=== PATIENT | male | born 1955 | race Caucasian/White ===

== ENCOUNTER 2017-07-03 20:06 | Inpatient (IN) ==
[2017-07-03] MEDS ORDERED: ENOXAPARIN 120 MG/0.8 ML SYRINGE SUBCUT STA (20:28)
[2017-07-03] MEDS ORDERED: ASPIRIN CHEW 81 MG TABLET PO STA (20:28)
[2017-07-03 20:39] LABS: Basophils % 0.4 % (0.0-0.8); Eosinophils # 0.1 10*3/uL (0.0-0.87); Eosinophils % 1.4 % (0.00-10.9); Hematocrit 26.6 VOL% (42.0-52.0); Hemoglobin 9.4 GM/DL (14.0-18.0); Immature Granulocytes % 3.8 %; Immature Granulocytes Absolute 0.28 #; Lymphocytes # 1.7 10*3/uL (1.4-4.0); Lymphocytes % 23.5 % (21.2-54.2); Mean Corpuscular HGB Conc 35.3 GM/DL (32-36); Mean Corpuscular Hemoglobin 30 PG (27-34); Mean Corpuscular Volume 85.8 FL (87-102); Mean Platelet Volume 11.4 FL (9.6-12.0); Monocytes # 0.5 10*3/uL (0.11-0.8); NRBC # 0.13 10*3/uL; Neutrophils # 4.7 10*3/uL (1.4-7.4); Neutrophils % 63.9 % (38.7-73.9); Platelet Count 108 T/CUMM (130-400); Red Cell Distribution Width 18.9 % (9.3-17.3); White Blood Count 7.4 T/CUMM (4-12)
[2017-07-03] MEDS ORDERED: ENOXAPARIN 120 MG/0.8 ML SYRINGE SUBCUT ONE (20:43)
[2017-07-03] MEDS ORDERED: ASPIRIN 325 MG TABLET ONE (20:44)
--- NOTE | 2017-07-03 20:44 | XRay Report ---
Portable chest July 03, 2017 at 2031 hours Indication: Shortness of breath, chest pain Comparison: July 31, 2016 Findings: Cardiomediastinal contours are normal. Lungs are clear bilaterally. No acute osseous abnormalities. Note made of remote cervical fusion, uncomplicated. Visualized upper abdomen demonstrates no acute pathology. Impression: No acute cardiopulmonary findings PROCEDURE INTERPRETED AT [facility] DEPARTMENT OF RADIOLOGY Final Report Signed by: Basilio Cardozo
[2017-07-03 21:00] LABS: Blood Urea Nitrogen 17 MG/DL (7-18); Calcium 9.2 MG/DL (8.5-10.1); Glucose 289 MG/DL (74-106); Osmolality,Calculated 291.4 MOS/KG (273-304); Potassium 3.6 MMOL/L (3.5-5.1); Sodium 140 MMOL/L (136-145); Troponin I Only 0.016 NG/ML (0.00-0.045)
[2017-07-03] MEDS ORDERED: PANTOPRAZOLE 40 MG VIAL IV ONE (21:13)
--- NOTE | 2017-07-03 21:24 | Emergency Department Note ---
IJohan Manpreet, am scribing for, and in the presence of, Nael Meehan MD 20:37 . Zoran Arnold Hans, MD, personally performed the services described in this documentation, ascribed by Vinay Prado in my presence, and it is both accurate and complete . Arrival - Arrival Chief Complaint: Chest Pain Stated Complaint: chest pains ED Nursing Triage Note: C/O Chest pain- burning "behind sternum" and shortness of breath. Onset on and off for 3 weeks; Reports that the pain has been constant all day today. Pt reports that he has been taking Pepto Bismol with minimal relief. Mode of Arrival: Ambulatory Limitations: No Limitations Source: Patient Time Seen by Provider: 07/03/17 20:21 - History of Present Illness HPI Narrative: Pt is a 62 y/o male, with PMHx of HTN, IDDM, NIDDM, HLD, and GERD, who presents to the ED with CC of CP and SOB. The SOB began 2 weeks ago and has been getting worse. The CP began 1 week ago and is described as "a really bad heart burn directly under sternum." Pt states the pain is worse on exertion but is not present currently. Pt's family member states the pain raidates to left arm. Pt' s PCP is Dr. Krunal Cerrato and clerical assigner is Dr. Mena. Pt has had previous Heat Stents placed. No other pains/complaints reported to the ED. Onset (ago): week(s) (3 weeks but constant today) Consistency: constant, intermittent Severity: moderate Quality: burning ("Really bad heart burn") Allergies/Adverse Reactions: Allergies Allergy/AdvReac Type Severity Reaction Status Date / Time No Known Allergies Allergy Verified 05/02/15 06:22 Home Medications: Home Medications Medication Instructions Recorded Confirmed Type Amlodipine Besylate 5 mg PO DAILY 05/01/15 07/31/16 History Atorvastatin [Lipitor] 10 mg PO DAILY 05/01/15 07/31/16 History Cholecalciferol (Vitamin D3) 2,000 unit PO DAILY 05/01/15 07/31/16 History [Vitamin D3] Gabapentin 600 mg PO BID 05/01/15 07/31/16 History Gemfibrozil 600 mg PO BID 05/01/15 07/31/16 History Insulin Aspart Prot/Asp 70/30 90 unit SUBCUT BID 05/01/15 07/31/16 History [NovoLOG Mix 70/30] Omeprazole 20 mg PO DAILY 05/01/15 07/31/16 History Quinapril [Accupril] 10 mg PO DAILY 05/01/15 07/31/16 History Sertraline [Zoloft] 100 mg PO DAILY 05/01/15 07/31/16 History metFORMIN [Glucophage] 500 mg PO BID W/MEALS 05/01/15 07/31/16 History Aspirin Chew Tab 81 mg PO DAILY tablet 08/07/15 07/31/16 Rx Carvedilol [Coreg] 6.25 mg PO BID #60 tablet 08/07/15 07/31/16 Rx Cilostazol [Pletal] 50 mg PO BID #60 tablet 08/07/15 07/31/16 Rx Furosemide Tab [Lasix Tab] 20 mg PO DAILY #30 tablet 08/07/15 07/31/16 Rx Magnesium Chloride [Slow Mag] 128 mg PO BID tablet 08/07/15 07/31/16 Rx Niacin ER [Niaspan] 500 mg PO BEDTIME #30 tablet 08/07/15 07/31/16 Rx Nitroglycerin Sl Tab [Nitrostat] 0.4 mg SL Q5M PRN #25 tablet 08/07/15 07/31/16 Rx Clopidogrel [Plavix] 75 mg PO DAILY #30 tablet 08/01/16 Rx Magnesium Chloride [Slow Mag] 64 mg PO BID #60 tablet 08/01/16 Rx Review of System - Review of System 12 point system: reviewed and no additional remarkable complaints except as stated - Review of System Constitutional: Absent: chills, diaphoresis, fever Respiratory: Present: respiratory distress. Absent: cough Cardiovascular: Present: chest pain. Absent: dyspnea on exertion Gastrointestinal: Absent: abdominal pain, nausea, vomiting Genitourinary male: Absent: dysuria Musculoskeletal: Absent: arm pain, back pain Neurological: Absent: headache, weakness, numbness, paresthesias Medical,Surgical,& Family Hx - Medical History Cardio: History of: Hypertension Psychological: History of: Anxiety Disorders Neurology: No history of: Seizures HEENT: History of: Eye Problem (cherelle cataract) Endocrine: History of: Diabetes Mellitus (IDDM) (novolog sq), Diabetes Mellitus (NIDDM), Dyslipidemia Respiratory: History of: Obstructive Sleep Apnea (uses CPAP) Gastrointestinal: History of: GERD, GI Problems Musculoskeletal: History of: Back/Neck Problems - Surgical History HEENT Surgeries: Surgical HX of: Eye Surgery (CATARACT LT FOR RT 05/21/15) Patient denies: Tonsilectomy & Adenoidectomy Abdominal Surgeries: Surgical HX of: Abdominal Surgery (TO [employer]ACE [employer]) Orthopedic Surgeries: Surgical HX of;: Spinal Surgery (2 CERVICAL DISC REMOVED) - Family History Family History: Reports;: Family Hypertension (father), Family Stroke (father) - Social History Smoking Status: Former smoker Frequency of Alcohol Use: None Type of Drug Use: None Exam Vital Signs: Vital Signs Temperature 97.5 F L 07/03/17 20:16 Pulse Rate 95 H 07/03/17 20:16 Respiratory Rate 20 07/03/17 20:16 Blood Pressure 179/68 07/03/17 20:16 O2 Sat by Pulse Oximetry 97 07/03/17 20:07 - General General appearance: alert, in no apparent distress - Head Head exam: Present: atraumatic, normocephalic, normal inspection - Eye Eye exam: Present: normal appearance, PERRL, EOMI - ENT ENT exam: Present: normal exam, normal oropharynx, mucous membranes moist, TM's normal bilaterally - Neck Neck exam: Present: normal inspection, full ROM, trachea midline - Chest Chest inspection: Present: normal inspection, symmetric chest wall rise. Absent : tenderness - Respiratory Respiratory exam: Present: normal lung sounds bilaterally. Absent: respiratory distress - Cardiovascular Cardiovascular exam: Present: regular rate, normal rhythm, normal heart sounds - Abdominal Exam Abdominal exam: Present: soft, normal bowel sounds. Absent: distention, tenderness, guarding, rebound - Extremities Exam Extremities exam: Present: normal inspection, full ROM. Absent: tenderness - Back Exam Back exam: Present: normal inspection, full ROM. Absent: tenderness - Neurological Exam Neurological exam: Present: alert, oriented X3, CN II-XII intact, reflexes normal - Psychiatric Psychiatric exam: Present: normal affect, normal mood - Skin Skin exam: Present: warm, dry, intact, normal color. Absent: pallor Course Course Narrative: The patient was evaluated in the ER with EKG as well as lab work and his troponin was negative with EKG with initially some ST depression that normalized on repeat EKG. I discussed his presentation with Dr. Setswana is covering for Dr. Cerrato and he agreed to admit the patient for rule out of acute coronary syndrome and trending enzymes. I did also given Protonix 80 mg in the ER because he had some microcytic anemia it was worse than a year ago but his guaiac was negative. We will trend his enzymes in the hospital and he was given a therapeutic dose of Lovenox and a 324 mg chewable aspirin in the ER as well. He had no further chest pain in the ER. Results - Labs CBC & BMP: 07/03/17 20:19 07/03/17 20:19 Lab Results: I have reviewed the patients labs Labs: Laboratory Tests 07/03/17 20:19 WBC 7.4 RBC 3.10 L Hgb 9.4 L Hct 26.6 L MCV 85.8 L MCH 30 MCHC 35.3 RDW 18.9 H Plt Count 108 L MPV 11.4 Neut % (Auto) 63.9 Lymph % (Auto) 23.5 [place] % (Auto) 7.0 Eos % (Auto) 1.4 Baso % (Auto) 0.4 Neut # (Auto) 4.7 Lymph # (Auto) 1.7 [place] # (Auto) 0.5 Eos # (Auto) 0.1 Baso # (Auto) 0.0 Immature Gran % 3.8 Nucleated RBC % 1.8 Immature Gran # 0.28 Nucleated RBCs # 0.13 Immature Plt Fraction 0.0 Laboratory Tests 07/03/17 20:19 WBC 7.4 RBC 3.10 L Hgb 9.4 L Hct 26.6 L MCV 85.8 L MCH 30 MCHC 35.3 RDW 18.9 H Plt Count 108 L MPV 11.4 Neut % (Auto) 63.9 Lymph % (Auto) 23.5 [place] % (Auto) 7.0 Eos % (Auto) 1.4 Baso % (Auto) 0.4 Neut # (Auto) 4.7 Lymph # (Auto) 1.7 [place] # (Auto) 0.5 Eos # (Auto) 0.1 Baso # (Auto) 0.0 Immature Gran % 3.8 Nucleated RBC % 1.8 Immature Gran # 0.28 Nucleated RBCs # 0.13 Immature Plt Fraction 0.0 Laboratory Tests 07/03/17 07/03/17 20:19 20:19 D-Dimer, Quantitative <= 0.5 Sodium 140 Potassium 3.6 Chloride 104 Carbon Dioxide 28 Anion Gap 11.6 BUN 17 Creatinine 1.00 GFR Calculation 105 BUN/Creatinine Ratio 17.00 Glucose 289 H Calculated Osmolality 291.4 Calcium 9.2 Magnesium 2.0 Total Creatine Kinase 148 CK-MB (CK-2) 1.3 Troponin I 0.016 - Diagnostic Findings Procedure: Chest x-ray: report reviewed by me ("Chest X-ray: No acute cardiopulmonary findings.") Disposition Clinical Impression: Atypical chest pain, Chest pain Case discussed with: patient Disposition: Still a Patient Condition: Stable Instructions: Chest Pain (ED) Time of Disposition: 21:24
[2017-07-03] MEDS ORDERED: MAGNESIUM SULF RIDER 2 GM in PREMIX 1 EACH IV PRN (22:58)
[2017-07-03] MEDS ORDERED: MAGNESIUM SULF RIDER 4 GM in PREMIX 1 EACH IV PRN (22:58)
[2017-07-04] MEDS: SODIUM CHLORIDE 0.9% 1,000 ML IV SCH ×3 (00:06→21:07)
[2017-07-04 01:07] LABS: Troponin I Only 0.026 NG/ML (0.00-0.045)
[2017-07-04 05:37] LABS: Basophils % 0.6 % (0.0-0.8); Eosinophils # 0.1 10*3/uL (0.0-0.87); Eosinophils % 1.6 % (0.00-10.9); Hematocrit 26.5 VOL% (42.0-52.0); Hemoglobin 9.1 GM/DL (14.0-18.0); Immature Granulocytes % 3.9 %; Immature Granulocytes Absolute 0.27 #; Lymphocytes # 1.7 10*3/uL (1.4-4.0); Lymphocytes % 24.9 % (21.2-54.2); Mean Corpuscular HGB Conc 34.3 GM/DL (32-36); Mean Corpuscular Hemoglobin 30 PG (27-34); Mean Corpuscular Volume 87.2 FL (87-102); Mean Platelet Volume 11.5 FL (9.6-12.0); Monocytes # 0.5 10*3/uL (0.11-0.8); Monocytes % 7.6 % (1.7-12.7); NRBC # 0.09 10*3/uL; Neutrophils # 4.2 10*3/uL (1.4-7.4); Neutrophils % 61.4 % (38.7-73.9); Platelet Count 94 T/CUMM (130-400); Red Blood Count 3.04 MC/CUMM (3.8-5.5); Red Cell Distribution Width 18.8 % (9.3-17.3); White Blood Count 6.9 T/CUMM (4-12)
[2017-07-04 06:06] LABS: Calcium 8.7 MG/DL (8.5-10.1); Osmolality,Calculated 289.1 MOS/KG (273-304); Potassium 3.7 MMOL/L (3.5-5.1)
--- NOTE | 2017-07-04 06:56 | EKG Report ---
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
[2017-07-04 07:25] LABS: Macrocytosis 1+; Polychromasia Slight; Target Cells Slight
[2017-07-04 07:26] LABS: Platelet Estimate Decreased; Spherocytes 2+
--- NOTE | 2017-07-04 07:44 | EKG Report ---
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
[2017-07-04 08:05] LABS: Troponin I Only 0.017 NG/ML (0.00-0.045)
[2017-07-04] MEDS: PANTOPRAZOLE 40 MG VIAL IV SCH (11:40)
[2017-07-04] MEDS ORDERED: MAGNESIUM SULF RIDER 2 GM in PREMIX 1 EACH IV PRN (12:22)
[2017-07-04] MEDS ORDERED: POTASSIUM CHLORIDE RIDER 10 MEQ in PREMIX 1 EACH IV PRN (12:22)
[2017-07-04] MEDS ORDERED: NITROGLYCERIN SL 0.4 MG TABLET SL PRN (12:23)
--- NOTE | 2017-07-04 12:27 | Cardiology Consult Note ---
Assessment and Plan (1) Crescendo angina Status: Acute Assessment and plan: The patient has been having crescendo angina symptoms. He has known coronary artery disease with previous stenting. His symptoms mirror the last time he needs stents. I think he needs cardiac catheterization for definitive coronary artery assessment and possible revascularization. I discussed the risks and alternatives with the patient today and plan to proceed with this procedure tomorrow via the right radial artery. Current Visit: Yes (2) Coronary artery disease Status: Acute Assessment and plan: As noted above he has a history of multivessel coronary artery disease with previous stenting. His current symptoms warrant repeat workup with cardiac catheterization. Current Visit: Yes (3) History of coronary artery stent placement Status: Acute Current Visit: Yes (4) Diabetes mellitus Status: Acute Assessment and plan: We will resume his usual medications with the exception of holding his metformin to facilitate catheterization. Current Visit: No (5) Dyslipidemia Status: Acute Assessment and plan: Resume usual home medication. Current Visit: No (6) Essential hypertension Status: Acute Assessment and plan: Resume usual home medication. Current Visit: No (7) Obstructive sleep apnea Status: Acute Current Visit: No History of Present Illness - Consult Narrative History of present illness: Mr. Mota is a 62 year old male who is normally followed by Dr. Mena. He has a history of multiple medical problems including hypertension, hyperlipidemia, diabetes, coronary artery disease with previous stenting, obesity, and obstructive sleep apnea. The patient reports that over the last couple of weeks he has noticed having increasing exertional anginal symptoms. This reminds him of the previous time that he needed percutaneous coronary intervention. He has had stents placed twice in the past. [place] reports [place] he developed angina with exertion. These of the same kind of symptoms he has had before. This is a moderate sensation of discomfort or pressure in the left side of his chest which can radiate to his arms. The symptoms seem to improve with rest. There are no associated symptoms such as nausea or diaphoresis. There is no fever, chills, or cough. He does have some mild chronic dyspnea on exertion. He denies any orthopnea, PND, or peripheral edema. He describes some chronic neuropathy symptoms in his legs. He has a long-standing history of hypertension which is been fairly well-controlled on his current medical regimen. He has a long-standing history of diabetes which is also been fairly well controlled. He has hyperlipidemia and is on appropriate medical therapy. He denies any syncope or presyncope. He does state that he has some "heartburn ", although it is unclear if the symptoms may simply represent angina. Today his old records, previous cardiac cath, EKGs, labs, medications were all reviewed. CC: Marvel Cerrato MD - Home Medications and Allergies Home Medications: Home Medications Medication Instructions Recorded Confirmed Type Amlodipine Besylate 5 mg PO DAILY 05/01/15 07/03/17 History Atorvastatin [Lipitor] 10 mg PO DAILY 05/01/15 07/03/17 History Gabapentin 600 mg PO BID 05/01/15 07/03/17 History Gemfibrozil 600 mg PO BID 05/01/15 07/03/17 History Insulin Aspart Prot/Asp 70/30 100 unit SUBCUT BID 05/01/15 07/03/17 History [NovoLOG Mix 70/30] Omeprazole 20 mg PO DAILY 05/01/15 07/03/17 History Quinapril [Accupril] 10 mg PO DAILY 05/01/15 07/03/17 History Sertraline [Zoloft] 100 mg PO DAILY 05/01/15 07/03/17 History metFORMIN [Glucophage] 500 mg PO BID W/MEALS 05/01/15 07/03/17 History Aspirin Chew Tab 81 mg PO DAILY tablet 08/07/15 07/03/17 Rx Carvedilol [Coreg] 6.25 mg PO BID #60 tablet 08/07/15 07/03/17 Rx Cilostazol [Pletal] 50 mg PO BID #60 tablet 08/07/15 07/03/17 Rx Furosemide Tab [Lasix Tab] 20 mg PO DAILY #30 tablet 08/07/15 07/03/17 Rx Nitroglycerin Sl Tab [Nitrostat] 0.4 mg SL Q5M PRN #25 tablet 08/07/15 07/03/17 Rx Clopidogrel [Plavix] 75 mg PO DAILY #30 tablet 08/01/16 07/03/17 Rx Insulin Degludec [Tresiba 34 units SUBCUT BEDTIME 07/03/17 07/03/17 History Flextouch U-100] Ranitidine Tab [Zantac Tab] 1 tablet PO DAILY 09/02/17 09/02/17 History Allergies/Adverse Reactions: Allergies Allergy/AdvReac Type Severity Reaction Status Date / Time No Known Allergies Allergy Verified 05/02/15 06:22 12 point system: reviewed and no additional remarkable complaints except as stated Medical,Surgical,& Family Hx - Medical History Cardio: History of: Hypertension Psychological: History of: Anxiety Disorders Neurology: No history of: Seizures HEENT: History of: Eye Problem (cherelle cataract) Endocrine: History of: Diabetes Mellitus (IDDM) (novolog sq), Diabetes Mellitus (NIDDM), Dyslipidemia Respiratory: History of: Obstructive Sleep Apnea (uses CPAP) Gastrointestinal: History of: GERD, GI Problems Musculoskeletal: History of: Back/Neck Problems - Surgical History Cardiac Surgeries: Sugical HX of: Cardiac Catheterization (2014,2016 Stents x2) , Carotid Endarterectomy HEENT Surgeries: Surgical HX of: Carotid Endarterectomy, Eye Surgery (CATARACT LT FOR RT 05/21/15) Patient denies: Tonsilectomy & Adenoidectomy Abdominal Surgeries: Surgical HX of: Abdominal Surgery (TO REPLACE NAVAL) Orthopedic Surgeries: Surgical HX of;: Spinal Surgery (2 CERVICAL DISC REMOVED) - Family History Family History: Reports;: Family Hypertension (father), Family Stroke (father) - Social History Smoking Status: Former smoker Frequency of Alcohol Use: None Type of Drug Use: None Physical Examination Vital Signs Temp Pulse Resp BP Pulse Ox 97.5 F L 95 H 20 179/68 97 07/03/17 20:07 07/03/17 20:07 07/03/17 20:07 07/03/17 20:07 07/03/17 20:07 Exam: General: Appears well developed, well nourished, no apparent distress HEENT: Normocephalic, morbidly obese, atraumatic Neck: Supple Neck, Midline Trachea, No Bruit, No JVD Cardiac: Regular rhythm, 2 out of 6 murmur, no gallop, no rub Lungs: Clear to auscultation, No Wheeze, Rales, Rhonchi Neuro: Cranial Nerve 2-12 Intact, Motor Function Grossly Intact Abdomen: Soft, Active Bowel Sounds, No Masses, No Pulsations/Bruits Skin: Normal color, no rash Extremities: No Clubbing, No Cyanosis, No Edema, Normal Upper Extr. Pulses Musculoskeletal: No acute abnormality noted Psychiatric: The patient does not appear to be anxious or depressed Result/EKG - Labs CBC & BMP: 07/04/17 05:14 07/04/17 05:14 Lab Results: I have reviewed the past 24 hour labs Labs: Laboratory Results - last 24 hr 07/03/17 07/03/17 07/03/17 20:19 20:19 20:19 WBC 7.4 RBC 3.10 L Hgb 9.4 L Hct 26.6 L MCV 85.8 L MCH 30 MCHC 35.3 RDW 18.9 H Plt Count 108 L MPV 11.4 Neut % (Auto) 63.9 Lymph % (Auto) 23.5 [place] % (Auto) 7.0 Eos % (Auto) 1.4 Baso % (Auto) 0.4 Neut # (Auto) 4.7 Lymph # (Auto) 1.7 [place] # (Auto) 0.5 Eos # (Auto) 0.1 Baso # (Auto) 0.0 Immature Gran % 3.8 Nucleated RBC % 1.8 Immature Gran # 0.28 Nucleated RBCs # 0.13 Platelet Estimate Immature Plt Fraction 0.0 Polychromasia Macrocytosis Spherocytes Target Cells D-Dimer, Quantitative <= 0.5 Sodium 140 Potassium 3.6 Chloride 104 Carbon Dioxide 28 Anion Gap 11.6 BUN 17 Creatinine 1.00 GFR Calculation 105 BUN/Creatinine Ratio 17.00 Glucose 289 H Calculated Osmolality 291.4 Calcium 9.2 Magnesium 2.0 Total Creatine Kinase 148 CK-MB (CK-2) 1.3 Troponin I 0.016 07/03/17 07/04/17 07/04/17 23:57 05:14 05:14 WBC 6.9 RBC 3.04 L Hgb 9.1 L Hct 26.5 L MCV 87.2 MCH 30 MCHC 34.3 RDW 18.8 H Plt Count 94 L MPV 11.5 Neut % (Auto) 61.4 Lymph % (Auto) 24.9 [place] % (Auto) 7.6 Eos % (Auto) 1.6 Baso % (Auto) 0.6 Neut # (Auto) 4.2 Lymph # (Auto) 1.7 [place] # (Auto) 0.5 Eos # (Auto) 0.1 Baso # (Auto) 0.0 Immature Gran % 3.9 Nucleated RBC % 1.3 Immature Gran # 0.27 Nucleated RBCs # 0.09 Platelet Estimate Decreased Immature Plt Fraction 0.0 Polychromasia Slight Macrocytosis 1+ Spherocytes 2+ Target Cells Slight D-Dimer, Quantitative Sodium 142 Potassium 3.7 Chloride 106 Carbon Dioxide 30 Anion Gap 9.7 BUN 17 Creatinine 1.00 GFR Calculation 106 BUN/Creatinine Ratio 17.00 Glucose 194 H Calculated Osmolality 289.1 Calcium 8.7 Magnesium Total Creatine Kinase 132 CK-MB (CK-2) 1.6 Troponin I 0.026 07/04/17 07:17 WBC RBC Hgb Hct MCV MCH MCHC RDW Plt Count MPV Neut % (Auto) Lymph % (Auto) [place] % (Auto) Eos % (Auto) Baso % (Auto) Neut # (Auto) Lymph # (Auto) [place] # (Auto) Eos # (Auto) Baso # (Auto) Immature Gran % Nucleated RBC % Immature Gran # Nucleated RBCs # Platelet Estimate Immature Plt Fraction Polychromasia Macrocytosis Spherocytes Target Cells D-Dimer, Quantitative Sodium Potassium Chloride Carbon Dioxide Anion Gap BUN Creatinine GFR Calculation BUN/Creatinine Ratio Glucose Calculated Osmolality Calcium Magnesium Total Creatine Kinase 94 D CK-MB (CK-2) < 1.0 Troponin I 0.017 - EKG EKG results: interpreted by me Quality Measures - VTE Contraindication to Pharmacological VTE Prophylaxis: Already on Theraputic Agent , No Prophylaxis Needed Specialty Discharge - Follow Up or Referrals
--- NOTE | 2017-07-04 13:06 | EKG Report ---
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
[2017-07-04] MEDS ORDERED: ACETAMINOPHEN 325 MG TABLET PO PRN (13:51)
[2017-07-04] MEDS ORDERED: ONDANSETRON 4 MG/2 ML VIAL IV PRN (13:51)
[2017-07-04] MEDS: amLODIPine 5 MG TABLET PO SCH (13:52)
[2017-07-04] MEDS: ASPIRIN CHEW 81 MG TABLET PO SCH (13:53)
[2017-07-04] MEDS: FUROSEMIDE 20 MG TABLET PO SCH (13:53)
[2017-07-04] MEDS: CLOPIDOGREL 75 MG TABLET PO SCH (13:53)
[2017-07-04] MEDS: ATORVASTATIN 10 MG TABLET PO SCH (13:53)
[2017-07-04] MEDS: QUINAPRIL 20 MG TABLET PO SCH (13:54)
[2017-07-04] MEDS: SERTRALINE 100 MG TABLET PO SCH (13:54)
--- NOTE | 2017-07-04 14:23 | Family Practice History&Phys ---
Assessment and Plan (1) Substernal chest pain Status: Acute Assessment and plan: Patient was admitted with progressive substernal chest pain over the last 2 weeks. The pain is very similar to pain he has had in the past with coronary artery disease. He said coronary artery stenting 2. Have consulted cardiology and tentatively plan for cardiac catheterization in a.m. Current Visit: Yes (2) Unstable angina Status: Acute Assessment and plan: Patient's symptoms are consistent with previous coronary disease. Current Visit: No (3) Exertional dyspnea Status: Acute Assessment and plan: Patient has noted a significant change in his exertional dyspnea. States that he can only walk short distances without developing significant dyspnea. Current Visit: Yes (4) Diabetes mellitus Status: Chronic Assessment and plan: Stable on present medications. Have started sliding scale Current Visit: No (5) Dyslipidemia Status: Chronic Assessment and plan: Stable on present medications Current Visit: No (6) Essential hypertension Status: Chronic Assessment and plan: Stable on present medication Current Visit: No (7) Obstructive sleep apnea Status: Chronic Assessment and plan: Patient is presently using CPAP and states that his symptoms are well controlled Current Visit: No History of Present Illness Chief complaint: Chest pain and dyspnea History of present illness: Mr. Mota is a 62 year old male Patient is a 62-year-old white male who was seen in the emergency room complaining of 2 week history of progressive exertional dyspnea and chest pain. The chest pain is substernal and is very similar to pain he has had in the past with coronary disease. Patient has known coronary artery disease with previous stenting. He apparently has had stenting done twice in the past. His EKGs and isoenzymes were stable in the emergency room. Patient has multiple other risk factors. In view of history we will admit for further evaluation therapy Home Medications Medication Instructions Recorded Confirmed Type Amlodipine Besylate 5 mg PO DAILY 05/01/15 07/03/17 History Atorvastatin [Lipitor] 10 mg PO DAILY 05/01/15 07/03/17 History Gabapentin 600 mg PO BID 05/01/15 07/03/17 History Gemfibrozil 600 mg PO BID 05/01/15 07/03/17 History Insulin Aspart Prot/Asp 70/30 100 unit SUBCUT BID 05/01/15 07/03/17 History [NovoLOG Mix 70/30] Omeprazole 20 mg PO DAILY 05/01/15 07/03/17 History Quinapril [Accupril] 10 mg PO DAILY 05/01/15 07/03/17 History Sertraline [Zoloft] 100 mg PO DAILY 05/01/15 07/03/17 History metFORMIN [Glucophage] 500 mg PO BID W/MEALS 05/01/15 07/03/17 History Aspirin Chew Tab 81 mg PO DAILY tablet 08/07/15 07/03/17 Rx Carvedilol [Coreg] 6.25 mg PO BID #60 tablet 08/07/15 07/03/17 Rx Cilostazol [Pletal] 50 mg PO BID #60 tablet 08/07/15 07/03/17 Rx Furosemide Tab [Lasix Tab] 20 mg PO DAILY #30 tablet 08/07/15 07/03/17 Rx Nitroglycerin Sl Tab [Nitrostat] 0.4 mg SL Q5M PRN #25 tablet 08/07/15 07/03/17 Rx Clopidogrel [Plavix] 75 mg PO DAILY #30 tablet 08/01/16 07/03/17 Rx Insulin Degludec [Tresiba 34 units SUBCUT BEDTIME 07/03/17 07/03/17 History Flextouch U-100] Ranitidine Tab [Zantac Tab] 1 tablet PO DAILY 07/03/17 07/03/17 History Allergies Allergy/AdvReac Type Severity Reaction Status Date / Time No Known Allergies Allergy Verified 05/02/15 06:22 Medical,Surgical,& Family Hx - Medical History Cardio: History of: Hypertension Psychological: History of: Anxiety Disorders Neurology: No history of: Seizures HEENT: History of: Eye Problem (cherelle cataract) Endocrine: History of: Diabetes Mellitus (IDDM) (novolog sq), Diabetes Mellitus (NIDDM), Dyslipidemia Respiratory: History of: Obstructive Sleep Apnea (uses CPAP) Gastrointestinal: History of: GERD, GI Problems Musculoskeletal: History of: Back/Neck Problems - Surgical History Cardiac Surgeries: Sugical HX of: Cardiac Catheterization (2014,2015 Stents x2) , Carotid Endarterectomy HEENT Surgeries: Surgical HX of: Carotid Endarterectomy, Eye Surgery (CATARACT LT FOR RT 05/21/15) Patient denies: Tonsilectomy & Adenoidectomy Abdominal Surgeries: Surgical HX of: Abdominal Surgery (TO REPLACE NAVAL) Orthopedic Surgeries: Surgical HX of;: Spinal Surgery (2 CERVICAL DISC REMOVED) - Family History Family History: Reports;: Family Hypertension (father), Family Stroke (father) - Social History Smoking Status: Former smoker Have you smoked in the last 12 months: No Frequency of Alcohol Use: None Type of Drug Use: None Exam - Constitutional Vitals: Period Temp Pulse Resp BP Sys/Dunn Pulse Ox Last 24 Hr 96.1 F-99.1 F 63-95 18-20 130-185/60-82 96-99 General appearance: no acute distress - Head Head exam: Present: normal inspection - Eye Pupils: Present: STEPHANIE - ENT ENT exam: Present: normal exam - Neck Neck exam: Present: normal inspection - Respiratory Respiratory exam: Present: clear to auscultation bilaterally - Cardiovascular Cardiovascular exam: Present: regular rate and rhythm, systolic murmur - GI/Abdominal GI/Abdominal exam: Present: normal bowel sounds, soft - Extremities Exam Extremities exam: Present: normal inspection - Back Exam Back exam: Present: normal inspection - Neurological Exam Neurological exam: Present: alert, oriented X3 - Psychiatric Psychiatric exam: Present: normal affect, normal mood - Skin Skin exam: Present: normal color Results - Labs CBC & BMP: 07/04/17 05:14 07/04/17 05:14 Quality Measures - VTE Contraindication to Pharmacological VTE Prophylaxis: Already on Theraputic Agent , No Prophylaxis Needed
[2017-07-04 16:04] LABS: Troponin I Only < 0.015 NG/ML (0.00-0.045)
[2017-07-04] MEDS: CARVEDILOL 6.25 MG TABLET PO SCH (16:53)
[2017-07-04] MEDS: INSULIN LISPRO 100 UNIT/ML SUBCUT SCH ×2 (16:53→21:09)
[2017-07-04] MEDS: INSULIN ASPART PROTAMINE/ASPART 70/30 100 UNIT/ML SUBCUT SCH (16:54)
[2017-07-04] MEDS ORDERED: INSULIN DEGLUDEC 34 UNIT SUBCUT SCH (21:00)
[2017-07-04] MEDS: GABAPENTIN 600 MG TABLET PO SCH (21:09)
[2017-07-04] MEDS: GEMFIBROZIL 600 MG TABLET PO SCH (21:09)
[2017-07-04] MEDS: DOCUSATE SODIUM 100 MG CAPSULE PO SCH (21:10)
[2017-07-04] MEDS: CILOSTAZOL 50 MG TABLET PO SCH (21:12)
[2017-07-05 05:15] LABS: Basophils % 0.6 % (0.0-0.8); Eosinophils # 0.1 10*3/uL (0.0-0.87); Eosinophils % 1.9 % (0.00-10.9); Hematocrit 26.6 VOL% (42.0-52.0); Hemoglobin 9.3 GM/DL (14.0-18.0); Immature Granulocytes % 1.9 %; Immature Granulocytes Absolute 0.13 #; Lymphocytes # 1.3 10*3/uL (1.4-4.0); Lymphocytes % 19.7 % (21.2-54.2); Mean Corpuscular Hemoglobin 30 PG (27-34); Mean Corpuscular Volume 86.9 FL (87-102); Mean Platelet Volume 11.6 FL (9.6-12.0); Monocytes # 0.5 10*3/uL (0.11-0.8); Monocytes % 7.5 % (1.7-12.7); NRBC # 0.09 10*3/uL; Neutrophils # 4.7 10*3/uL (1.4-7.4); Neutrophils % 68.4 % (38.7-73.9); Platelet Count 96 T/CUMM (130-400); Red Blood Count 3.06 MC/CUMM (3.8-5.5); Red Cell Distribution Width 18.9 % (9.3-17.3); White Blood Count 6.8 T/CUMM (4-12)
[2017-07-05] MEDS: SODIUM CHLORIDE 0.9% 1,000 ML IV SCH (05:29)
[2017-07-05 05:44] LABS: Eosinophils 1 % (0-10); Hypochromasia 1+; Lymphocytes 20 % (20-55); Microcytosis 1+; Platelet Estimate Decreased; Segmented Neutrophils 73 % (50-85); Total Cells Counted 100
[2017-07-05 05:48] LABS: Calcium 8.6 MG/DL (8.5-10.1); Osmolality,Calculated 282.3 MOS/KG (273-304); Potassium 3.4 MMOL/L (3.5-5.1); Risk Ratio 4.44; VLDL CHOLESTEROL 73.6 MG/DL
[2017-07-05] MEDS ORDERED: diphenhydrAMINE CAP 25 MG CAPSULE PO ONE (07:00)
[2017-07-05] MEDS ORDERED: DIAZEPAM 5 MG TABLET PO ONE (07:00)
[2017-07-05] MEDS: PANTOPRAZOLE 40 MG VIAL IV SCH (08:09)
[2017-07-05] MEDS ORDERED: QUINAPRIL 20 MG TABLET PO SCH (09:00)
[2017-07-05] MEDS ORDERED: FUROSEMIDE 20 MG TABLET PO SCH (09:00)
[2017-07-05] MEDS ORDERED: ATORVASTATIN 10 MG TABLET PO SCH (09:00)
[2017-07-05] MEDS ORDERED: ASPIRIN CHEW 81 MG TABLET PO SCH (09:00)
[2017-07-05] MEDS ORDERED: SERTRALINE 100 MG TABLET PO SCH (09:00)
[2017-07-05] MEDS ORDERED: CLOPIDOGREL 75 MG TABLET PO SCH (09:00)
[2017-07-05] MEDS ORDERED: NON-FORMULARY MEDICATION (Omeprazole [Omeprazole] 20 MG) PO SCH (09:00)
[2017-07-05] MEDS ORDERED: amLODIPine 5 MG TABLET PO SCH (09:00)
[2017-07-05] MEDS ORDERED: HEPARIN/NACL 0.9% 2 UNITS/ML 1,000 ML IV ONE (09:18)
[2017-07-05] MEDS ORDERED: LIDOCAINE 1% 20 ML VIAL ONE (09:18)
[2017-07-05] MEDS ORDERED: VERAPAMIL 5 MG/2 ML VIAL ONE (09:18)
[2017-07-05] MEDS ORDERED: NITROGLYCERIN DRIP 50 MG/250 ML BOTTLE IV ONE (09:18)
[2017-07-05] MEDS: FAMOTIDINE 20 MG TABLET PO SCH (09:47)
[2017-07-05] MEDS: CLOPIDOGREL 75 MG TABLET PO SCH (09:47)
[2017-07-05] MEDS: amLODIPine 5 MG TABLET PO SCH (09:48)
[2017-07-05] MEDS: QUINAPRIL 20 MG TABLET PO SCH (09:52)
[2017-07-05] MEDS: CARVEDILOL 6.25 MG TABLET PO SCH ×2 (09:53→17:37)
[2017-07-05] MEDS: ASPIRIN CHEW 81 MG TABLET PO SCH (09:53)
[2017-07-05] MEDS: CILOSTAZOL 50 MG TABLET PO SCH ×2 (09:54→21:08)
[2017-07-05] MEDS ORDERED: MIDAZOLAM 2 MG/2 ML VIAL ONE (10:06)
[2017-07-05] MEDS ORDERED: HYDROmorphone 2 MG/1 ML VIAL ONE (10:06)
[2017-07-05] MEDS ORDERED: ENOXAPARIN 30 MG/0.3 ML SYRINGE ONE (10:21)
[2017-07-05] MEDS ORDERED: CLOPIDOGREL 300 MG TABLET ONE (10:28)
--- NOTE | 2017-07-05 11:05 | Cardiac Catheterization ---
Date of Procedure:: 07/05/17 Procedure: CLINICAL HISTORY: The patient has a known history of coronary artery disease with previous stenting. He presented with crescendo angina symptoms and is undergoing cardiac catheterization for definitive coronary artery assessment possible revascularization. PROCEDURES PERFORMED: 1. Right radial percutaneous arteriotomy 2. Left heart catheterization 3. Resting hemodynamics 4. Left ventriculography. 5. Coronary arteriography 6. Hemoband placement 7. Successful percutaneous coronary intervention to the mid left anterior descending coronary artery with a 2.5 x 15 mm Xience alpine drug-eluting stent placed at 15 jerel of pressure. 8. Successful percutaneous coronary intervention to the mid right coronary artery with a 2.5 x 12 mm Xience alpine drug-eluting stent inflated to 20 jerel of pressure. DESCRIPTION OF PROCEDURE: After obtaining informed consent, the patient was taken to the slab polisher, prepped and draped in the usual sterile manner. We accessed the right radial artery using modified Seldinger technique in the usual fashion. We placed a 6-[place] slim sheath without difficulty. We then used a Tig catheter to engage the right coronary and left main coronary arteries to perform angiography in multiple orthogonal views. We then proceeded directly to percutaneous coronary intervention. The high-grade disease in the mid left anterior descending coronary artery and in the mid right coronary artery. We engaged the left main coronary artery with a EBU 3.5 interventional guide and passed PT Graphix wire beyond the area of stenosis in the LAD. We performed primary stenting with a 2.5 x 15 mm Xience alpine drug- eluting stent. An excellent angiographic result was achieved. We then removed this catheter and used an AR-1 interventional guide to engage the right coronary artery and passed a PT Graphix wire beyond the area of stenosis in this vessel. We then perform primary stenting with a 2.5 x 12 mm Xience alpine drug-eluting stent. An excellent angiographic result was achieved. There were no problems or complications during the procedure. We then used an angled pigtail catheter to perform a left heart catheterization with left ventriculogram and pressure measurement in the usual fashion. After removing the catheter, we placed a HemoBand and removed the sheath without difficulty. There were no problems during the case. HEMODYNAMICS: Please see the accompanying data sheet. Left jugular end- diastolic pressure was 29 mmHg CORONARIES: The left main coronary artery is a large-caliber vessel which trifurcates into the left anterior descending left circumflex and ramus intermedius branches. The left main coronary artery is angiographically free of significant obstructive disease. The left circumflex coronary artery is a moderate-sized vessel which gives off a very small first obtuse marginal branch. The second obtuse marginal was occluded at its origin and fills via collaterals. There is a extensive posterior lateral system. There are mild luminal irregularities of up to 50 % in the mid circumflex coronary artery. The distal vessel also has a 60% stenosis at a bifurcation point. The left anterior descending is a moderate-sized vessel gives off a moderate- sized diagonal branch and wraps the apex. There is some diffuse moderate disease of 30-40% throughout the proximal to mid vessel, as well as in the distal vessel. There is a focal area of 90% stenosis distal to the first diagonal branch. The right coronary artery is a moderate-sized vessel which gives off the posterior descending artery. There is a focal 90% stenosis in the mid vessel. There is a stent in the proximal to mid vessel which is widely patent. LEFT VENTRICULOGRAPHY: Left ventriculogram shows left ventricular ejection fraction of approximately 60-65% with normal regional wall motion. IMPRESSION: 1. Successful percutaneous coronary intervention to the mid left anterior descending coronary artery with a 2.5 x 50 mm Xience alpine drug-eluting stent. 2. Successful percutaneous coronary intervention to the mid right coronary artery with a 2.5 x 12 mm Xience alpine drug-eluting stent. 3. Mild to moderate elevated left ventricular end-diastolic pressure. 4. Normal left ventricular systolic function as described above. PLAN: Patient underwent successful revascularization of his right and left anterior descending coronary arteries. We will monitor him on telemetry overnight and continue medical management. If he does well overnight I would anticipate possible discharge home tomorrow. There were no apparent problems or complications with the procedure. Anesthesia: minimal conscious sedation Surgeon / Physician: Sebastian Juarez Estimated blood loss: minimal Condition: stable Disposition: floor - Medications / Follow-up
[2017-07-05] MEDS ORDERED: SODIUM CHLORIDE 0.9% 1,000 ML IV SCH (11:30)
[2017-07-05] MEDS: ATORVASTATIN 10 MG TABLET PO SCH (12:55)
[2017-07-05] MEDS: INSULIN ASPART PROTAMINE/ASPART 70/30 100 UNIT/ML SUBCUT SCH ×2 (12:55→17:37)
[2017-07-05] MEDS: INSULIN LISPRO 100 UNIT/ML SUBCUT SCH ×4 (12:56→21:08)
[2017-07-05] MEDS: GEMFIBROZIL 600 MG TABLET PO SCH ×2 (12:57→21:08)
[2017-07-05] MEDS: DOCUSATE SODIUM 100 MG CAPSULE PO SCH ×2 (12:58→21:08)
[2017-07-05] MEDS: GABAPENTIN 600 MG TABLET PO SCH ×2 (12:58→21:08)
[2017-07-05] MEDS: FUROSEMIDE 20 MG TABLET PO SCH (12:58)
--- NOTE | 2017-07-05 13:24 | Family Practice Progress Note ---
Family Practice - PN: Subj Interval history: 07/05/17 -patient is presently stable following cardiac catheterization with successful stenting of two vessels. Patient tolerated procedure well with no complications. Presently doing well. His labs are stable except for slight decrease in the potassium 3.4 which has been supplemented. His physical examination is otherwise stable. We will continue present treatment plan Exam (Progress Note) - Constitutional Vitals: Period Temp Pulse Resp BP Sys/Dunn Pulse Ox Last 24 Hr 95.2 F-99.3 F 65-80 18-20 128-148/55-78 92-99 Results - Labs CBC & BMP: 07/05/17 04:56 07/05/17 04:56 Assessment and Plan (1) Substernal chest pain Status: Acute Assessment and plan: Patient was admitted with progressive substernal chest pain over the last 2 weeks. The pain is very similar to pain he has had in the past with coronary artery disease. He said coronary artery stenting 2. Have consulted cardiology and tentatively plan for cardiac catheterization in a.m. Current Visit: Yes (2) Unstable angina Status: Acute Assessment and plan: Patient's symptoms are consistent with previous coronary disease. Current Visit: No (3) Exertional dyspnea Status: Acute Assessment and plan: Patient has noted a significant change in his exertional dyspnea. States that he can only walk short distances without developing significant dyspnea. Current Visit: Yes (4) Diabetes mellitus Status: Chronic Assessment and plan: Stable on present medications. Have started sliding scale Current Visit: No (5) Dyslipidemia Status: Chronic Assessment and plan: Stable on present medications Current Visit: No (6) Essential hypertension Status: Chronic Assessment and plan: Stable on present medication Current Visit: No (7) Obstructive sleep apnea Status: Chronic Assessment and plan: Patient is presently using CPAP and states that his symptoms are well controlled Current Visit: No Quality Measures - VTE Contraindication to Pharmacological VTE Prophylaxis: Already on Theraputic Agent , No Prophylaxis Needed Specialty Discharge - Follow Up or Referrals
--- NOTE | 2017-07-05 13:25 | EKG Report ---
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
[2017-07-05] MEDS: SERTRALINE 100 MG TABLET PO SCH (13:31)
[2017-07-05] MEDS ORDERED: ALUMINUM/MAGNES/SIMETH MAX STR 30 ML UDCUP PO PRN (14:29)
[2017-07-05] MEDS ORDERED: MORPHINE 2 MG/1 ML SYRINGE ONE ×2 (14:43→14:58)
[2017-07-05] MEDS ORDERED: ALUM/MAG/SIMETH/LIDO VISC 1:1 30 ML BOTTLE PO ONE ×2 (15:19→17:14)
--- NOTE | 2017-07-05 15:29 | Event Note ---
I was called to see the patient after he developed some epigastric/chest discomfort. He felt very nauseated and was somewhat diaphoretic. This occurred after he had eaten lunch and falling asleep. He had an EKG which did not show any significant changes. He received nitroglycerin and morphine which really did not change his symptoms much. He then had a minor episode of vomiting which seemed to relieve his symptoms. We repeated another EKG and also appears to be normal. The symptoms are really not like his exertional angina. At this point, given his normal EKGs, I am suspicious his symptoms are GI related. I am going to try a GI cocktail and check back with him in a little while. If his symptoms persist we may have little choice but to repeat catheterization for definitive coronary artery reassessment, but as he is feeling better and his EKGs are normal, perhaps this will be necessary.
[2017-07-05 15:46] LABS: Troponin I Only < 0.015 NG/ML (0.00-0.045)
--- NOTE | 2017-07-05 16:26 | Event Note ---
The patient underwent cardiac catheterization with stenting of his left anterior descending and right coronary arteries earlier today via a right radial approach. He subsequently had some epigastric discomfort after eating and lying down. His symptoms did not improve with nitroglycerin. Morphine helped just a little bit. Ultimately, the symptoms promptly resolved with belching/minor vomiting. His EKG was normal 3 over a period of a couple of hours. Since we had done the catheterization by the right radial approach, and his EKG was normal, I actually got him up and we walked completely around the large hallway of the telemetry unit and he had no chest pain or dyspnea. Based on all of the available data I think his symptoms were GI related, not cardiac ischemia. We will continue conservative management and if he does well I would anticipate being able to discharge him home tomorrow.
[2017-07-05] MEDS ORDERED: MORPHINE 2 MG/1 ML SYRINGE IV PRN (17:14)
[2017-07-05] MEDS: POTASSIUM CHLORIDE INJ 10 MEQ in SODIUM CHLORIDE 0.9% 1,000 ML IV SCH ×2 (17:42→23:57)
[2017-07-06 05:49] LABS: Basophils % 0.3 % (0.0-0.8); Eosinophils # 0.1 10*3/uL (0.0-0.87); Eosinophils % 1.1 % (0.00-10.9); Hematocrit 23.9 VOL% (42.0-52.0); Hemoglobin 8.3 GM/DL (14.0-18.0); Immature Granulocytes % 1.7 %; Immature Granulocytes Absolute 0.11 #; Lymphocytes # 0.9 10*3/uL (1.4-4.0); Lymphocytes % 13.9 % (21.2-54.2); Mean Corpuscular HGB Conc 34.7 GM/DL (32-36); Mean Corpuscular Hemoglobin 30 PG (27-34); Mean Corpuscular Volume 87.5 FL (87-102); Mean Platelet Volume 11.7 FL (9.6-12.0); Monocytes # 0.5 10*3/uL (0.11-0.8); Monocytes % 7.4 % (1.7-12.7); NRBC # 0.04 10*3/uL; Neutrophils # 4.9 10*3/uL (1.4-7.4); Neutrophils % 75.6 % (38.7-73.9); Platelet Count 100 T/CUMM (130-400); Red Blood Count 2.73 MC/CUMM (3.8-5.5); Red Cell Distribution Width 19.1 % (9.3-17.3); White Blood Count 6.5 T/CUMM (4-12)
[2017-07-06 06:21] LABS: Calcium 8.2 MG/DL (8.5-10.1); Osmolality,Calculated 281.3 MOS/KG (273-304); Potassium 3.5 MMOL/L (3.5-5.1)
[2017-07-06 06:28] LABS: Troponin I Only < 0.015 NG/ML (0.00-0.045)
[2017-07-06 07:15] LABS: Apearance,Urine CLEAR (Clear); Bilirubin,Urine Negative (Negative); Blood, Urine Negative (Negative); Glucose,Urine (UA) 50 mg/dL (Negative); Ketones,Urine Negative (Negative); Nitrite,Urine Negative (Negative); Protein,Urine 100 MG/DL; RBC,Urine <1 /HPF (0-4); Squamous Epithelial Cell,Urine Occasional /HPF (0-10); Urine Color Yellow (Yellow); Urine Specific Gravity 1.016 (1.001-1.035)
--- NOTE | 2017-07-06 07:58 | Discharge Summary ---
Hospital Course - Hospital Course Hospital Course: Patient 62-year-old male with presents emergency room with persistent and recurring substernal chest pain. Patient states it was typical of his prior bouts of angina. Was seen by Dr. Juarez underwent left heart catheterization on 07/05/2017. Patient was found to have 2 significant coronary artery stenotic lesions which were treated with angioplasty and stenting. Patient's tolerated this quite well but states he had an episode of chest pain last night that he states was quite severe but different from his prior angina. Negative EKGs and negative cardiac isoenzymes. He had not been begun on his PPI that he takes regularly. Patient is pain-free this morning and anxious for discharge. Repeat enzymes last night were negative. I will discharge him home today on present meds and see him back in 2 weeks time. Specialty Discharge - Follow Up or Referrals Discharge Plan - Discharge Data Disposition: Disch To Home/Self Care Condition at Discharge: Stable Discharge Diet: advance to your usual diet Activity: resume usual activities as tolerated Hygiene: no restrictions Weight Bearing at Discharge: full weight bearing Driving: no restrictions Contact your physician if you experience:: Shortness of breath - Discharge Medications Continue Omeprazole 20 mg PO DAILY Insulin Aspart Prot/Asp 70/30 [NovoLOG Mix 70/30] 100 unit SUBCUT BID Sertraline [Zoloft] 100 mg PO DAILY Amlodipine Besylate 5 mg PO DAILY Gemfibrozil 600 mg PO BID Gabapentin 600 mg PO BID Quinapril [Accupril] 10 mg PO DAILY Atorvastatin [Lipitor] 10 mg PO DAILY metFORMIN [Glucophage] 500 mg PO BID W/MEALS Aspirin Chew Tab 81 mg PO DAILY tablet Carvedilol [Coreg] 6.25 mg PO BID #60 tablet Furosemide Tab [Lasix Tab] 20 mg PO DAILY #30 tablet Nitroglycerin Sl Tab [Nitrostat] 0.4 mg SL Q5M PRN #25 tablet PRN Reason: Chest Pain Cilostazol [Pletal] 50 mg PO BID #60 tablet Clopidogrel [Plavix] 75 mg PO DAILY #30 tablet Insulin Degludec [Tresiba Flextouch U-100] 34 units SUBCUT BEDTIME Ranitidine Tab [Zantac Tab] 1 tablet PO DAILY - Follow Up or Referral Follow Up: Marvel Cerrato MD [Physician] - 2 Weeks - Forms/Instructions Instructions: Chest Pain (ED) Exam - Constitutional Vitals: Period Temp Pulse Resp BP Sys/Dunn Pulse Ox Last 24 Hr 95.2 F-98.8 F 62-77 18-20 118-157/55-78 92-97 Exam: Objectively well-developed gentleman in no acute distress is working alert and able to give an excellent history. Cardiovascular: Heart rates regular without murmurs or gallops. Respiratory: Lungs clear to auscultation bilaterally. Abdomen: Abdomen soft and nontender to palpation. Extremities: There is no calf swelling or tenderness. Discharge Results Labs on day of discharge: Labs from last 24 hours 07/06/17 07/06/17 07/06/17 07:00 04:58 04:58 WBC RBC Hgb Hct MCV MCH MCHC RDW Plt Count MPV Neut % (Auto) Lymph % (Auto) Bath % (Auto) Eos % (Auto) Baso % (Auto) Neut # (Auto) Lymph # (Auto) Bath # (Auto) Eos # (Auto) Baso # (Auto) Immature Gran % Nucleated RBC % Immature Gran # Nucleated RBCs # Immature Plt Fraction Sodium 141 Potassium 3.5 Chloride 105 Carbon Dioxide 29 Anion Gap 10.5 BUN 18 Creatinine 1.10 GFR Calculation 95 BUN/Creatinine Ratio 16.00 Glucose 76 POC Glucose Calculated Osmolality 281.3 Calcium 8.2 L Total Creatine Kinase 69 D CK-MB (CK-2) < 1.0 Troponin I < 0.015 Urine Color Yellow Urine Appearance Clear Urine pH 5.0 Ur Specific [place] 1.016 Urine Protein 100 Urine Glucose (UA) 50 Urine Ketones Negative Urine Blood Negative Urine Nitrate Negative Urine Bilirubin Negative Urine Urobilinogen 4.0 H Urine Leukocytes Negative Urine RBC <1 Ur Squamous Epith Cells Occasional Ur Culture Indicated? Not indicated 07/06/17 07/05/17 07/05/17 04:58 20:05 15:48 WBC 6.5 RBC 2.73 L Hgb 8.3 L Hct 23.9 L MCV 87.5 MCH 30 MCHC 34.7 RDW 19.1 H Plt Count 100 L MPV 11.7 Neut % (Auto) 75.6 H Lymph % (Auto) 13.9 L Bath % (Auto) 7.4 Eos % (Auto) 1.1 Baso % (Auto) 0.3 Neut # (Auto) 4.9 Lymph # (Auto) 0.9 L Bath # (Auto) 0.5 Eos # (Auto) 0.1 Baso # (Auto) 0.0 Immature Gran % 1.7 Nucleated RBC % 0.6 Immature Gran # 0.11 Nucleated RBCs # 0.04 Immature Plt Fraction 7.2 H Sodium Potassium Chloride Carbon Dioxide Anion Gap BUN Creatinine GFR Calculation BUN/Creatinine Ratio Glucose POC Glucose 271 H 235 H Calculated Osmolality Calcium Total Creatine Kinase CK-MB (CK-2) Troponin I Urine Color Urine Appearance Urine pH Ur Specific [place] Urine Protein Urine Glucose (UA) Urine Ketones Urine Blood Urine Nitrate Urine Bilirubin Urine Urobilinogen Urine Leukocytes Urine RBC Ur Squamous Epith Cells Ur Culture Indicated? 07/05/17 07/05/17 07/05/17 15:01 11:33 07:42 WBC RBC Hgb Hct MCV MCH MCHC RDW Plt Count MPV Neut % (Auto) Lymph % (Auto) Bath % (Auto) Eos % (Auto) Baso % (Auto) Neut # (Auto) Lymph # (Auto) Bath # (Auto) Eos # (Auto) Baso # (Auto) Immature Gran % Nucleated RBC % Immature Gran # Nucleated RBCs # Immature Plt Fraction Sodium Potassium Chloride Carbon Dioxide Anion Gap BUN Creatinine GFR Calculation BUN/Creatinine Ratio Glucose POC Glucose 169 H 161 H Calculated Osmolality Calcium Total Creatine Kinase 87 CK-MB (CK-2) 1.1 Troponin I < 0.015 Urine Color Urine Appearance Urine pH Ur Specific [place] Urine Protein Urine Glucose (UA) Urine Ketones Urine Blood Urine Nitrate Urine Bilirubin Urine Urobilinogen Urine Leukocytes Urine RBC Ur Squamous Epith Cells Ur Culture Indicated? 07/06/2017: Patient's isoenzymes remained negative DS: Provider Date of admission: 07/03/17 21:20 Primary care physician: . No PCP Attending physician on admission: Marvel Cerrato MD Consults: 07/03/17 22:58 Consult to Physician [CONS] Routine Comment: Consulting Provider: Consult to Specialist Group: Cardiology When should Consulting Provider be notified: In am Person Notified: Dr. Ann CANCHOLA Date Notified: 07/04/17 Time Notified: 07:46 Discharging clinician: Marvel Cerrato MD Expected date of discharge: 07/06/17
[2017-07-06] MEDS: INSULIN LISPRO 100 UNIT/ML SUBCUT SCH (08:14)
[2017-07-06 08:25] VITALS: BP 137/82
[2017-07-06] MEDS: PANTOPRAZOLE 40 MG VIAL IV SCH (08:56)
[2017-07-06] MEDS: GEMFIBROZIL 600 MG TABLET PO SCH (08:57)
[2017-07-06] MEDS: CILOSTAZOL 50 MG TABLET PO SCH (08:57)
[2017-07-06] MEDS: GABAPENTIN 600 MG TABLET PO SCH (08:58)
[2017-07-06] MEDS: CLOPIDOGREL 75 MG TABLET PO SCH (08:59)
[2017-07-06] MEDS: SERTRALINE 100 MG TABLET PO SCH (08:59)
[2017-07-06] MEDS: ASPIRIN CHEW 81 MG TABLET PO SCH (09:00)
[2017-07-06] MEDS: FUROSEMIDE 20 MG TABLET PO SCH (09:00)
[2017-07-06] MEDS: DOCUSATE SODIUM 100 MG CAPSULE PO SCH (09:00)
[2017-07-06] MEDS: FAMOTIDINE 20 MG TABLET PO SCH (09:00)
[2017-07-06] MEDS: CARVEDILOL 6.25 MG TABLET PO SCH (09:01)
[2017-07-06] MEDS: ATORVASTATIN 10 MG TABLET PO SCH (09:01)
[2017-07-06] MEDS: amLODIPine 5 MG TABLET PO SCH (09:01)
[2017-07-06] MEDS: QUINAPRIL 20 MG TABLET PO SCH (09:16)
[2017-07-06] MEDS: INSULIN ASPART PROTAMINE/ASPART 70/30 100 UNIT/ML SUBCUT SCH (09:44)
--- NOTE | 2017-07-06 09:52 | EKG Report ---
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
--- NOTE | 2017-07-06 09:54 | EKG Report ---
Stationary ECG Study [facility] Test Date: 07/05/2017 3:23:15 PM Pat Name: EKATERINA MCCRAY Department: Room: 286 Gender: M Clinical Trial Educator: : 1955 Requested by: Sameer Reardon Order Number: [id number] Reading MD: ANGEILCA LEE Intervals [place] Rate: 63 P: 8 [place]: 169 QRS: 5 QRSD: 80 T: 20 QT: 415 QTc: 422 Interpretive Statements SINUS RHYTHM Electronically Signed On 07-06-17 15:32:57 CDT by ANGELICA LEE [id number]
--- NOTE | 2017-07-06 09:54 | EKG Report ---
Stationary ECG Study [facility] Test Date: 07/05/2017 4:12:57 PM Pat Name: EKATERINA MCCRAY Department: Room: 286 Gender: M [place] Rafting Guide: : 1955 Requested by: Sameer Reardon Order Number: [id number] Reading MD: ANGELICA LEE Intervals [place] Rate: 71 P: 55 [place]: 165 QRS: 11 QRSD: 94 T: 29 QT: 406 QTc: 429 Interpretive Statements SINUS RHYTHM Electronically Signed On 07-06-17 15:33:12 CDT by ANGELICA LEE [id number]
[2017-07-06] MEDS ORDERED: POTASSIUM CHLORIDE 20 MEQ TABLET PO SCH (11:30)
--- NOTE | 2017-07-06 18:11 | Cardiology Progress Note ---
I, Kristyn Ohara NP, am scribing for, and in the presence of, Toni Mena MD 18:05. Assessment and Plan - Time spent with patient Time spent with patient: Greater than 30 minutes (Record review, assessment, and documentation) (1) Coronary artery disease Status: Chronic Assessment and plan: The patient had 2 new stents, he feels better. A few hours after the stents, he had severe chest pain without EKG changes. As it turns out it was his esophagus. Cardiac isoenzymes and EKGs are negative. I encouraged him to continue taking his medication as directed He is to call if he has recurrence of chest pain or shortness of breath I discussed with him about GE reflux precautions. He agrees. I conferred care with his nurse, Emani , to ensure he get a GE reflux sheet. I encouraged him use his CPAP I will follow-up with him on 07/12 in the afternoon. Sooner if needed For now he will continue the Pletal and the clopidogrel. His hematocrit is slightly low. We will recheck that when I see him on 04/11, CBC and probably a CMP. (2) Crescendo angina Status: Resolved Assessment and plan: SEE PLAN LISTED BELOW (3) Diabetes mellitus Status: Chronic Assessment and plan: SEE PLAN LISTED BELOW (4) Dyslipidemia Status: Chronic Assessment and plan: SEE PLAN LISTED BELOW (5) Essential hypertension Status: Chronic Assessment and plan: SEE PLAN LISTED BELOW (6) Obstructive sleep apnea Status: Chronic Assessment and plan: SEE PLAN LISTED BELOW Cardiology - PN: Subj Interval history: SACK DEPARTMENT SUPERVISOR: Dr. Mena Summary: Mr. Mota is a 62-year-old male followed by Dr. Mena. Patient presented to emergency on 07/04/17 with complaints of increasing exertional anginal symptoms. He had a history of PCI in the past. The patient underwent cardiac cath via right radial approach. The patient received PCI to the mid LAD and mid RCA, mild to moderate elevated left ventricular end-diastolic pressure was noted, normal LV systolic function noted. The patient did well post PCI, however there was one episode on 07/05/17 after eating lunch where the patient developed some epigastric/chest discomfort. He became very nauseated and diaphoretic. EKGs were normal, and his symptoms were not relieved with nitroglycerin. Morphine did provide some mild improvement. The symptoms did improve with some belching and minor vomiting. EKG remained normal over a couple of hours. Patient was water in the unit and did not develop any exertional angina. He had been off of his PPI for a few days. Today the patient was seen sitting up on the side of the bed. He denies any complaints of epigastric or chest pain throughout the night. Vital signs have remained stable, sinus rhythm noted on youth nutritional monitor. Hemoglobin and hematocrit have dropped some to 8.3 and 24. Sodium 141, potassium 3.5, BUN 18, creatinine 1.1, troponin, CK MB, and total creatinine kinase are negative. Triglycerides 368, cholesterol 111, LDL 46, HDL 25. Urinalysis negative. The patient will be discharged home today, and will follow up with Dr. Mena on July 12, 2017 or one week. Will need CBC, BMP with mag and EKG prior to appointment. ASSESSMENT/PLAN: 1. CRESCENDO ANGINA -resolved, PCI to LAD and RCA. 2. CAD -continue medications. 3. DIABETES -monitored and meds continue. 4. HYPERTENSION -controlled, continue meds. 5. DYSLIPIDEMIA -continue Lipitor and lipid, weight loss. 6. OBSTRUCTIVE SLEEP APNEA - continue CPAP, weight loss. Discharge medications: Norvasc 5 mg p.o. daily Aspirin 81 mg p.o. daily Lipitor 10 mg p.o. daily Coreg 6.25 mg p.o. twice daily Pletal 50 mg p.o. twice daily Plavix 75 mg p.o. daily Lasix 20 mg p.o. daily Lopid 600 mg p.o. twice daily Accupril 10 mg p.o. daily Exam (Progress Note) - Constitutional Vitals: Period Temp Pulse Resp BP Sys/Dunn Pulse Ox Last 24 Hr 95.2 F-98.8 F 62-77 18-20 118-157/55-82 92-97 Exam: General: Appears well with no apparent distress, obese pleasant and cooperative. Appears comfortable. HEENT: PERRL, normocephalic, atraumatic. Mucous membranes moist. No jaundice noted. Conjunctiva moist and clear, sclerae anicteric. Neck: No JVD/HJR, no thyromegaly or lymphadenopathy noted. No carotid bruit appreciated. Cardiac: Regular rate and rhythm. No murmur rub or gallop. PMI is nondisplaced. Lungs: Clear to auscultation without accessory muscle use to assist the respiratory pattern. No oxygen required. Abdomen: Soft, bowel sounds normoactive. Nontender and nondistended. No abdominal bruit or thrill noted. No masses noted. Musculoskeletal: No fluid collection. Full range of motion is noted. Extremities: No clubbing, cyanosis noted. No edema noted. Upper extremity pulses 2+. Lower extremity pulses 2+. Capillary refill less than 3 seconds. Skin: No unusual lesions or rashes. No skin breakdown appreciated. Neuro: Awake, alert and oriented 3. Moves all extremities well without hemiparesis or paralysis. No essential tremor is appreciated. Result/EKG - Labs CBC & BMP: 07/06/17 04:58 07/06/17 04:58 Lab Results: I have reviewed the past 24 hour labs Labs: Laboratory Results - last 24 hr 07/05/17 07/05/17 07/05/17 11:33 15:01 15:48 WBC RBC Hgb Hct MCV MCH MCHC RDW Plt Count MPV Neut % (Auto) Lymph % (Auto) [place] % (Auto) Eos % (Auto) Baso % (Auto) Neut # (Auto) Lymph # (Auto) [place] # (Auto) Eos # (Auto) Baso # (Auto) Immature Gran % Nucleated RBC % Immature Gran # Nucleated RBCs # Immature Plt Fraction Sodium Potassium Chloride Carbon Dioxide Anion Gap BUN Creatinine GFR Calculation BUN/Creatinine Ratio Glucose POC Glucose 169 H 235 H Calculated Osmolality Calcium Total Creatine Kinase 87 CK-MB (CK-2) 1.1 Troponin I < 0.015 Urine Color Urine Appearance Urine pH Ur Specific [place] Urine Protein Urine Glucose (UA) Urine Ketones Urine Blood Urine Nitrate Urine Bilirubin Urine Urobilinogen Urine Leukocytes Urine RBC Ur Squamous Epith Cells Ur Culture Indicated? 07/05/17 07/06/17 07/06/17 20:05 04:58 04:58 WBC 6.5 RBC 2.73 L Hgb 8.3 L Hct 23.9 L MCV 87.5 MCH 30 MCHC 34.7 RDW 19.1 H Plt Count 100 L MPV 11.7 Neut % (Auto) 75.6 H Lymph % (Auto) 13.9 L [place] % (Auto) 7.4 Eos % (Auto) 1.1 Baso % (Auto) 0.3 Neut # (Auto) 4.9 Lymph # (Auto) 0.9 L [place] # (Auto) 0.5 Eos # (Auto) 0.1 Baso # (Auto) 0.0 Immature Gran % 1.7 Nucleated RBC % 0.6 Immature Gran # 0.11 Nucleated RBCs # 0.04 Immature Plt Fraction 7.2 H Sodium 141 Potassium 3.5 Chloride 105 Carbon Dioxide 29 Anion Gap 10.5 BUN 18 Creatinine 1.10 GFR Calculation 95 BUN/Creatinine Ratio 16.00 Glucose 76 POC Glucose 271 H Calculated Osmolality 281.3 Calcium 8.2 L Total Creatine Kinase CK-MB (CK-2) Troponin I Urine Color Urine Appearance Urine pH Ur Specific [place] Urine Protein Urine Glucose (UA) Urine Ketones Urine Blood Urine Nitrate Urine Bilirubin Urine Urobilinogen Urine Leukocytes Urine RBC Ur Squamous Epith Cells Ur Culture Indicated? 07/06/17 07/06/17 07/06/17 04:58 07:00 07:33 WBC RBC Hgb Hct MCV MCH MCHC RDW Plt Count MPV Neut % (Auto) Lymph % (Auto) [place] % (Auto) Eos % (Auto) Baso % (Auto) Neut # (Auto) Lymph # (Auto) [place] # (Auto) Eos # (Auto) Baso # (Auto) Immature Gran % Nucleated RBC % Immature Gran # Nucleated RBCs # Immature Plt Fraction Sodium Potassium Chloride Carbon Dioxide Anion Gap BUN Creatinine GFR Calculation BUN/Creatinine Ratio Glucose POC Glucose 99 Calculated Osmolality Calcium Total Creatine Kinase 69 D CK-MB (CK-2) < 1.0 Troponin I < 0.015 Urine Color Yellow Urine Appearance Clear Urine pH 5.0 Ur Specific [place] 1.016 Urine Protein 100 Urine Glucose (UA) 50 Urine Ketones Negative Urine Blood Negative Urine Nitrate Negative Urine Bilirubin Negative Urine Urobilinogen 4.0 H Urine Leukocytes Negative Urine RBC <1 Ur Squamous Epith Cells Occasional Ur Culture Indicated? Not indicated - EKG EKG results: interpreted by me, sinus rhythm Quality Measures - VTE Contraindication to Pharmacological VTE Prophylaxis: Already on Theraputic Agent , No Prophylaxis Needed Specialty Discharge - Follow Up or Referrals Follow up with: Marvel Cerrato MD [Physician] - 2 Weeks Toni Mena MD [Physician] - 07/12/17 1:30 pm IRajesh Dale, MD, personally performed the services described in this documentation, ascribed by Kristyn Ohara NP in my presence, and it is both accurate and complete [id number] .
== END 2017-07-06 10:43 | disposition home or self-care (01) | DRG 247 ==
LOC: N.ED 20:06 → N.EDINP 21:20 → N.TELEN 21:51
PROVIDERS: ADMIT Family Medicine; ATTEND Family Medicine
PROC: CLCCHCL (ICD-10-PCS; 2017-07-05 10:15)

== ENCOUNTER 2017-07-12 09:47 | Inpatient (IN) ==
[2017-07-12] MEDS ORDERED: ASPIRIN 325 MG TABLET PO STA (09:51)
[2017-07-12] MEDS ORDERED: ENOXAPARIN 100 MG/ML SYRINGE SUBCUT STA (09:51)
[2017-07-12] MEDS ORDERED: METOPROLOL TARTRATE 5 MG/5 ML VIAL IV STA (09:51)
--- NOTE | 2017-07-12 09:55 | EKG Report ---
Stationary ECG Study [facility] ER Test Date: 07/12/2017 9:51:19 AM Pat Name: EKAETRINA MCCRAY Department: Room: Gender: M Tie Binder: : 1955 Requested by: Clint Herrera Order Number: [id number] Reading MD: LIZETH SMITH Intervals Allen Rate: 100 P: 38 VT: 152 QRS: 38 QRSD: 81 T: 66 QT: 347 QTc: 404 Interpretive Statements SINUS TACHYCARDIA MINIMAL ST DEPRESSION Electronically Signed On 07-12-17 21:23:36 CDT by LIZETH SMITH [email or web address]
[2017-07-12] MEDS ORDERED: MORPHINE 2 MG/1 ML SYRINGE IV PRN (10:01)
[2017-07-12] MEDS ORDERED: BISACODYL 5 MG TABLET PO PRN (10:01)
[2017-07-12] MEDS ORDERED: MAGNESIUM SULF RIDER 2 GM in PREMIX 1 EACH IV PRN (10:01)
[2017-07-12] MEDS ORDERED: ONDANSETRON 4 MG/2 ML VIAL IV PRN (10:01)
[2017-07-12] MEDS ORDERED: ZALEPLON 5 MG CAPSULE PO PRN (10:01)
[2017-07-12] MEDS ORDERED: MAGNESIUM SULF RIDER 4 GM in PREMIX 1 EACH IV PRN (10:01)
[2017-07-12] MEDS ORDERED: POTASSIUM CHLORIDE 20 MEQ TABLET PO PRN (10:01)
[2017-07-12] MEDS ORDERED: METOPROLOL TARTRATE 5 MG/5 ML VIAL IV ONE (10:04)
[2017-07-12] MEDS ORDERED: ENOXAPARIN 120 MG/0.8 ML SYRINGE SUBCUT ONE (10:04)
[2017-07-12] MEDS ORDERED: ASPIRIN 325 MG TABLET ONE (10:04)
--- NOTE | 2017-07-12 10:05 | Emergency Department Note ---
Johan Arnold Manpreet, am scribing for, and in the presence of, Clint Fleming MD 10: 02. Bernadette Arnold James D, MD, personally performed the services described in this documentation, ascribed by Vinay Prado in my presence, and it is both accurate and complete . Arrival - Arrival Chief Complaint: Chest Pain Stated Complaint: chest pains ED Nursing Triage Note: PT C/O SOB AND CHEST PAIN SINCE HAVING 2 STENTS PLACED LAST WEDNESDAY. PT TOLD TO COME IN AND REMAIN NPO PER SEVERO JACOME Mode of Arrival: Wheelchair Limitations: No Limitations Source: Patient - History of Present Illness HPI Narrative: Pt is a 62 y/o male who presents to the ED with CC of SOB and CP. Pt had a cardiac stents palced on 07/05/[address] Juarez. Pt has not gotten better since. Pt also c/o melena that began two days ago. Pt states the pain is similar to the pain prior to his stents. Pt also states the pain worsens upon movement. No other pains/complaints reported to the ED. Onset (ago): week(s) Consistency: constant Severity: moderate Allergies/Adverse Reactions: Allergies Allergy/AdvReac Type Severity Reaction Status Date / Time No Known Allergies Allergy Verified 07/12/17 09:50 Home Medications: Home Medications Medication Instructions Recorded Confirmed Type Amlodipine Besylate 5 mg PO DAILY 05/01/15 07/03/17 History Atorvastatin [Lipitor] 10 mg PO DAILY 05/01/15 07/03/17 History Gabapentin 600 mg PO BID 05/01/15 07/03/17 History Gemfibrozil 600 mg PO BID 05/01/15 07/03/17 History Insulin Aspart Prot/Asp 70/30 100 unit SUBCUT BID 05/01/15 07/03/17 History [NovoLOG Mix 70/30] Omeprazole 20 mg PO DAILY 05/01/15 07/03/17 History Quinapril [Accupril] 10 mg PO DAILY 05/01/15 07/03/17 History Sertraline [Zoloft] 100 mg PO DAILY 05/01/15 07/03/17 History metFORMIN [Glucophage] 500 mg PO BID W/MEALS 05/01/15 07/03/17 History Aspirin Chew Tab 81 mg PO DAILY tablet 08/07/15 07/03/17 Rx Carvedilol [Coreg] 6.25 mg PO BID #60 tablet 08/07/15 07/03/17 Rx Cilostazol [Pletal] 50 mg PO BID #60 tablet 08/07/15 07/03/17 Rx Furosemide Tab [Lasix Tab] 20 mg PO DAILY #30 tablet 08/07/15 07/03/17 Rx Nitroglycerin Sl Tab [Nitrostat] 0.4 mg SL Q5M PRN #25 tablet 08/07/15 07/03/17 Rx Clopidogrel [Plavix] 75 mg PO DAILY #30 tablet 08/01/16 07/03/17 Rx Insulin Degludec [Tresiba 34 units SUBCUT BEDTIME 07/03/17 07/03/17 History Flextouch U-100] Ranitidine Tab [Zantac Tab] 1 tablet PO DAILY 07/03/17 07/03/17 History Review of System - Review of System 12 point system: reviewed and no additional remarkable complaints except as stated - Review of System Constitutional: Absent: chills, diaphoresis, fever Respiratory: Present: respiratory distress. Absent: cough, wheezing Cardiovascular: Present: chest pain. Absent: dyspnea on exertion Gastrointestinal: Absent: abdominal pain, nausea, vomiting, diarrhea Genitourinary male: Absent: dysuria Musculoskeletal: Absent: back pain, neck pain Neurological: Absent: headache, weakness, numbness, paresthesias Medical,Surgical,& Family Hx - Medical History Cardio: History of: Hypertension Psychological: History of: Anxiety Disorders Neurology: No history of: Seizures HEENT: History of: Eye Problem (cherelle cataract) Endocrine: History of: Diabetes Mellitus (IDDM) (novolog sq), Diabetes Mellitus (NIDDM), Dyslipidemia Respiratory: History of: Obstructive Sleep Apnea (uses CPAP) Gastrointestinal: History of: GERD, GI Problems Musculoskeletal: History of: Back/Neck Problems - Surgical History Cardiac Surgeries: Sugical HX of: Cardiac Catheterization (2015,2016 Stents x2) , Carotid Endarterectomy HEENT Surgeries: Surgical HX of: Carotid Endarterectomy, Eye Surgery (CATARACT LT FOR RT 05/21/15) Patient denies: Tonsilectomy & Adenoidectomy Abdominal Surgeries: Surgical HX of: Abdominal Surgery (TO REPLACE NAV[employer]) Orthopedic Surgeries: Surgical HX of;: Spinal Surgery (2 CERVICAL DISC REMOVED) - Family History Family History: Reports;: Family Hypertension (father), Family Stroke (father) - Social History Smoking Status: Former smoker Frequency of Alcohol Use: None Type of Drug Use: None Exam Vital Signs: Vital Signs Temperature 98.2 F 07/12/17 09:57 Pulse Rate 106 H 07/12/17 09:57 Respiratory Rate 20 07/12/17 09:57 Blood Pressure 164/72 07/12/17 09:57 O2 Sat by Pulse Oximetry 100 07/12/17 09:48 GENERAL: This is a well-nourished well-developed white male in no apparent distress. VITAL SIGNS: Reviewed HEENT: Head is atraumatic and normocephalic. Pupils are equal round react to light. Extraocular movements are intact. Oropharynx is benign with moist mucous membranes. NECK: Neck is soft and supple without tenderness. There are no masses. There is no lymphadenopathy. LUNGS: Lungs are clear to auscultation. Chest rises symmetrically. There is no chest wall tenderness. CV: Heart is regular rate and rhythm without murmurs rubs or gallops. ABDOMEN: Abdomen is soft, nontender to palpation. There are no abdominal abnormal masses palpated. There is no organomegaly. Bowel sounds are present and active. SKIN: Skin is warm and dry. No rash. EXTREMITIES: Patient has full range of motion without tenderness. There is no pedal edema. NEUROLOGIC: Awake alert and oriented 4. Cranial nerves II through XII are grossly intact. Motor is 5 over 5 in all extremities bilaterally. Course Course Narrative: Patient was given Lovenox and aspirin in the emergency department along with Lopressor 5 mg IV. - Consultations Consultation #1: Discussed with Dr. Mena. Patient will be taken to the [facility] for diagnostic left heart cath and possible PCI. Time: 10:04 Results - Labs CBC & BMP: 07/12/17 09:52 Lab Results: I have reviewed the patients labs - EKG EKG results: interpreted by ERMD - Impressions EKG: Sinus tachycardia with a rate of 100, ST segment depression laterally consistent with myocardial ischemia. Normal axis. - Diagnostic Findings Procedure: Chest x-ray: image reviewed by me (No infiltrates, no pleural effusions.) Critical Care Time Critical Care Time: No Disposition Clinical Impression: Unstable angina, Diabetes mellitus, Essential hypertension, Anemia Case discussed with: patient, patient's family Disposition: Still a Patient Condition: Guarded Time of Disposition: 10:27
--- NOTE | 2017-07-12 10:15 | XRay Report ---
XR chest 1V portable Indication: Chest pain Comparison: None available Findings: The heart and mediastinum are normal in size and configuration. The pulmonary vascularity is normal in caliber. No lung infiltrates, effusions, pneumothorax or other abnormality is demonstrated. Impression: Normal chest x-ray PROCEDURE INTERPRETED AT [facility] DEPARTMENT OF RADIOLOGY Final Report Signed by: Dr. Alvin Diamond
[2017-07-12] MEDS ORDERED: DIAZEPAM 5 MG TABLET PO STA (10:18)
[2017-07-12] MEDS ORDERED: diphenhydrAMINE CAP 50 MG CAPSULE PO STA (10:18)
--- NOTE | 2017-07-12 10:20 | Cardiology History & Physical ---
Assessment and Plan - Time spent with patient Time spent with patient: Greater than 30 minutes (1) Morbid obesity Status: Chronic Assessment and plan: SEE PLAN OF CARE LISTED BELOW (2) Anemia Status: Chronic Assessment and plan: SEE PLAN OF CARE LISTED BELOW (3) Diabetes mellitus Status: Chronic Assessment and plan: SEE PLAN OF CARE LISTED BELOW (4) Essential hypertension Status: Chronic Assessment and plan: SEE PLAN OF CARE LISTED BELOW (5) Chest pain Status: Acute Assessment and plan: SEE PLAN OF CARE LISTED BELOW (6) Obstructive sleep apnea Status: Chronic Assessment and plan: SEE PLAN OF CARE LISTED BELOW (7) Coronary artery disease Status: Chronic Assessment and plan: SEE PLAN OF CARE LISTED BELOW Qualifiers: Coronary Disease-Associated Artery/Lesion type: [place] artery [place] vs. transplanted heart: [place] heart (8) Dyslipidemia Status: Chronic Assessment and plan: SEE PLAN OF CARE LISTED BELOW History of Present Illness Chief complaint: chest pain, SOB History of present illness: [employer] E[employer]ORCEMENT OFFICER: DR. MENA PCP: DR. SHERYL CLEMONS Patient is being seen in the emergency department. Mr. Mota, 62WM, with risk factors significant for: Known CAD (S/P PCI mid-RCA with JANET, PCI mid-LAD with JANET July 05, 2017), hypertension, dyslipidemia, diabetes, obesity, sedentary lifestyle. Patient underwent stenting (listed above) for chest pain and shortness of breath. Approximately 4 hours post PCI, patient developed chest pain, shortness of breath, nausea and diaphoresis. He was encouraged to return to the cardiac catheterization lab but he declined. Patient was discharged home and continue to have chest pain, shortness of breath with exertion and now at rest. This is been intermittent but worsened over the weekend. Rates the discomfort as a 7 on a scale of 1-10, currently chest pain-free. Is located in the center of his chest with mild radiation to the right. Described as squeezing sensation accompanied by shortness of breath and diaphoresis. Occasionally, it does radiate down the left shoulder and left arm when it is at its worst. EKG does reveal new lateral ST depression in inferior leads. Labs are pending. Patient has taken his aspirin and Plavix. (He has had a problem taking Brilinta in the past but cannot remember the actual problem). Coreg has recently caused him to feel extremely fatigued and therefore he has been taking "half the dose". Of note, during the prior hospital stay patient was found to be anemic. At discharge from last hospitalization hemoglobin and hematocrit of of 8.3 and 23.9 noted. On admission 9.4 and 26.6 on admission. Today's labs include: Hemoglobin and hematocrit of 8.5 and 24.4 respectively. In the past, he has had an upper and lower GI evaluation. He believes this occurred in the past 1- 2 years at the [facility] (received favorable results). He does report this morning he had a black and tarry stool. No vomiting of blood or bright red bleeding from the rectum. Denies history of known cancer. Patient is NPO and has not eaten since last evening. Will further discuss with Dr. Mena and await additional recommendations. IMPRESSION/PLAN: 1. CHEST PAIN - concerning for angina. He has not had food since prior to midnight. Dr. Mena will see patient, may require cardiac catheterization to rule out stent thrombosis, and new occlusion/stenosis. May consider CTA of chest to rule out PE if heart catheterization does not reveal etiology of significant chest pain/shortness of breath. Patient is significantly anemic. This seems to be stable since last hospitalization 1 week ago. He did have black and tarry stools this morning and this will be addressed prior to discharge. However, given the patient's significant, recurrent complaints concerning for angina, may require cardiac catheterization to rule out ACS 2. KNOWN CAD - recent cardiac catheterization requiring PCI to mid LAD, PCI to RCA. Compliant with medications. 3. HYPERTENSION - usually well controlled. Reports some adverse reactions with Coreg and will adjust accordingly prior to discharge peer 4. DYSLIPIDEMIA -LDL 46. Continue lipid-lowering agent. 5. DIABETES - sliding scale insulin during hospital stay. Adjust accordingly while hospitalized 6. ANEMIA - stool for occult blood. Anemia profile. Did have a black and tarry stool this morning. Hopefully, we can rule out ACS with cath and proceed with further GI workup as needed. 7. MORBID OBESITY - dietary counseling prior to discharge 8. FELIPA - compliant with sleep device. Will verify he will be using device during hospital stay. Will verify he is up-to-date with follow-up with his sleep medicine physician as well. Home Medications Medication Instructions Recorded Confirmed Type Amlodipine Besylate 5 mg PO DAILY 05/01/15 07/03/17 History Atorvastatin [Lipitor] 10 mg PO DAILY 05/01/15 07/03/17 History Gabapentin 600 mg PO BID 05/01/15 07/03/17 History Gemfibrozil 600 mg PO BID 05/01/15 07/03/17 History Insulin Aspart Prot/Asp 70/30 100 unit SUBCUT BID 05/01/15 07/03/17 History [NovoLOG Mix 70/30] Omeprazole 20 mg PO DAILY 05/01/15 07/03/17 History Quinapril [Accupril] 10 mg PO DAILY 05/01/15 07/03/17 History Sertraline [Zoloft] 100 mg PO DAILY 05/01/15 07/03/17 History metFORMIN [Glucophage] 500 mg PO BID W/MEALS 05/01/15 07/03/17 History Aspirin Chew Tab 81 mg PO DAILY tablet 08/07/15 07/03/17 Rx Carvedilol [Coreg] 6.25 mg PO BID #60 tablet 08/07/15 07/03/17 Rx Cilostazol [Pletal] 50 mg PO BID #60 tablet 08/07/15 07/03/17 Rx Furosemide Tab [Lasix Tab] 20 mg PO DAILY #30 tablet 08/07/15 07/03/17 Rx Nitroglycerin Sl Tab [Nitrostat] 0.4 mg SL Q5M PRN #25 tablet 08/07/15 07/03/17 Rx Clopidogrel [Plavix] 75 mg PO DAILY #30 tablet 08/01/16 07/03/17 Rx Insulin Degludec [Tresiba 34 units SUBCUT BEDTIME 07/03/17 07/03/17 History Flextouch U-100] Ranitidine Tab [Zantac Tab] 1 tablet PO DAILY 07/03/17 07/03/17 History Allergies Allergy/AdvReac Type Severity Reaction Status Date / Time No Known Allergies Allergy Verified 07/12/17 09:50 Review of systems: REVIEW OF SYSTEMS: - Constitutional Constitutional: Present: Fatigue. Absent: syncope, anorexia, night sweats - EENT Eyes: Absent: blurry vision, loss of vision, diplopia Ears: Present: Chronic decreased hearing and usually wears hearing aids but does not have them with him today. Denies ear pain, ear discharge - Cardiovascular Cardiovascular: Present: chest pain with exertion, chest pain at rest. Dyspnea on exertion. Denies recent edema, palpitations. Absent: chest pain with deep breath, claudication - Respiratory Respiratory: Present: ALVAREZ, denies cough. Absent: wheezing, hemoptysis, change in phlegm color - Gastrointestinal Gastrointestinal: Denies: constipation. Mild epigastric abdominal pain to palpation today. Reports black and tarry stool this morning. Absent: abdominal pain, hematemesis, hematochezia. - Genitourinary Genitourinary: Absent: difficulty urinating, dysuria, urinary hesitancy, flank pain - Musculoskeletal Musculoskeletal: Present: back pain Absent: joint swelling, muscle cramps, muscle weakness - Neurological Neurological: Present: normal gait without frequent falls. Absent: dizziness, hemiparesis - Psychiatric Psychiatric: Absent: anxiety, depression, difficulty concentrating - Endocrine Endocrine: Present: fatigue. Absent: cold intolerance, heat intolerance, polyuria, polyphagia, polydipsia - Hematologic/Lymphatic Hematologic/Lymphatic: Present: easy bruising. Absent: easy bleeding -Integumentary Integumentary: Absent: lesions, rashes, skin breakdown Medical,Surgical,& Family Hx - Medical History Cardio: History of: CAD, Hypertension No history of: CHF, [place] Psychological: History of: Anxiety Disorders Neurology: No history of: Seizures HEENT: History of: Eye Problem (cherelle cataract) Endocrine: History of: Diabetes Mellitus (IDDM) (novolog sq), Diabetes Mellitus (NIDDM), Dyslipidemia Respiratory: History of: Obstructive Sleep Apnea (uses CPAP) Gastrointestinal: History of: GERD, GI Problems Musculoskeletal: History of: Back/Neck Problems Hematology: History of: Anemia - Surgical History Cardiac Surgeries: Sugical HX of: Cardiac Catheterization (2014,2016 Stents x2) , Carotid Endarterectomy HEENT Surgeries: Surgical HX of: Carotid Endarterectomy, Eye Surgery (CATARACT LT FOR RT 05/21/15) Patient denies: Tonsilectomy & Adenoidectomy Abdominal Surgeries: Surgical HX of: Abdominal Surgery (TO REPLACE NAVAL) Orthopedic Surgeries: Surgical HX of;: Spinal Surgery (2 CERVICAL DISC REMOVED) - Family History Family History: Reports;: Family Hypertension (father), Family Stroke (father) - Social History Smoking Status: Former smoker Have you smoked in the last 12 months: No Frequency of Alcohol Use: None Type of Drug Use: None Marital Status: Lives With:: Children Functional capacity: independent ambulation Cardiology Physical Exam - Constitutional Vitals: Vital Signs Temp Pulse Resp BP Pulse Ox 98.2 F 106 H 20 164/72 100 07/12/17 09:57 07/12/17 09:57 07/12/17 09:57 07/12/17 09:57 07/12/17 09:48 Intake and Output 07/11/17 07/12/17 07/12/17 23:59 07:59 15:59 Other: Weight 115.666 kg Patient Weight 07/12/17 23:59 Weight 115.666 kg Exam: General: [Appears well with no apparent distress.] [Pleasant and cooperative. ] [Appears comfortable.] HEENT: [PERRL, normocephalic, atraumatic. Mucous membranes moist. No jaundice noted. Conjunctiva moist and clear, sclerae anicteric] Neck: Unable to assess for JVD due to habitus. No thyromegaly or lymphadenopathy noted. No carotid bruit appreciated Cardiac: [Regular rate and rhythm.] [No obvious murmur, rub or gallop.] Lungs: [Clear to auscultation without accessory muscle use to assist the respiratory pattern.] Oxygen in use via nasal cannula Abdomen: Round, protuberant. Soft, bowel sounds normoactive. Slight tenderness noted in the mid epigastric area. No abdominal bruit or thrill noted. No masses noted. Musculoskeletal: No fluid collection. Decreased range of motion is noted. Extremities: No clubbing, cyanosis noted. [ No edema noted.] Upper extremity pulses 2+. Lower extremity pulses 2+. Capillary refill less than 3 seconds. Skin: No unusual lesions or rashes. No skin breakdown appreciated. Neuro: Awake, alert and oriented 3. Moves all extremities well without hemiparesis or paralysis. No essential tremor is appreciated. Result/EKG - Labs CBC & BMP: 07/12/17 09:52 Lab Results: I have reviewed the past 24 hour labs - Diagnostic Findings Procedure: Chest x-ray: pending - EKG EKG results: interpreted by me EKG shows: sinus rhythm
[2017-07-12] MEDS ORDERED: diphenhydrAMINE CAP 50 MG CAPSULE ONE (10:21)
[2017-07-12] MEDS ORDERED: DIAZEPAM 5 MG TABLET ONE (10:21)
[2017-07-12] MEDS ORDERED: LIDOCAINE 1% 20 ML VIAL ONE (10:22)
[2017-07-12 10:26] LABS: Basophils # 0.1 10*3/uL (0.0-0.2); Basophils % 0.7 % (0.0-0.8); Eosinophils # 0.2 10*3/uL (0.0-0.87); Eosinophils % 2.4 % (0.00-10.9); Hematocrit 24.4 VOL% (42.0-52.0); Hemoglobin 8.5 GM/DL (14.0-18.0); Immature Granulocytes % 4.3 %; Immature Granulocytes Absolute 0.32 #; Lymphocytes # 1.3 10*3/uL (1.4-4.0); Lymphocytes % 17.3 % (21.2-54.2); Mean Corpuscular HGB Conc 34.8 GM/DL (32-36); Mean Corpuscular Hemoglobin 31 PG (27-34); Mean Platelet Volume 11.7 FL (9.6-12.0); Monocytes # 0.5 10*3/uL (0.11-0.8); Monocytes % 7.2 % (1.7-12.7); NRBC # 0.17 10*3/uL; Neutrophils # 5.1 10*3/uL (1.4-7.4); Neutrophils % 68.1 % (38.7-73.9); Platelet Count 124 T/CUMM (130-400); Red Blood Count 2.71 MC/CUMM (3.8-5.5); Red Cell Distribution Width 21.8 % (9.3-17.3); White Blood Count 7.5 T/CUMM (4-12)
[2017-07-12] MEDS ORDERED: MEPERIDINE 25 MG/1 ML VIAL ONE (10:35)
[2017-07-12] MEDS ORDERED: MIDAZOLAM 2 MG/2 ML VIAL ONE (10:35)
--- NOTE | 2017-07-12 10:36 | History and Physical Update ---
Sedation H&P Update - History and Physical H&P was reviewed, the patient examined and there: are no changes in the patients condition since last H&P was completed. - Dictation Physical: refer to H&P completed by admitting physician - Physical Exam Mental Status: alert and oriented Heart: regular rate and rhythm Lung: clear to auscultation Abdomen: within normal limits Vitals: within normal limits - Sedation Plan for Sedation: minimal Patient Consent: Procedure disscussed with patient and patinet has consented., Risks and benefits were discussed with patient,including infection,, bleeding, injury to surrounding structures, seizure, temporary nerve, Patient understands and accepts potential risks/benefits and agrees to, proceed. (Left heart cath and possible PTCA or stent were discussed with the patient. The risk of the procedure include but are not limited to a small risk of injury to the vessel, abnormal heart rhythm, stroke, heart attack, need for emergent surgery, contrast reaction, restenosis, infection, or . The patient voices understanding, agrees with the plan, and desires to proceed with the heart catheterization.) ASA Class: II Airway Assessment: Class III: Soft palate, base of uvula visible
[2017-07-12 10:45] LABS: PT Patient Result 10.6 SECS; Partial Thromboplastin Time 25.4 SECS (0-40)
[2017-07-12 11:19] LABS: Albumin 4.1 G/DL (3.4-5.0); Osmolality,Calculated 286.7 MOS/KG (273-304); Potassium 4.2 MMOL/L (3.5-5.1); Total Protein 7.4 G/DL (6.4-8.3)
--- NOTE | 2017-07-12 11:29 | Operative Note ---
Date of procedure: 07/12/17 Procedure Preformed: Left heart cath Coronary angiography Left ventriculography Angiogram of the right femoral artery Angio-Seal of the right femoral artery-successful Surgeon / Physician: Toni Mena Coil Inspector: Malgorzata Vera Post-op diagnosis: same (Patient had a stent placed in mid LAD in the mid right coronary about a week ago from radial approach. A few hours later he had severe chest pain but no EKG changes. He almost was brought back to the Distribution Superintendent. However, it was decided to watch him. Enzymes were negative. It was thought it might be hiatal hernia or esophageal pain. Was sent home. Over the weekend is had worsening chest pain with minimal activity. Is also with severe dyspnea. This is just like he had prior stents. He is referred for diagnostic catheterization and possible intervention.) Findings: Impression: No significant coronary disease Widely patent recently placed stents in the midline LAD and the in the mid right coronary There are 2 other areas, one in the circumflex, one in the proximal right coronary where there was a 40% to at most 50% narrowing. No critical coronary disease Normal global/regional left ventricular systolic function, LVEF greater than 55% Moderate elevation of LVEDP, 30 mmHg Angiogram of the right femoral artery-via follow-through from the LV gram Angio-Seal of the right femoral artery-successful Plan/recommendations: Based on the study, the patient's chest pain with minimal activity is not due to fixed, obstructive coronary disease. I suppose it is possible that it is a combination of the moderate CAD, high LVEDP, and hematocrit about 24.5%. Also there could be a GI/esophageal cause for the pain , such as esophageal reflux or esophageal spasm. The plan at this point would be to give him 2 units of packed red blood cells and try to his hematocrit above 30. Also, start on hyoscyamine to lessen the chance of esophageal spasm. I will consult Dr. Alan Schmidt for his assessment of GI cause of the pain. I will check stool guaiacs. He has had black stools, but he has been taking Pepto-Bismol, many, over the weekend before the black stool started. I will get cardiac isoenzymes, just to ensure we are not dealing with some coronary spasm with an ischemic event. I will treat his high LVEDP by either adjusting his spironolactone or Lasix or other medications. The patient will have risk factors optimized. The patient will be on antiplatelet medications to include aspirin indefinitely and Plavix or Brilinta for at least a year. Follow-up will be scheduled. Addenda: I saw the patient post-cath. the groin puncture site and distal pulse are stable. vital signs are stable and the patient will be observed closely overnight. Specimens: none sent Estimated blood loss: minimal Condition: stable Anesthesia: local, conscious sedation Disposition: floor
--- NOTE | 2017-07-12 11:40 | Cardiology Operative Report ---
Date of Procedure:: 07/12/17 Post-op diagnosis: same (Patient had a stent placed in mid LAD in the mid right coronary about a week ago from radial approach. A few hours later he had severe chest pain but no EKG changes. He almost was brought back to the Traveling Phlebotomist. However, it was decided to watch him. Enzymes were negative. It was thought it might be hiatal hernia or esophageal pain. Was sent home. Over the weekend is had worsening chest pain with minimal activity. Is also with severe dyspnea. This is just like he had prior stents. He is referred for diagnostic catheterization and possible intervention.) Procedure: Date of procedure: 07/12/17 Procedure Preformed: Left heart cath Coronary angiography Left ventriculography Angiogram of the right femoral artery Angio-Seal of the right femoral artery-successful Surgeon / Physician: Toni Mena Metal Casket Assembler: Malgorzata Vera Post-op diagnosis: same (Patient had a stent placed in mid LAD in the mid right coronary about a week ago from radial approach. A few hours later he had severe chest pain but no EKG changes. He almost was brought back to the Traveling Phlebotomist. However, it was decided to watch him. Enzymes were negative. It was thought it might be hiatal hernia or esophageal pain. Was sent home. Over the weekend is had worsening chest pain with minimal activity. Is also with severe dyspnea. This is just like he had prior stents. He is referred for diagnostic catheterization and possible intervention.) procedure: The patient was prepped and draped in usual manner. Entered the right femoral artery via the Seldinger technique. I used a sheath and then used a JL4 and engaged left coronary. Multiple views were taken. I then exchanged for a JR4. Multiple views of the right coronary were taken. I then exchanged for an angled pigtail. I crossed the valve. Left ventricular end-diastolic pressures measured. Left ventriculography was done. Left ventricle pullback was done. The catheters were then removed from the patient. Angiogram of the right femoral artery was done either from the follow-through from the LV gram or a separate injection in the right femoral artery. Angio-Seal was done and it was successful. Please see the cath data sheets for the details of catheters used. Complications: None Hemodynamic data: LVEDP was 30 mmHg. Angiographic data: The left main coronary was large and had minimal luminal irregularities. The left anterior descending artery was small vessel and had mild to moderate disease within it. At that side of the stent was widely patent. No critical, obstructive disease is seen The left circumflex system was moderate size. There is obtuse marginal post lateral branch. Proximal circumflex had a 40 to at most 50% narrowing. At the takeoff the posterior lateral there was a 40 to at most 50% narrowing. Multiple views were taken. If not critical narrowing. The right coronary artery was small to moderate in size, dominant vessel with the PDA. In the mid vessel, where there is a stent, there was a -10% residual. The proximal right coronary had may be a 40% narrowing. Multiple views were taken at this lesion and it was deemed to be noncritically narrowing. CARROLL left ventriculography revealed normal global/regional left ventricular systolic function. Overall ejection fraction was at least 55%. There is no significant mitral regurgitation. Angiogram of the right femoral artery revealed the puncture site to be in a large vessel, above the bifurcation. It was suitable for Angio-Seal. Impression: No significant coronary disease Widely patent recently placed stents in the midline LAD and the in the mid right coronary There are 2 other areas, one in the circumflex, one in the proximal right coronary where there was a 40% to at most 50% narrowing. No critical coronary disease Normal global/regional left ventricular systolic function, LVEF greater than 55% Moderate elevation of LVEDP, 30 mmHg Angiogram of the right femoral artery-via follow-through from the LV gram Angio-Seal of the right femoral artery-successful Plan/recommendations: Based on the study, the patient's chest pain with minimal activity is not due to fixed, obstructive coronary disease. I suppose it is possible that it is a combination of the moderate CAD, high LVEDP, and hematocrit about 24.5%. Also there could be a GI/esophageal cause for the pain , such as esophageal reflux or esophageal spasm. The plan at this point would be to give him 2 units of packed red blood cells and try to his hematocrit above 30. Also, start on hyoscyamine to lessen the chance of esophageal spasm. I will consult Dr. Alan Schmidt for his assessment of GI cause of the pain. I will check stool guaiacs. He has had black stools, but he has been taking Pepto-Bismol, many, over the weekend before the black stool started. I will get cardiac isoenzymes, just to ensure we are not dealing with some coronary spasm with an ischemic event. I will treat his high LVEDP by either adjusting his spironolactone or Lasix or other medications. The patient will have risk factors optimized. The patient will be on antiplatelet medications to include aspirin indefinitely and Plavix or Brilinta for at least a year. Follow-up will be scheduled. Addenda: I saw the patient post-cath. the groin puncture site and distal pulse are stable. vital signs are stable and the patient will be observed closely overnight. Specimens: none sent Estimated blood loss: minimal Condition: stable Anesthesia: local, conscious sedation Disposition: floor Additional CC's: Marvel Cerrato Surgeon / Physician: Toni Mena Estimated blood loss: minimal Specimens: none sent Condition: stable
[2017-07-12] MEDS ORDERED: FUROSEMIDE 20 MG/2 ML VIAL IV ONE (11:46)
--- NOTE | 2017-07-12 11:56 | EKG Report ---
Stationary ECG Study [facility] Test Date: 07/12/2017 11:55:30 AM Pat Name: EKATERINA MCCRAY Department: Room: 277 Gender: M Sap Senior Developer: PAVEL : 1955 Requested by: Toni Mena Order Number: [id number] Reading MD: LIZETH SMITH Intervals [place] Rate: 68 P: 45 IA: 140 QRS: 32 QRSD: 79 T: -19 QT: 408 QTc: 425 Interpretive Statements SINUS RHYTHM Electronically Signed On 07-12-17 21:28:50 CDT by LIZETH SMITH [email or web address]
[2017-07-12 11:58] LABS: Basophils # 0.1 10*3/uL (0.0-0.2); Basophils % 0.7 % (0.0-0.8); Eosinophils # 0.2 10*3/uL (0.0-0.87); Eosinophils % 2.4 % (0.00-10.9); Hematocrit 24.1 VOL% (42.0-52.0); Hemoglobin 8.4 GM/DL (14.0-18.0); Immature Granulocytes % 4.9 %; Immature Granulocytes Absolute 0.35 #; Lymphocytes # 1.3 10*3/uL (1.4-4.0); Lymphocytes % 17.8 % (21.2-54.2); Mean Corpuscular HGB Conc 34.9 GM/DL (32-36); Mean Corpuscular Hemoglobin 32 PG (27-34); Mean Corpuscular Volume 91.6 FL (87-102); Mean Platelet Volume 11.8 FL (9.6-12.0); Monocytes # 0.4 10*3/uL (0.11-0.8); NRBC # 0.19 10*3/uL; Neutrophils # 4.9 10*3/uL (1.4-7.4); Neutrophils % 68.2 % (38.7-73.9); Platelet Count 127 T/CUMM (130-400); Red Blood Count 2.63 MC/CUMM (3.8-5.5); Red Cell Distribution Width 21.9 % (9.3-17.3); White Blood Count 7.2 T/CUMM (4-12)
[2017-07-12] MEDS ORDERED: SODIUM CHLORIDE 0.9% 1,000 ML IV SCH (12:00)
[2017-07-12] MEDS ORDERED: SODIUM CHLORIDE 0.9% 250 ML IV PRN (12:08)
[2017-07-12 13:02] LABS: Sedimentation Rate-Westergren 100 MM/HR (0-20)
[2017-07-12] MEDS: PANTOPRAZOLE 40 MG TABLET PO SCH (13:04)
[2017-07-12] MEDS: SPIRONOLACTONE 25 MG TABLET PO SCH (13:05)
[2017-07-12] MEDS: CARVEDILOL 6.25 MG TABLET PO SCH ×2 (13:05→20:47)
[2017-07-12] MEDS: QUINAPRIL 5 MG TABLET PO SCH (13:05)
[2017-07-12 14:05] LABS: Troponin I Only 0.202 NG/ML (0.00-0.045)
--- NOTE | 2017-07-12 14:07 | Gastrointestinal Consult Note ---
Assessment and Plan (1) Atypical chest pain Status: Acute Assessment and plan: 07/12-several day history of chest pain with associated shortness of breath with recent heart catheterization and stenting 2. Recatheterization done today with no new findings. On Plavix therapy. Prior endoscopy done at endoscopic clinic. Also findings of anemia with H&H 06/23. To be transfused 2 units packed red blood cells. Stools pending for occult blood. Obtained prior endoscopy results from endoscopic clinic. Plan for tentative diagnostic EGD tomorrow to further evaluate. Plan an addendum to followed by Dr. Daniels. Current Visit: Yes History of Present Illness Chief complaint: Atypical chest pain History of present illness: Mr. Mota is a 62 year old male who was admitted to the hospital today with complaints of chest pain shortness of breath. Patient states that several days ago he had an onset of chest pain that radiated across his chest with associated shortness of breath. He presented to the emergency room at that time underwent cardiac catheterization and had stents placed 2. Upon discharge home, patient states he continued to have some mild shortness of breath and some mild chest pain as well however he did not return to the hospital for further evaluation. Patient states 2 or 3 days ago he noticed that his stools have become increasingly dark and his chest pain was not improving. He recalls over the last month he has had increase in dyspepsia with a dull aching epigastric pain at times. He has a history of GERD which is usually controlled with Prilosec and states he takes Zantac at night as well. He denies any dysphagia. He denies any recent weight loss. He does state that he has document Pepto-Bismol daily over the last several days due to symptoms. He also states that he does take Aleve at 2-3 a day several times a week. He has had prior endoscopy done at endoscopic clinic however cannot recall the findings of these other than they were "okay". He is on Plavix therapy daily as well as Pletal and takes an aspirin daily. He states the pain that he has had this felt very similar to the pain he had prior to his heart catheterization. He had a repeat heart cath today which showed no new findings. He was also noted on admission to be anemic with an H&H of 06/23. BUN /creatinine ratio elevated at 21. He can recall remote history of anemia in the past however does not recall having had blood transfusions for this before. He is to receive 2 units of packed red blood cells today Home Medications Medication Instructions Recorded Confirmed Type Amlodipine Besylate 5 mg PO DAILY 05/01/15 07/12/17 History Atorvastatin [Lipitor] 10 mg PO DAILY 05/01/15 07/12/17 History Gabapentin 600 mg PO BID 05/01/15 07/12/17 History Gemfibrozil 600 mg PO BID 05/01/15 07/12/17 History Insulin Aspart Prot/Asp 70/30 90 unit SUBCUT BID 05/01/15 07/12/17 History [NovoLOG Mix 70/30] Omeprazole 20 mg PO DAILY 05/01/15 07/12/17 History Quinapril [Accupril] 10 mg PO DAILY 05/01/15 07/12/17 History Sertraline [Zoloft] 100 mg PO DAILY 05/01/15 07/12/17 History metFORMIN [Glucophage] 1,000 mg PO BID W/MEALS 05/01/15 07/12/17 History Aspirin Chew Tab 81 mg PO DAILY tablet 08/07/15 07/12/17 Rx Carvedilol [Coreg] 6.25 mg PO BID #60 tablet 08/07/15 07/12/17 Rx Cilostazol [Pletal] 50 mg PO BID #60 tablet 08/07/15 07/12/17 Rx Furosemide Tab [Lasix Tab] 20 mg PO DAILY #30 tablet 08/07/15 07/12/17 Rx Nitroglycerin Sl Tab [Nitrostat] 0.4 mg SL Q5M PRN #25 tablet 08/07/15 07/12/17 Rx Clopidogrel [Plavix] 75 mg PO DAILY #30 tablet 08/01/16 07/12/17 Rx Insulin Degludec [Tresiba 34 units SUBCUT BEDTIME 07/03/17 07/12/17 History Flextouch U-100] Ranitidine Tab [Zantac Tab] 1 tablet PO DAILY 07/03/17 07/12/17 History Allergies Allergy/AdvReac Type Severity Reaction Status Date / Time No Known Allergies Allergy Verified 07/12/17 09:50 Medical,Surgical,& Family Hx - Medical History Cardio: History of: CAD, Hypertension No history of: CHF, [place] Psychological: History of: Anxiety Disorders Neurology: No history of: Seizures HEENT: History of: Eye Problem (cherelle cataract) Endocrine: History of: Diabetes Mellitus (IDDM) (novolog sq), Diabetes Mellitus (NIDDM), Dyslipidemia Respiratory: History of: Obstructive Sleep Apnea (uses CPAP) Gastrointestinal: History of: GERD, GI Problems Musculoskeletal: History of: Back/Neck Problems Hematology: History of: Anemia - Surgical History Cardiac Surgeries: Sugical HX of: Cardiac Catheterization (2014,2016 Stents x2) , Carotid Endarterectomy HEENT Surgeries: Surgical HX of: Carotid Endarterectomy, Eye Surgery (CATARACT LT FOR RT 05/21/15) Patient denies: Tonsilectomy & Adenoidectomy Abdominal Surgeries: Surgical HX of: Abdominal Surgery (TO [employer]) Orthopedic Surgeries: Surgical HX of;: Spinal Surgery (2 CERVICAL DISC REMOVED) - Family History Family History: Reports;: Family Hypertension (father), Family Stroke (father) - Social History Smoking Status: Former smoker Frequency of Alcohol Use: None Type of Drug Use: None 12 point system: reviewed and no additional remarkable complaints except as stated - Constitutional Constitutional: Present: as per HPI - EENT Eyes: Present: as per HPI Ears: Present: as per HPI Nose, mouth and throat: Present: as per HPI - Cardiovascular Cardiovascular: Present: as per HPI, chest pain at rest, dyspnea - Respiratory Respiratory: Present: as per HPI - Gastrointestinal Gastrointestinal: Present: as per HPI, abdominal pain (Epigastric) - Genitourinary Genitourinary: Present: as per HPI - Musculoskeletal Musculoskeletal: Present: as per HPI - Neurological Neurological: Present: as per HPI - Psychiatric Psychiatric: Present: as per HPI - Endocrine Endocrine: Present: as per HPI - Hematologic/Lymphatic Hematologic/Lymphatic: Present: as per HPI Exam - Constitutional Vitals: Period Temp Pulse Resp BP Sys/Dunn Pulse Ox Last 24 Hr 98.1 F-98.2 F 71-106 18-20 110-164/63-73 98-100 General appearance: no acute distress, over weight - Head Head exam: Present: normal inspection, normocephalic - Eye Eye exam: Present: other (Lids and conjunctivae are unremarkable). Absent: scleral icterus - ENT ENT exam: Present: normal exam, normal oropharynx - Neck Neck exam: Present: normal inspection - Respiratory Respiratory exam: Present: clear to auscultation bilaterally. Absent: rales, rhonchi, wheezes - Cardiovascular Cardiovascular exam: Present: regular rate and rhythm. Absent: diastolic murmur , JVD, systolic murmur - GI/Abdominal GI/Abdominal exam: Present: normal bowel sounds, soft. Absent: ascites, distended, mass, organomegaly, tenderness - Extremities Exam Extremities exam: Present: normal inspection, full ROM - Back Exam Back exam: Present: normal inspection - Neurological Exam Neurological exam: Present: alert, oriented X3 - Psychiatric Psychiatric exam: Present: normal affect, normal mood - Skin Skin exam: Present: normal color, warm, dry Results - Labs CBC & BMP: 07/12/17 10:49 07/12/17 09:50 Lab Results: I have reviewed the past 24 hour labs Quality Measures - VTE Contraindication to Pharmacological VTE Prophylaxis: High Risk of Bleeding Specialty Discharge - Follow Up or Referrals
[2017-07-12 14:15] LABS: Folate 19.7 NG/ML (5.4-24.0); Vitamin B12 430 PG/ML (211-911)
[2017-07-12] MEDS: HYOSCYAMINE 0.125 MG TABLET PO SCH ×2 (14:34→20:48)
[2017-07-12] MEDS ORDERED: GLUCAGON 1 MG VIAL IM PRN (16:04)
[2017-07-12] MEDS ORDERED: DEXTROSE 50% 25 GM/50 ML SYRINGE IV PRN (16:04)
[2017-07-12] MEDS ORDERED: metFORMIN 500 MG TABLET PO SCH (17:00)
[2017-07-12] MEDS: INSULIN REGULAR 100 UNIT/ML SUBCUT SCH ×2 (17:31→20:47)
--- NOTE | 2017-07-12 17:31 | Sleep Medicine Consult ---
Assessment and Plan (1) Obstructive sleep apnea Status: Chronic Assessment and plan: This patient does have good control of his obstructive sleep apnea and is compliant with therapy. Prescription will be written for mask and supplies and follow-up will be scheduled in sleep clinic in October. Thank you for this consult and the opportunity to participate in his care. Current Visit: Yes (2) Diabetes mellitus Status: Chronic Assessment and plan: The prevalence rate for obstructive sleep apnea in patients with type 2 diabetes can be as high as 86%. Those patients with moderate to severe obstructive sleep apnea are at a greater risk for diabetic nephropathy and neuropathy. Compliance with CPAP therapy for these patients can lead to improvement in glycemic control and improvement in insulin sensitivity. Current Visit: Yes (3) Essential hypertension Status: Chronic Assessment and plan: The prevalence rate for obstructive sleep apnea patients with hypertension is 35 %. That rate can be as high as 80% in patients who require 4 or more medications for blood pressure control. Current Visit: Yes History of Present Illness Chief complaint: Sleep apnea History of present illness: Mr. Mota is a 62 year old male with a long history of obstructive sleep apnea. He was diagnosed in the early . He underwent his last sleep study on 08/24 and had a split study which revealed severe sleep apnea with an AHI of 118.6 with O2 desaturation to lows of 75%. He was titrated to 16 cm at that time. He has been on CPAP since and has been compliant with it by history. He brought his machine with him on this hospitalization. He has a 100% usage rate and a 96.7% compliance rate for over 4 hours. He currently is on 16 cm and has good control with an average AHI of 4. He did miss his last appointment in October 2016 due to travel commitments. 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 He was sent a letter reminding him of the need to return for follow-up but did not respond. He does need a prescription for supplies. I will take care of that today and we will set him up for follow-up in the sleep lab. Home Medications Medication Instructions Recorded Confirmed Type Amlodipine Besylate 5 mg PO DAILY 05/01/15 07/12/17 History Atorvastatin [Lipitor] 10 mg PO DAILY 05/01/15 07/12/17 History Gabapentin 600 mg PO BID 05/01/15 07/12/17 History Gemfibrozil 600 mg PO BID 05/01/15 07/12/17 History Insulin Aspart Prot/Asp 70/30 90 unit SUBCUT BID 05/01/15 07/12/17 History [NovoLOG Mix 70/30] Omeprazole 20 mg PO DAILY 05/01/15 07/12/17 History Quinapril [Accupril] 10 mg PO DAILY 05/01/15 07/12/17 History Sertraline [Zoloft] 100 mg PO DAILY 05/01/15 07/12/17 History metFORMIN [Glucophage] 1,000 mg PO BID W/MEALS 05/01/15 07/12/17 History Aspirin Chew Tab 81 mg PO DAILY tablet 08/07/15 07/12/17 Rx Carvedilol [Coreg] 6.25 mg PO BID #60 tablet 08/07/15 07/12/17 Rx Cilostazol [Pletal] 50 mg PO BID #60 tablet 08/07/15 07/12/17 Rx Furosemide Tab [Lasix Tab] 20 mg PO DAILY #30 tablet 08/07/15 07/12/17 Rx Nitroglycerin Sl Tab [Nitrostat] 0.4 mg SL Q5M PRN #25 tablet 08/07/15 07/12/17 Rx Clopidogrel [Plavix] 75 mg PO DAILY #30 tablet 08/01/16 07/12/17 Rx Insulin Degludec [Tresiba 34 units SUBCUT BEDTIME 07/03/17 07/12/17 History Flextouch U-100] Ranitidine Tab [Zantac Tab] 1 tablet PO DAILY 07/03/17 07/12/17 History Allergies Allergy/AdvReac Type Severity Reaction Status Date / Time No Known Allergies Allergy Verified 07/12/17 09:50 Review of systems: He is doing well on present therapy and is unaware of any snoring or abnormal breathing on his current CPAP prescription. Exam (Pulmonay) H&P - Constitutional Vitals: Period Temp Pulse Resp BP Sys/Dunn Pulse Ox Last 24 Hr 98.1 F-98.2 F 69-106 16-20 110-164/54-73 98-100 Exam: He is alert and responsive in no acute distress. Pupils equal round reactive to light and accommodation. Extraocular movements intact. Oropharynx with a class III Mallampati exam. Neck is supple without adenopathy or thyromegaly. No supraclavicular adenopathy is noted. Chest with symmetrical breath sounds without focal wheeze, rhonchi, or rales. Cardiac exam reveals a regular rhythm without murmur or gallop. Abdomen obese nontender without palpable hepatosplenomegaly or mass. Extremities are without clubbing, cyanosis, or edema. Neurologically, he is grossly intact. Medical,Surgical,& Family Hx - Medical History Cardio: History of: CAD, Hypertension No history of: CHF, [place] Psychological: History of: Anxiety Disorders Neurology: No history of: Seizures HEENT: History of: Eye Problem (cherelle cataract) Endocrine: History of: Diabetes Mellitus (IDDM) (novolog sq), Diabetes Mellitus (NIDDM), Dyslipidemia Respiratory: History of: Obstructive Sleep Apnea (uses CPAP) Gastrointestinal: History of: GERD, GI Problems Musculoskeletal: History of: Back/Neck Problems Hematology: History of: Anemia - Surgical History Cardiac Surgeries: Sugical HX of: Cardiac Catheterization (2014,2015 Stents x2) , Carotid Endarterectomy HEENT Surgeries: Surgical HX of: Carotid Endarterectomy, Eye Surgery (CATARACT LT FOR RT 05/21/15) Patient denies: Tonsilectomy & Adenoidectomy Abdominal Surgeries: Surgical HX of: Abdominal Surgery (TO [employer]) Orthopedic Surgeries: Surgical HX of;: Spinal Surgery (2 CERVICAL DISC REMOVED) - Family History Family History: Reports;: Family Hypertension (father), Family Stroke (father) - Social History Smoking Status: Former smoker Frequency of Alcohol Use: None Type of Drug Use: None Results - Labs CBC & BMP: 07/12/17 10:49 07/12/17 09:50 Lab Results: I have reviewed the past 24 hour labs Labs: This patient has severe anemia with normal B12, folate, and ferritin level. Quality Measures - VTE Contraindication to Pharmacological VTE Prophylaxis: High Risk of Bleeding Specialty Discharge - Follow Up or Referrals
--- NOTE | 2017-07-12 17:55 | Nuclear Medicine Report ---
History: Shortness of breath. Chest pain Date: 07/12/2017 Study: Nuclear medicine ventilation/perfusion lung scan Comparison exam: Chest x-ray 07/12/2017 Following the inhalation of 40 mCi aerosolized technetium 99m DTPA, images were obtained over the lungs in 3 projections for the purpose of a ventilation study. Then, following the IV administration of 5 mCi technetium 99m MAA, images were acquired of the lungs in the same projections for the purpose of a perfusion scan. There is no moderate or large unmatched segmental perfusion defect. Ventilation and perfusion are essentially normal Impression: Normal study PROCEDURE INTERPRETED AT [facility] DEPARTMENT OF RADIOLOGY Final Report Signed by: Dr. Savi Daniels
[2017-07-12] MEDS: GEMFIBROZIL 600 MG TABLET PO SCH (20:48)
[2017-07-12] MEDS: CILOSTAZOL 50 MG TABLET PO SCH (20:48)
[2017-07-12] MEDS: INSULIN ASPART PROTAMINE/ASPART 70/30 100 UNIT/ML SUBCUT SCH (20:59)
[2017-07-12 22:37] LABS: Troponin I Only 0.222 NG/ML (0.00-0.045)
[2017-07-13 04:40] LABS: Basophils % 0.4 % (0.0-0.8); Eosinophils # 0.2 10*3/uL (0.0-0.87); Eosinophils % 2.2 % (0.00-10.9); Hematocrit 23.8 VOL% (42.0-52.0); Hemoglobin 8.2 GM/DL (14.0-18.0); Immature Granulocytes % 4.2 %; Immature Granulocytes Absolute 0.32 #; Lymphocytes # 1.5 10*3/uL (1.4-4.0); Lymphocytes % 20.2 % (21.2-54.2); Mean Corpuscular HGB Conc 34.5 GM/DL (32-36); Mean Corpuscular Hemoglobin 32 PG (27-34); Mean Corpuscular Volume 91.9 FL (87-102); Mean Platelet Volume 11.4 FL (9.6-12.0); Monocytes # 0.6 10*3/uL (0.11-0.8); Monocytes % 7.5 % (1.7-12.7); NRBC # 0.19 10*3/uL; Neutrophils % 65.5 % (38.7-73.9); Platelet Count 117 T/CUMM (130-400); Red Blood Count 2.59 MC/CUMM (3.8-5.5); Red Cell Distribution Width 22.8 % (9.3-17.3); White Blood Count 7.6 T/CUMM (4-12)
[2017-07-13 05:18] LABS: Microcytosis 1+
[2017-07-13 05:19] LABS: Anisocytosis 1+; Platelet Estimate Adequate; Polychromasia Slight
[2017-07-13 05:29] LABS: Calcium 9.1 MG/DL (8.5-10.1); Magnesium 2.3 MG/DL (1.8-2.4); Osmolality,Calculated 283.3 MOS/KG (273-304); Potassium 4.5 MMOL/L (3.5-5.1)
[2017-07-13 05:31] LABS: Troponin I Only 0.289 NG/ML (0.00-0.045)
--- NOTE | 2017-07-13 07:45 | EKG Report ---
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
[2017-07-13] MEDS ORDERED: ATORVASTATIN 10 MG TABLET PO SCH (09:00)
[2017-07-13 09:38] LABS: Hemoglobin A1 (Alkaline) 97.1 % (96.5-98.5); Hemoglobin A2 (Alkaline) 2.9 % (1.5-3.5)
[2017-07-13] MEDS: INSULIN REGULAR 100 UNIT/ML SUBCUT SCH ×4 (11:03→21:23)
[2017-07-13] MEDS: INSULIN ASPART PROTAMINE/ASPART 70/30 100 UNIT/ML SUBCUT SCH ×2 (11:04→21:25)
[2017-07-13] MEDS ORDERED: PROPOFOL 200 MG/20 ML VIAL IV ONE (11:31)
[2017-07-13] MEDS ORDERED: LIDOCAINE 2% 5 ML VIAL ONE (11:31)
[2017-07-13] MEDS ORDERED: ETOMIDATE 20 MG/10 ML VIAL IV ONE (11:31)
--- NOTE | 2017-07-13 11:42 | History and Physical Update ---
History and Physical Update - History and Physical H&P was reviewed, the patient examined and there: are no changes in the patients condition since last H&P was completed. - Physical Exam Mental Status: alert and oriented Heart: regular rate and rhythm Lung: clear to auscultation Abdomen: within normal limits Vitals: within normal limits
--- NOTE | 2017-07-13 11:43 | Operative Note ---
Date of procedure: 07/13/17 Pre-op diagnosis: Increased indigestion/dyspepsia, anemia Procedure: Procedure: Esophagogastroduodenoscopy Brief clinical abstract: 62-year-old male with history of GERD has had recent symptomatic anemia with hemoglobin 8.2. He denies gross GI bleeding and had stool sample negative for occult blood. He has had some increased indigestion/ dyspepsia symptoms. Patient had coronary arteriograms yesterday with no obstructive coronary disease noted. Indication for procedure: Indigestion/dyspepsia, anemia Endoscopic findings:[After informed consent was obtained, the patient was placed in the left lateral decubitus position. The gastroscope was inserted in the upper esophagus under direct vision with no resistance encountered. Esophageal mucosa 1-2 cm long hiatal hernia. No erosions or ulcerations were noted. The endoscope was advanced in the stomach which was carefully examined including retroflexed view of the cardia and fundus with no abnormalities noted. The pyloric channel, duodenal bulb, second and third portion of the duodenum appeared normal. The endoscope was removed and patient appeared to tolerate the procedure well. Impression: Small hiatal hernia-otherwise normal EGD Recommendations: Check iron stores and LDH/haptoglobin. Anesthesia: MAC Surgeon / Physician: Vijay Daniels Estimated blood loss: none Specimens: none sent Condition: stable Disposition: post procedure unit Results - Labs CBC & BMP: 07/13/17 04:23 07/13/17 04:24 Discharge Plan - Discharge Medications No Action Omeprazole 20 mg PO DAILY Insulin Aspart Prot/Asp 70/30 [NovoLOG Mix 70/30] 90 unit SUBCUT BID Sertraline [Zoloft] 100 mg PO DAILY Amlodipine Besylate 5 mg PO DAILY Gemfibrozil 600 mg PO BID Gabapentin 600 mg PO BID Quinapril [Accupril] 10 mg PO DAILY Atorvastatin [Lipitor] 10 mg PO DAILY metFORMIN [Glucophage] 1,000 mg PO BID W/MEALS Aspirin Chew Tab 81 mg PO DAILY tablet Carvedilol [Coreg] 6.25 mg PO BID #60 tablet Furosemide Tab [Lasix Tab] 20 mg PO DAILY #30 tablet Nitroglycerin Sl Tab [Nitrostat] 0.4 mg SL Q5M PRN #25 tablet PRN Reason: Chest Pain Cilostazol [Pletal] 50 mg PO BID #60 tablet Clopidogrel [Plavix] 75 mg PO DAILY #30 tablet Insulin Degludec [Tresiba Flextouch U-100] 34 units SUBCUT BEDTIME Ranitidine Tab [Zantac Tab] 1 tablet PO DAILY - Follow Up or Referral - Forms/Instructions Instructions: Coronary Artery Disease (GEN), Left Heart Catheterization (DC), Heart Healthy Diet (GEN)
--- NOTE | 2017-07-13 11:57 | Anesthesia Post-Op ---
Anesthesia Post OP - Post Ansesthetic Evaluation Patient seen in post op: Yes Resp: within normal limits CV: within normal limits Mental: within normal limits Temp: within normal limits [id number]: within normal limits Nausea and Vomiting: within normal limits Pain: within normal limits
[2017-07-13 12:17] LABS: % Iron Saturation 32.7 % (18-50); Ferritin 438.5 ng/ml (26-388)
--- NOTE | 2017-07-13 16:22 | Cardiology Progress Note ---
Assessment and Plan - Time spent with patient Time spent with patient: Greater than 30 minutes (1) Morbid obesity Status: Chronic Assessment and plan: SEE PLAN OF CARE LISTED BELOW Current Visit: Yes (2) Anemia Status: Chronic Assessment and plan: SEE PLAN OF CARE LISTED BELOW Current Visit: Yes (3) Diabetes mellitus Status: Chronic Assessment and plan: SEE PLAN OF CARE LISTED BELOW Current Visit: Yes (4) Essential hypertension Status: Chronic Assessment and plan: SEE PLAN OF CARE LISTED BELOW Current Visit: Yes (5) Chest pain Status: Resolved Assessment and plan: SEE PLAN OF CARE LISTED BELOW Current Visit: Yes (6) Obstructive sleep apnea Status: Chronic Assessment and plan: SEE PLAN OF CARE LISTED BELOW Current Visit: No (7) Coronary artery disease Status: Chronic Assessment and plan: SEE PLAN OF CARE LISTED BELOW Current Visit: Yes Qualifiers: Coronary Disease-Associated Artery/Lesion type: nikolski artery [place] vs. transplanted heart: nikolski heart (8) Dyslipidemia Status: Chronic Assessment and plan: SEE PLAN OF CARE LISTED BELOW Current Visit: Yes (9) NSTEMI (non-ST elevated myocardial infarction) Status: Acute Assessment and plan: SEE PLAN OF CARE LISTED BELOW Current Visit: Yes Cardiology - PN: Subj Interval history: [place]: DR. MENA PCP: DR. SHERYL CLEMONS SUMMARY: Mr. Mota, 62WM, with risk factors significant for: Known CAD (S/P PCI mid-RCA with JANET, PCI mid-LAD with JANET July 05, 2017), hypertension, dyslipidemia, diabetes, obesity, sedentary lifestyle. Patient underwent stenting (listed above) for chest pain and shortness of breath over the . Patient continued to have chest pain and shortness of breath post procedure but did not want to return to the [employer]. He was discharged home and continued to have symptoms concerning for angina. He will return to the emergency department July 12, 2017. He urgently underwent cardiac catheterization performed by Dr. Mena which revealed patent stents without new obstructive disease. He was also found to be anemic, unchanged from prior hospitalization. However, given his symptoms of chest pain and shortness of breath, it was felt that his anemia may be more severe than originally thought. Gastroenterology was consulted and patient underwent EGD this morning. No active bleeding source noted. Stool for occult blood negative. 2 units of packed red blood cells were ordered for transfusion. 2016: Patient did not get transfusion as the patient has a warm antibody making it difficult to locate packed red blood cells. However, this afternoon [address] Gannon has asked that hematology be consulted for evaluation and management of this transfusion today. May need preoperative preparation and will defer to hematology. Hopefully, if transfusion is uneventful overnight, he may be eligible for discharge tomorrow. Patient's cardiac biomarkers were mildly elevated likely related to demand ischemia related to his anemia therefore will be diagnosed with NSTEMI. Appreciate Dr. Ladd seeing patient for his severe sleep apnea. IMPRESSION/PLAN: 1. NSTEMI - secondary to demand ischemia related to anemia. Cardiac catheterization revealed no new obstructive disease. VQ lung scan reveals low probability of PE. Continue Aspirin, Plavix, Pletal, beta-karel, RODERICK inhibitor, Lopid. Continue Atorvastatin. 2. KNOWN CAD - recent cardiac catheterization requiring PCI to mid LAD, PCI to RCA. Compliant with medications. 3. HYPERTENSION - well controlled. Reports some adverse reactions with Coreg and will adjust accordingly prior to discharge. 4. DYSLIPIDEMIA -LDL 46. Continue lipid-lowering agent. 5. DIABETES - sliding scale insulin during hospital stay. Adjust accordingly while hospitalized 6. ANEMIA - stool for occult blood negative. Anemia profile pending. EGd revealed no significant source of bleeding. Heme consult per Dr. Gannon 7. MORBID OBESITY - dietary counseling prior to discharge 8. FELIPA - compliant with sleep device. Appreciate Dr. Freed's assistance. Exam (Progress Note) - Constitutional Vitals: Period Temp Pulse Resp BP Sys/Dunn Pulse Ox Last 24 Hr 97.3 F-98.9 F 73-105 14-22 120-152/52-77 92-99 Exam: General: [Appears well with no apparent distress.] [Pleasant and cooperative. ] [Appears comfortable.] HEENT: [PERRL, normocephalic, atraumatic. Mucous membranes moist. No jaundice noted. Conjunctiva moist and clear, sclerae anicteric] Neck: Unable to assess for JVD due to habitus. No thyromegaly or lymphadenopathy noted. No carotid bruit appreciated Cardiac: [Regular rate and rhythm.] [No obvious murmur rub or gallop.] PMI is nondisplaced. Lungs: [Clear to auscultation without accessory muscle use to assist the respiratory pattern.] Using CPAP device intermittently Abdomen: Soft, bowel sounds normoactive. Nontender and nondistended. No abdominal bruit or thrill noted. No masses noted. Musculoskeletal: No fluid collection. Decreased range of motion is noted. Extremities: Right groin soft, free of hematoma or bruit. No clubbing, cyanosis noted. [ No edema noted.] Upper extremity pulses 2+. Lower extremity pulses 2+. Capillary refill less than 3 seconds. Skin: No unusual lesions or rashes. No skin breakdown appreciated. Neuro: Awake, alert and oriented 3. Moves all extremities well without hemiparesis or paralysis. No essential tremor is appreciated. Result/EKG - Labs CBC & BMP: 07/13/17 04:23 07/13/17 04:24 Lab Results: I have reviewed the past 24 hour labs Labs: Laboratory Results - last 24 hr 07/12/17 07/12/17 07/12/17 09:50 10:49 12:39 WBC RBC Hgb Hct MCV MCH MCHC RDW Plt Count MPV Neut % (Auto) Lymph % (Auto) [place] % (Auto) Eos % (Auto) Baso % (Auto) Neut # (Auto) Lymph # (Auto) [place] # (Auto) Eos # (Auto) Baso # (Auto) Immature Gran % Nucleated RBC % Immature Gran # Nucleated RBCs # Anemia Panel Interp Platelet Estimate Immature Plt Fraction Polychromasia Anisocytosis Microcytosis Hemoglobin A1 97.1 Hemoglobin A2 2.9 Hgb ELP Interp Haptoglobin Sodium Potassium Chloride Carbon Dioxide Anion Gap BUN Creatinine GFR Calculation BUN/Creatinine Ratio Glucose POC Glucose Calculated Osmolality Calcium Magnesium Iron TIBC % Saturation Ferritin Lactate Dehydrogenase Total Creatine Kinase CK-MB (CK-2) Troponin I Blood Type O POSITIVE Antibody Screen Positive Antibody Identification Warm Auto Antibody 07/12/17 07/12/17 07/12/17 18:07 20:19 21:52 WBC RBC Hgb Hct MCV MCH MCHC RDW Plt Count MPV Neut % (Auto) Lymph % (Auto) [place] % (Auto) Eos % (Auto) Baso % (Auto) Neut # (Auto) Lymph # (Auto) [place] # (Auto) Eos # (Auto) Baso # (Auto) Immature Gran % Nucleated RBC % Immature Gran # Nucleated RBCs # Anemia Panel Interp Platelet Estimate Immature Plt Fraction Polychromasia Anisocytosis Microcytosis Hemoglobin A1 Hemoglobin A2 Hgb ELP Interp Haptoglobin Sodium Potassium Chloride Carbon Dioxide Anion Gap BUN Creatinine GFR Calculation BUN/Creatinine Ratio Glucose POC Glucose 187 H Calculated Osmolality Calcium Magnesium Iron TIBC % Saturation Ferritin Lactate Dehydrogenase Total Creatine Kinase 86 CK-MB (CK-2) 1.4 Troponin I 0.221 H 0.222 H Blood Type Antibody Screen Antibody Identification 07/13/17 07/13/17 07/13/17 04:23 04:24 04:24 WBC 7.6 RBC 2.59 L Hgb 8.2 L Hct 23.8 L MCV 91.9 MCH 32 MCHC 34.5 RDW 22.8 H Plt Count 117 L MPV 11.4 Neut % (Auto) 65.5 Lymph % (Auto) 20.2 L [place] % (Auto) 7.5 Eos % (Auto) 2.2 Baso % (Auto) 0.4 Neut # (Auto) 5.0 Lymph # (Auto) 1.5 [place] # (Auto) 0.6 Eos # (Auto) 0.2 Baso # (Auto) 0.0 Immature Gran % 4.2 Nucleated RBC % 2.5 Immature Gran # 0.32 Nucleated RBCs # 0.19 Anemia Panel Interp Platelet Estimate Adequate Immature Plt Fraction 0.0 Polychromasia Slight Anisocytosis 1+ Microcytosis 1+ Hemoglobin A1 Hemoglobin A2 Hgb ELP Interp Haptoglobin Sodium 141 Potassium 4.5 Chloride 106 Carbon Dioxide 26 Anion Gap 13.5 BUN 21 H Creatinine 1.10 GFR Calculation 94 BUN/Creatinine Ratio 19.00 Glucose 103 POC Glucose Calculated Osmolality 283.3 Calcium 9.1 Magnesium 2.3 Iron TIBC % Saturation Ferritin Lactate Dehydrogenase Total Creatine Kinase 75 CK-MB (CK-2) 1.2 Troponin I 0.289 H D Blood Type Antibody Screen Antibody Identification 07/13/17 07/13/17 07/13/17 07:31 15:39 Unknown WBC RBC Hgb Hct MCV MCH MCHC RDW Plt Count MPV Neut % (Auto) Lymph % (Auto) [place] % (Auto) Eos % (Auto) Baso % (Auto) Neut # (Auto) Lymph # (Auto) [place] # (Auto) Eos # (Auto) Baso # (Auto) Immature Gran % Nucleated RBC % Immature Gran # Nucleated RBCs # Anemia Panel Interp Platelet Estimate Immature Plt Fraction Polychromasia Anisocytosis Microcytosis Hemoglobin A1 Hemoglobin A2 Hgb ELP Interp Haptoglobin Sodium Potassium Chloride Carbon Dioxide Anion Gap BUN Creatinine GFR Calculation BUN/Creatinine Ratio Glucose POC Glucose 148 H 232 H Calculated Osmolality Calcium Magnesium Iron 97 TIBC 297 % Saturation 32.7 Ferritin 438.5 H Lactate Dehydrogenase Total Creatine Kinase CK-MB (CK-2) Troponin I Blood Type Antibody Screen Antibody Identification 07/13/17 07/13/17 Unknown Unknown WBC RBC Hgb Hct MCV MCH MCHC RDW Plt Count MPV Neut % (Auto) Lymph % (Auto) [place] % (Auto) Eos % (Auto) Baso % (Auto) Neut # (Auto) Lymph # (Auto) [place] # (Auto) Eos # (Auto) Baso # (Auto) Immature Gran % Nucleated RBC % Immature Gran # Nucleated RBCs # Anemia Panel Interp Platelet Estimate Immature Plt Fraction Polychromasia Anisocytosis Microcytosis Hemoglobin A1 Hemoglobin A2 Hgb ELP Interp Haptoglobin < 8.0 L Sodium Potassium Chloride Carbon Dioxide Anion Gap BUN Creatinine GFR Calculation BUN/Creatinine Ratio Glucose POC Glucose Calculated Osmolality Calcium Magnesium Iron TIBC % Saturation Ferritin Lactate Dehydrogenase 326 H Total Creatine Kinase CK-MB (CK-2) Troponin I Blood Type Antibody Screen Antibody Identification - Diagnostic Findings Procedure: Chest x-ray: report reviewed by me - EKG EKG results: interpreted by me EKG shows: sinus rhythm Quality Measures - VTE Contraindication to Pharmacological VTE Prophylaxis: High Risk of Bleeding Specialty Discharge - Follow Up or Referrals
--- NOTE | 2017-07-13 17:12 | Hematology Consult ---
Assessment and Plan (1) Autoimmune hemolytic anemia Status: Acute Assessment and plan: I will start Mr. Mota on steroids tonight. I am unsure what has triggered his autoimmune hemolytic anemia. The lab states that the antibody screen done recently is a Estefanía test. I will make certain of this. I would hold off on a transfusion for now since she is not symptomatic. I will re-evaluate him in the morning with repeat lab check. Current Visit: Yes (2) Anemia Status: Chronic Current Visit: Yes History of Present Illness - Consult Narrative History of present illness: Mr. Mota is a 62 year old male with a history of coronary artery disease status post stent placement approximately 10 days ago who is readmitted with chest pain this past weekend. He was found to be anemic and thrombocytopenic. Further workup revealed a low haptoglobin, elevated bilirubin, elevated reticulocyte count, and a positive Estefanía test. This point toward a autoimmune hemolytic anemia. He states he feels well denies any chest pain at this time. He underwent lower endoscopy today which was negative. He states he has long- standing thrombocytopenia dating back for many years. He saw a local hydrogen treater 3 or 4 years ago but is unsure for what reason. His only new medication he has been placed on recently his Plavix. I am unsure if there is any association with Plavix and autoimmune hemolytic anemia at this time. CC: Toni Mena MD - Home Medications and Allergies Home Medications: Home Medications Medication Instructions Recorded Confirmed Type Amlodipine Besylate 5 mg PO DAILY 05/01/15 07/12/17 History Atorvastatin [Lipitor] 10 mg PO DAILY 05/01/15 07/12/17 History Gabapentin 600 mg PO BID 05/01/15 07/12/17 History Gemfibrozil 600 mg PO BID 05/01/15 07/12/17 History Insulin Aspart Prot/Asp 70/30 90 unit SUBCUT BID 05/01/15 07/12/17 History [NovoLOG Mix 70/30] Omeprazole 20 mg PO DAILY 05/01/15 07/12/17 History Quinapril [Accupril] 10 mg PO DAILY 05/01/15 07/12/17 History Sertraline [Zoloft] 100 mg PO DAILY 05/01/15 07/12/17 History metFORMIN [Glucophage] 1,000 mg PO BID W/MEALS 05/01/15 07/12/17 History Aspirin Chew Tab 81 mg PO DAILY tablet 08/07/15 07/12/17 Rx Carvedilol [Coreg] 6.25 mg PO BID #60 tablet 08/07/15 07/12/17 Rx Cilostazol [Pletal] 50 mg PO BID #60 tablet 08/07/15 07/12/17 Rx Furosemide Tab [Lasix Tab] 20 mg PO DAILY #30 tablet 08/07/15 07/12/17 Rx Nitroglycerin Sl Tab [Nitrostat] 0.4 mg SL Q5M PRN #25 tablet 08/07/15 07/12/17 Rx Clopidogrel [Plavix] 75 mg PO DAILY #30 tablet 08/01/16 07/12/17 Rx Insulin Degludec [Tresiba 34 units SUBCUT BEDTIME 07/03/17 07/12/17 History Flextouch U-100] Ranitidine Tab [Zantac Tab] 1 tablet PO DAILY 07/03/17 07/12/17 History Allergies/Adverse Reactions: Allergies Allergy/AdvReac Type Severity Reaction Status Date / Time No Known Allergies Allergy Verified 07/12/17 09:50 Medical,Surgical,& Family Hx - Medical History Cardio: History of: CAD, Hypertension No history of: CHF, HI Psychological: History of: Anxiety Disorders Neurology: No history of: Seizures HEENT: History of: Eye Problem (cherelle cataract) Endocrine: History of: Diabetes Mellitus (IDDM) (novolog sq), Diabetes Mellitus (NIDDM), Dyslipidemia Respiratory: History of: Obstructive Sleep Apnea (uses CPAP) Gastrointestinal: History of: GERD, GI Problems Musculoskeletal: History of: Back/Neck Problems Hematology: History of: Anemia - Surgical History Cardiac Surgeries: Sugical HX of: Cardiac Catheterization (2014,2015 Stents x2) , Carotid Endarterectomy HEENT Surgeries: Surgical HX of: Carotid Endarterectomy, Eye Surgery (CATARACT LT FOR RT 05/21/15) Patient denies: Tonsilectomy & Adenoidectomy Abdominal Surgeries: Surgical HX of: Abdominal Surgery (TO REPLACE NAVAL) Orthopedic Surgeries: Surgical HX of;: Spinal Surgery (2 CERVICAL DISC REMOVED) - Family History Family History: Reports;: Family Hypertension (father), Family Stroke (father) - Social History Smoking Status: Former smoker Frequency of Alcohol Use: None Type of Drug Use: None 12 point system: reviewed and no additional remarkable complaints except as stated - Constitutional Constitutional: Absent: chills, fatigue, fever(s), weakness - Cardiovascular Cardiovascular ROS IM: Absent: chest pain, edema, orthopnea - Respiratory Respiratory: Absent: cough, dyspnea, hemoptysis - Gastrointestinal Gastrointestinal: Absent: abdominal pain, dysphagia, loose stools, melena, nausea Exam - Constitutional Vitals: Period Temp Pulse Resp BP Sys/Dunn Pulse Ox Last 24 Hr 97.3 F-98.9 F 73-105 14-22 120-152/52-77 92-99 General appearance: normal weight, no acute distress - Head Head Exam: Present: normocephalic, atraumatic - Eye Eye Exam: Present: EOMI. Absent: scleral icterus Pupils: Present: PERRL - Neck Neck exam: Absent: lymphadenopathy, thyromegaly - Respiratory Respiratory exam: Present: CTAB. Absent: chest wall tenderness - Cardiovascular Cardiovascular exam: Present: RRR. Absent: JVD, systolic murmur - GI/Abdominal GI/Abdominal exam: Present: soft. Absent: ascites, distended, mass - Neurological Exam Neurological exam: Present: alert, oriented X3 - Psychiatric Psychiatric exam: Present: normal affect, normal mood - Skin Skin exam: Present: warm, dry Results - Labs CBC & BMP: 07/13/17 04:23 07/13/17 04:24 Lab Results: I have reviewed the past 24 hour labs Quality Measures - VTE Contraindication to Pharmacological VTE Prophylaxis: High Risk of Bleeding Specialty Discharge - Follow Up or Referrals
[2017-07-13] MEDS ORDERED: methylPREDNISolone SOD SUC 125 MG/2 ML VIAL IV ONE (17:30)
[2017-07-13] MEDS: PANTOPRAZOLE 40 MG TABLET PO SCH (17:34)
[2017-07-13] MEDS: HYOSCYAMINE 0.125 MG TABLET PO SCH ×2 (17:34→21:25)
[2017-07-13] MEDS: QUINAPRIL 5 MG TABLET PO SCH (17:34)
[2017-07-13] MEDS: ASPIRIN CHEW 81 MG TABLET PO SCH (17:34)
[2017-07-13] MEDS: GEMFIBROZIL 600 MG TABLET PO SCH ×2 (17:34→21:25)
[2017-07-13] MEDS: CILOSTAZOL 50 MG TABLET PO SCH ×2 (17:34→21:26)
[2017-07-13] MEDS: CLOPIDOGREL 75 MG TABLET PO SCH (17:34)
[2017-07-13] MEDS: SERTRALINE 100 MG TABLET PO SCH (17:34)
[2017-07-13] MEDS: FAMOTIDINE 20 MG TABLET PO SCH (17:35)
[2017-07-13] MEDS: amLODIPine 5 MG TABLET PO SCH (17:35)
[2017-07-13] MEDS: SPIRONOLACTONE 25 MG TABLET PO SCH (17:35)
[2017-07-13] MEDS: CARVEDILOL 6.25 MG TABLET PO SCH ×2 (17:46→21:23)
[2017-07-13] MEDS ORDERED: methylPREDNISolone SOD SUC 125 MG/2 ML VIAL IV SCH (18:00)
[2017-07-13] MEDS ORDERED: [UNRECOGNIZED DRUG - OTHER] SUBCUT SCH (21:00)
[2017-07-13] MEDS ORDERED: INSULIN DEGLUDEC SUBCUT SCH (21:00)
[2017-07-14 04:00] LABS: Basophils # 0.1 10*3/uL (0.0-0.2); Basophils % 0.5 % (0.0-0.8); Eosinophils % 0.2 % (0.00-10.9); Hematocrit 24.1 VOL% (42.0-52.0); Hemoglobin 8.1 GM/DL (14.0-18.0); Immature Granulocytes % 1.8 %; Immature Granulocytes Absolute 0.23 #; Lymphocytes # 0.8 10*3/uL (1.4-4.0); Mean Corpuscular HGB Conc 33.6 GM/DL (32-36); Mean Corpuscular Hemoglobin 31 PG (27-34); Mean Corpuscular Volume 93.1 FL (87-102); Mean Platelet Volume 11.9 FL (9.6-12.0); Monocytes # 0.4 10*3/uL (0.11-0.8); Monocytes % 3.1 % (1.7-12.7); NRBC # 0.16 10*3/uL; Neutrophils # 11.4 10*3/uL (1.4-7.4); Neutrophils % 88.4 % (38.7-73.9); Platelet Count 142 T/CUMM (130-400); Red Blood Count 2.59 MC/CUMM (3.8-5.5); Red Cell Distribution Width 22.5 % (9.3-17.3); White Blood Count 12.9 T/CUMM (4-12)
[2017-07-14 04:33] LABS: Magnesium 2.4 MG/DL (1.8-2.4); Osmolality,Calculated 286.1 MOS/KG (273-304); Potassium 4.9 MMOL/L (3.5-5.1)
[2017-07-14] MEDS ORDERED: methylPREDNISolone SOD SUC 125 MG/2 ML VIAL IV SCH (07:00)
--- NOTE | 2017-07-14 07:15 | EKG Report ---
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
--- NOTE | 2017-07-14 07:55 | Hematology Progress Note ---
Assessment and Plan (1) AIHA (autoimmune hemolytic anemia) Status: Acute Current Visit: Yes (2) Anemia Status: Chronic Current Visit: Yes Hematology Subjective PN Interval history: Mr. Mota seems to be doing well today. His hemoglobin is essentially stable from yesterday. We started him on Solu-Medrol last night and he tolerated this well. I will go ahead and convert him to prednisone today. I think it is safe for him to have 2 unit packed red cell transfusion today since his hemolysis does not seem severe. Given his recent acute coronary event, he would likely benefit from improved hemoglobin. I am unsure of the etiology of his autoimmune process. I will likely set him up for a CT scan at some point to rule out some type of underlying malignancy. His only new medication is Plavix which is not associated with autoimmune processes to my knowledge. From my standpoint he can be discharged home in any point. If he is discharged today or in the morning, I will see him back in clinic in 2 weeks to recheck his CBC, Haptoglobin, and Retic count. He will need to be discharged home on prednisone 60 mg p.o. daily. Exam - Constitutional Vitals: Period Temp Pulse Resp BP Sys/Dunn Pulse Ox Last 24 Hr 97.7 F-98.4 F 86-105 14-22 121-152/56-71 92-98 General appearance: normal weight, no acute distress - Head Head Exam: Present: normocephalic, atraumatic - Eye Eye Exam: Present: EOMI Pupils: Present: PERRL - ENT ENT exam: Present: normal exam, normal oropharynx - Neck Neck exam: Absent: lymphadenopathy, thyromegaly - Respiratory Respiratory exam: Present: CTAB. Absent: wheezes - Cardiovascular Cardiovascular exam: Present: RRR. Absent: JVD, systolic murmur - GI/Abdominal GI/Abdominal exam: Present: soft. Absent: ascites, mass - Neurological Exam Neurological exam: Present: alert, oriented X3 - Psychiatric Psychiatric exam: Present: normal affect, normal mood Results - Labs CBC & BMP: 07/14/17 03:02 07/14/17 03:03 Lab Results: I have reviewed the past 24 hour labs Quality Measures - VTE Contraindication to Pharmacological VTE Prophylaxis: High Risk of Bleeding Specialty Discharge - Follow Up or Referrals
[2017-07-14] MEDS ORDERED: predniSONE 20 MG TABLET PO SCH (09:00)
--- NOTE | 2017-07-14 09:27 | Gastrointestinal Progress Note ---
Assessment and Plan (1) Atypical chest pain Status: Acute Assessment and plan: 07/14-EGD results noted as below. No complaints of chest pain. Awaiting arrival of blood for transfusion later today. H&H 06/24. Plan an addendum to follow Dr. Daniels. 07/12-several day history of chest pain with associated shortness of breath with recent heart catheterization and stenting 2. Recatheterization done today with no new findings. On Plavix therapy. Prior endoscopy done at endoscopic clinic. Also findings of anemia with H&H 06/23. To be transfused 2 units packed red blood cells. Stools pending for occult blood. Obtained prior endoscopy results from endoscopic clinic. Plan for tentative diagnostic EGD tomorrow to further evaluate. Plan an addendum to followed by Dr. Daniels. Current Visit: Yes Gastroenterology - PN: Subj Interval history: CC: Anemia Pt is seen awake and alert sitting up in bed. States he had a good night and is feeling well overall other than no energy. He has two units of PRBC ordered however due to his antibodies we are still awaiting for the blood to arrive to be transfused. H&H is 06/[address] Burnham is following him and will plan to do so after discharge. He denies any abdominal pain, nausea vomiting. He is tolerating his diet well. EGD on yesterday did not yield any results other than a small hiatal hernia. ROS: Denies shortness of breath or chest pain Exam (Progress Note) - Constitutional Vitals: Period Temp Pulse Resp BP Sys/Dunn Pulse Ox Last 24 Hr 97.7 F-98.4 F 86-105 14-22 121-152/56-71 92-98 - Other Additional findings: General appearance: no acute distress, over weight - Head Head exam: Present: normal inspection, normocephalic - Eye Eye exam: Present: other (Lids and conjunctivae are unremarkable). Absent: scleral icterus - ENT ENT exam: Present: normal exam, normal oropharynx - Neck Neck exam: Present: normal inspection - Respiratory Respiratory exam: Present: clear to auscultation bilaterally. Absent: rales, rhonchi, wheezes - Cardiovascular Cardiovascular exam: Present: regular rate and rhythm. Absent: diastolic murmur , JVD, systolic murmur - GI/Abdominal GI/Abdominal exam: Present: normal bowel sounds, soft. Absent: ascites, distended, mass, organomegaly, tenderness - Extremities Exam Extremities exam: Present: normal inspection, full ROM - Back Exam Back exam: Present: normal inspection - Neurological Exam Neurological exam: Present: alert, oriented X3 - Psychiatric Psychiatric exam: Present: normal affect, normal mood - Skin Skin exam: Present: normal color, warm, dry Results - Labs CBC & BMP: 07/14/17 03:02 07/14/17 03:03 Lab Results: I have reviewed the past 24 hour labs Specialty Discharge - Follow Up or Referrals
[2017-07-14] MEDS: QUINAPRIL 5 MG TABLET PO SCH (10:06)
[2017-07-14] MEDS: INSULIN REGULAR 100 UNIT/ML SUBCUT SCH ×3 (10:06→15:33)
[2017-07-14] MEDS: ASPIRIN CHEW 81 MG TABLET PO SCH (10:07)
[2017-07-14] MEDS: CARVEDILOL 6.25 MG TABLET PO SCH (10:07)
[2017-07-14] MEDS: GEMFIBROZIL 600 MG TABLET PO SCH ×2 (10:08→22:08)
[2017-07-14] MEDS: FAMOTIDINE 20 MG TABLET PO SCH (10:08)
[2017-07-14] MEDS: HYOSCYAMINE 0.125 MG TABLET PO SCH ×2 (10:08→22:08)
[2017-07-14] MEDS: amLODIPine 5 MG TABLET PO SCH (10:08)
[2017-07-14] MEDS: CILOSTAZOL 50 MG TABLET PO SCH ×2 (10:09→22:09)
[2017-07-14] MEDS: CLOPIDOGREL 75 MG TABLET PO SCH (10:09)
[2017-07-14] MEDS: SERTRALINE 100 MG TABLET PO SCH (10:10)
[2017-07-14] MEDS: PANTOPRAZOLE 40 MG TABLET PO SCH (10:10)
[2017-07-14] MEDS: SPIRONOLACTONE 25 MG TABLET PO SCH (10:17)
[2017-07-14] MEDS: INSULIN ASPART PROTAMINE/ASPART 70/30 100 UNIT/ML SUBCUT SCH ×2 (10:18→22:08)
[2017-07-14] MEDS: GABAPENTIN 600 MG TABLET PO SCH ×2 (14:46→22:08)
[2017-07-14] MEDS: MORPHINE 2 MG/1 ML SYRINGE IV PRN ×2 (15:00→18:40)
--- NOTE | 2017-07-14 16:41 | Cardiology Progress Note ---
Assessment and Plan - Time spent with patient Time spent with patient: Greater than 30 minutes (1) Morbid obesity Status: Chronic Assessment and plan: SEE PLAN OF CARE LISTED BELOW Current Visit: Yes (2) Anemia Status: Chronic Assessment and plan: SEE PLAN OF CARE LISTED BELOW Current Visit: Yes (3) Diabetes mellitus Status: Chronic Assessment and plan: SEE PLAN OF CARE LISTED BELOW Current Visit: Yes (4) Essential hypertension Status: Chronic Assessment and plan: SEE PLAN OF CARE LISTED BELOW Current Visit: Yes (5) Chest pain Status: Resolved Assessment and plan: SEE PLAN OF CARE LISTED BELOW Current Visit: Yes (6) Obstructive sleep apnea Status: Chronic Assessment and plan: SEE PLAN OF CARE LISTED BELOW Current Visit: No (7) Coronary artery disease Status: Chronic Assessment and plan: SEE PLAN OF CARE LISTED BELOW Current Visit: Yes Qualifiers: Coronary Disease-Associated Artery/Lesion type: [place] artery [place] vs. transplanted heart: [place] heart (8) Dyslipidemia Status: Chronic Assessment and plan: SEE PLAN OF CARE LISTED BELOW Current Visit: Yes (9) NSTEMI (non-ST elevated myocardial infarction) Status: Acute Assessment and plan: SEE PLAN OF CARE LISTED BELOW Current Visit: Yes Cardiology - PN: Subj Interval history: METHODS AND PROCEDURES ANALYST: DR. MENA PCP: DR. SHERYL CLEMONS SUMMARY: Mr. Mota, 62WM, with risk factors significant for: Known CAD (S/P PCI mid-RCA with JANET, PCI mid-LAD with JANET July 05, 2017), hypertension, dyslipidemia, diabetes, obesity, sedentary lifestyle. Patient underwent stenting (listed above) for chest pain and shortness of breath over the . Patient continued to have chest pain and shortness of breath post procedure but did not want to return to the [employer]. He was discharged home and continued to have symptoms concerning for angina. He will return to the emergency department July 12, 2017. He urgently underwent cardiac catheterization performed by Dr. Mena which revealed patent stents without new obstructive disease. He was also found to be anemic, unchanged from prior hospitalization. However, given his symptoms of chest pain and shortness of breath, it was felt that his anemia may be more severe than originally thought. Gastroenterology was consulted and patient underwent EGD this morning. No active bleeding source noted. Stool for occult blood negative. 2 units of packed red blood cells were ordered for transfusion. 2016: Patient did not get transfusion as the patient has a warm antibody making it difficult to locate packed red blood cells. However, this afternoon 2 units have been located. Dr. Gannon has asked that hematology be consulted for evaluation and management of this transfusion today. May need preoperative preparation and will defer to hematology. Hopefully, if transfusion is uneventful overnight, he may be eligible for discharge tomorrow. Patient's cardiac biomarkers were mildly elevated likely related to demand ischemia related to his anemia therefore will be diagnosed with NSTEMI. Appreciate Dr. Ladd seeing patient for his severe sleep apnea. 2016: Mr. Mota continues to be asymptomatic with minimal exertion. Walking to the bathroom and back causes chest pain and shortness of breath. With a great difficulty in locating 2 units of packed red blood cells compatible with his blood type and antibodies. Hopefully, he will be transfused this afternoon. Dr. Burnham has seen patient believes he may have autoimmune hemolytic anemia. He is being treated with steroids accordingly. Blood glucose levels are beginning to rise significantly after treatment with steroids. Will consult his primary care provider, Dr. Sheryl Clemons, for assistance in management of such. Will need a CT scan and labs outpatient per Dr. Burnham to rule out underlying malignancy. Blood pressure slightly elevated as his heart rate. Will increase beta-blockade beginning with this evening's dose. IMPRESSION/PLAN: 1. NSTEMI - secondary to demand ischemia related to anemia. Cardiac catheterization revealed no new obstructive disease. VQ lung scan reveals low probability of PE. Continue Aspirin, Plavix, Pletal, beta-karel, RODERICK inhibitor, Lopid, Atorvastatin. 2. KNOWN CAD - recent cardiac catheterization requiring PCI to mid LAD, PCI to RCA. Compliant with medications. 3. HYPERTENSION -suboptimally controlled. Will increase Coreg for better blood pressure control. 4. DYSLIPIDEMIA - LDL 46. Continue lipid-lowering agent, Lopid. 5. DIABETES - with the addition of steroids, blood glucose levels are climbing. Will consult Dr. Clemons for assistance. 6. ANEMIA - stool for occult blood negative. Thought to be autoimmune hemolytic anemia. Steroids have been initiated 7. MORBID OBESITY - dietary counseling prior to discharge 8. FELIPA - compliant with sleep device. Appreciate Dr. Freed's assistance. Exam (Progress Note) - Constitutional Vitals: Period Temp Pulse Resp BP Sys/Dunn Pulse Ox Last 24 Hr 97.7 F-98.7 F 86-99 16-20 124-154/56-88 95-99 Exam: General: [Appears well with no apparent distress.] [Pleasant and cooperative. ] [Appears comfortable.] HEENT: [PERRL, normocephalic, atraumatic. Mucous membranes moist. No jaundice noted. Conjunctiva moist and clear, sclerae anicteric] Neck: Unable to assess for JVD due to habitus. No thyromegaly or lymphadenopathy noted. No carotid bruit appreciated Cardiac: [Regular rate and rhythm.] [No obvious murmur rub or gallop.] PMI is nondisplaced. Lungs: [Clear to auscultation without accessory muscle use to assist the respiratory pattern.] Using CPAP device intermittently Abdomen: Soft, bowel sounds normoactive. Nontender and nondistended. No abdominal bruit or thrill noted. No masses noted. Musculoskeletal: No fluid collection. Decreased range of motion is noted. Extremities: Right groin soft, free of hematoma or bruit. No clubbing, cyanosis noted. [ No edema noted.] Upper extremity pulses 2+. Lower extremity pulses 2+. Capillary refill less than 3 seconds. Skin: No unusual lesions or rashes. No skin breakdown appreciated. Neuro: Awake, alert and oriented 3. Moves all extremities well without hemiparesis or paralysis. No essential tremor is appreciated. Result/EKG - Labs CBC & BMP: 07/14/17 03:02 07/14/17 03:03 Lab Results: I have reviewed the past 24 hour labs Labs: Laboratory Results - last 24 hr 07/12/17 07/12/17 07/13/17 09:50 12:39 16:50 WBC RBC Hgb Hct MCV MCH MCHC RDW Plt Count MPV Neut % (Auto) Lymph % (Auto) [place] % (Auto) Eos % (Auto) Baso % (Auto) Neut # (Auto) Lymph # (Auto) [place] # (Auto) Eos # (Auto) Baso # (Auto) Immature Gran % Nucleated RBC % Immature Gran # Nucleated RBCs # Immature Plt Fraction Sodium Potassium Chloride Carbon Dioxide Anion Gap BUN Creatinine GFR Calculation BUN/Creatinine Ratio Glucose POC Glucose Calculated Osmolality Calcium Magnesium Blood Type Cancelled O POSITIVE Antibody Screen Positive Cancelled Crossmatch See Detail Blood Bank Comment Cancelled 07/13/17 07/14/17 07/14/17 19:36 03:02 03:03 WBC 12.9 H D RBC 2.59 L Hgb 8.1 L Hct 24.1 L MCV 93.1 MCH 31 MCHC 33.6 RDW 22.5 H Plt Count 142 D MPV 11.9 Neut % (Auto) 88.4 H Lymph % (Auto) 6.0 L [place] % (Auto) 3.1 Eos % (Auto) 0.2 Baso % (Auto) 0.5 Neut # (Auto) 11.4 H Lymph # (Auto) 0.8 L [place] # (Auto) 0.4 Eos # (Auto) 0.0 Baso # (Auto) 0.1 Immature Gran % 1.8 Nucleated RBC % 1.2 Immature Gran # 0.23 Nucleated RBCs # 0.16 Immature Plt Fraction 0.0 Sodium 135 L Potassium 4.9 Chloride 102 Carbon Dioxide 26 Anion Gap 11.9 BUN 26 H Creatinine 1.50 H GFR Calculation 63 BUN/Creatinine Ratio 17.00 Glucose 322 H POC Glucose 238 H Calculated Osmolality 286.1 Calcium 9.0 Magnesium 2.4 Blood Type Antibody Screen Crossmatch Blood Bank Comment 07/14/17 07/14/17 07/14/17 07:46 11:13 14:56 WBC RBC Hgb Hct MCV MCH MCHC RDW Plt Count MPV Neut % (Auto) Lymph % (Auto) [place] % (Auto) Eos % (Auto) Baso % (Auto) Neut # (Auto) Lymph # (Auto) [place] # (Auto) Eos # (Auto) Baso # (Auto) Immature Gran % Nucleated RBC % Immature Gran # Nucleated RBCs # Immature Plt Fraction Sodium Potassium Chloride Carbon Dioxide Anion Gap BUN Creatinine GFR Calculation BUN/Creatinine Ratio Glucose POC Glucose 319 H 429 H 473 H Calculated Osmolality Calcium Magnesium Blood Type Antibody Screen Crossmatch Blood Bank Comment - Diagnostic Findings Procedure: Chest x-ray: report reviewed by me - EKG EKG results: normal ST/T EKG shows: sinus rhythm Quality Measures - VTE Contraindication to Pharmacological VTE Prophylaxis: High Risk of Bleeding Specialty Discharge - Follow Up or Referrals
[2017-07-14] MEDS: ALUM/MAG/SIMETH/LIDO VISC 1:1 30 ML BOTTLE PO ONE ×2 (17:14→18:30)
[2017-07-14] MEDS: NITROGLYCERIN 2% OINT 1 INCH/GM PACK TOP SCH (19:30)
[2017-07-14] MEDS ORDERED: CLORAZEPATE 3.75 MG TABLET PO PRN (20:37)
[2017-07-14] MEDS ORDERED: MORPHINE 10 MG/1 ML VIAL IV PRN (20:42)
[2017-07-14] MEDS: CARVEDILOL 12.5 MG TABLET PO SCH (22:07)
[2017-07-15 05:57] LABS: Basophils % 0.2 % (0.0-0.8); Eosinophils % 0.2 % (0.00-10.9); Hematocrit 21.3 VOL% (42.0-52.0); Hemoglobin 7.2 GM/DL (14.0-18.0); Immature Granulocytes % 2.4 %; Immature Granulocytes Absolute 0.31 #; Lymphocytes # 1.6 10*3/uL (1.4-4.0); Lymphocytes % 12.1 % (21.2-54.2); Mean Corpuscular HGB Conc 33.8 GM/DL (32-36); Mean Corpuscular Hemoglobin 32 PG (27-34); Mean Corpuscular Volume 93.8 FL (87-102); Mean Platelet Volume 11.3 FL (9.6-12.0); Monocytes # 0.9 10*3/uL (0.11-0.8); Monocytes % 7.3 % (1.7-12.7); NRBC # 0.12 10*3/uL; Neutrophils % 77.8 % (38.7-73.9); Platelet Count 134 T/CUMM (130-400); Red Blood Count 2.27 MC/CUMM (3.8-5.5); Red Cell Distribution Width 23.2 % (9.3-17.3); White Blood Count 12.8 T/CUMM (4-12)
[2017-07-15 06:24] LABS: Lymphocytes 12 % (20-55); Segmented Neutrophils 80 % (50-85); Total Cells Counted 100
[2017-07-15 06:25] LABS: Anisocytosis 1+; Microcytosis 1+; Platelet Estimate Adequate; Polychromasia Slight
[2017-07-15 06:36] LABS: Calcium 8.7 MG/DL (8.5-10.1); Magnesium 2.7 MG/DL (1.8-2.4); Osmolality,Calculated 291.7 MOS/KG (273-304); Potassium 4.7 MMOL/L (3.5-5.1)
--- NOTE | 2017-07-15 07:25 | EKG Report ---
Stationary ECG Study [facility] Test Date: 07/15/2017 7:24:46 AM Pat Name: EKATERINA MCCRAY Department: Room: 277 Gender: M Volunteer Services Director: DENIZ : 1955 Requested by: Toni Mena Order Number: [id number] Reading MD: TIFFANY BOUDREAUX Intervals Shanks Rate: 62 P: 62 MD: 165 QRS: 35 QRSD: 80 T: -28 QT: 435 QTc: 440 Interpretive Statements SINUS RHYTHM MINIMAL ST DEPRESSION ABNORMAL QRS-T ANGLE INTERPRETATION BASED ON A DEFAULT AGE OF 40 YEARS Electronically Signed On 07-15-17 10:39:07 CDT by TIFFANY BOUDREAUX [email or web address]
[2017-07-15] MEDS: INSULIN REGULAR 100 UNIT/ML SUBCUT SCH ×5 (07:33→22:28)
[2017-07-15] MEDS: NITROGLYCERIN 2% OINT 1 INCH/GM PACK TOP SCH ×3 (07:34→20:06)
--- NOTE | 2017-07-15 08:13 | Hematology Progress Note ---
Assessment and Plan (1) AIHA (autoimmune hemolytic anemia) Status: Acute Current Visit: Yes (2) Anemia Status: Chronic Current Visit: Yes Hematology Subjective PN Interval history: Mr. Mota hemoglobin has dropped to 7.1 today. We are still awaiting 2 units of packed red cells to be properly matched. It is a difficult situation given his antibody from his hemolytic anemia. I spoke with blood bank this morning and they have 2 units in [place] that will be a good match for him. They are currently following these as we speak and should be here by midmorning I am told. We will continue his steroids. He is to remain in the hospital at least another day to make sure he responds to a transfusion. Given his recent coronary stent placement, he is at high risk for further cardiac events if we do not get some red cells transfused. He had significant chest pain yesterday that I think was demand ischemia. He is now on supplemental oxygen and I encouraged him to try not to exert himself much at all today. We will recheck a hemoglobin in the morning. I also check a haptoglobin and reticulocyte count. Exam - Constitutional Vitals: Period Temp Pulse Resp BP Sys/Dunn Pulse Ox Last 24 Hr 97.2 F-98.9 F 75-110 16-20 105-174/50-88 95-99 General appearance: normal weight, no acute distress - Head Head Exam: Present: normocephalic, atraumatic - Eye Eye Exam: Present: EOMI Pupils: Present: PERRL - ENT ENT exam: Present: normal exam, normal oropharynx - Neck Neck exam: Absent: lymphadenopathy, thyromegaly - Respiratory Respiratory exam: Present: CTAB. Absent: wheezes - Cardiovascular Cardiovascular exam: Present: RRR. Absent: JVD, systolic murmur - GI/Abdominal GI/Abdominal exam: Present: soft. Absent: ascites, distended, mass - Neurological Exam Neurological exam: Present: alert, oriented X3 - Psychiatric Psychiatric exam: Present: normal affect, normal mood - Skin Skin exam: Present: warm, dry Results - Labs CBC & BMP: 07/15/17 04:50 07/15/17 04:50 Lab Results: I have reviewed the past 24 hour labs Quality Measures - VTE Contraindication to Pharmacological VTE Prophylaxis: High Risk of Bleeding Specialty Discharge - Follow Up or Referrals
[2017-07-15] MEDS ORDERED: methylPREDNISolone SOD SUC 40 MG/1 ML VIAL IV ONE (08:16)
[2017-07-15] MEDS: QUINAPRIL 5 MG TABLET PO SCH (10:22)
[2017-07-15] MEDS: SPIRONOLACTONE 25 MG TABLET PO SCH (10:22)
[2017-07-15] MEDS: HYOSCYAMINE 0.125 MG TABLET PO SCH ×2 (10:24→22:25)
[2017-07-15] MEDS: GABAPENTIN 600 MG TABLET PO SCH ×2 (10:24→22:26)
[2017-07-15] MEDS: CARVEDILOL 12.5 MG TABLET PO SCH ×2 (10:24→22:26)
[2017-07-15] MEDS: GEMFIBROZIL 600 MG TABLET PO SCH ×2 (10:24→22:26)
[2017-07-15] MEDS: ASPIRIN CHEW 81 MG TABLET PO SCH (10:24)
[2017-07-15] MEDS: amLODIPine 5 MG TABLET PO SCH (10:25)
[2017-07-15] MEDS: INSULIN ASPART PROTAMINE/ASPART 70/30 100 UNIT/ML SUBCUT SCH ×2 (10:25→22:27)
[2017-07-15] MEDS: FAMOTIDINE 20 MG TABLET PO SCH (10:26)
[2017-07-15] MEDS: CLOPIDOGREL 75 MG TABLET PO SCH (10:27)
[2017-07-15] MEDS: predniSONE 20 MG TABLET PO SCH ×2 (10:27→22:26)
[2017-07-15] MEDS: CILOSTAZOL 50 MG TABLET PO SCH ×2 (10:27→22:26)
[2017-07-15] MEDS: SERTRALINE 100 MG TABLET PO SCH (10:28)
[2017-07-15] MEDS: PANTOPRAZOLE 40 MG TABLET PO SCH (10:28)
--- NOTE | 2017-07-15 11:45 | Cardiology Progress Note ---
Assessment and Plan - Time spent with patient Time spent with patient: Greater than 30 minutes (1) Morbid obesity Status: Chronic Assessment and plan: SEE PLAN OF CARE LISTED BELOW Current Visit: Yes (2) Anemia Status: Acute Assessment and plan: SEE PLAN OF CARE LISTED BELOW Current Visit: Yes (3) Diabetes mellitus Status: Chronic Assessment and plan: SEE PLAN OF CARE LISTED BELOW Current Visit: Yes (4) Essential hypertension Status: Chronic Assessment and plan: SEE PLAN OF CARE LISTED BELOW Current Visit: Yes (5) Chest pain Status: Resolved Assessment and plan: SEE PLAN OF CARE LISTED BELOW Current Visit: Yes (6) Obstructive sleep apnea Status: Chronic Assessment and plan: SEE PLAN OF CARE LISTED BELOW Current Visit: No (7) Coronary artery disease Status: Chronic Assessment and plan: SEE PLAN OF CARE LISTED BELOW Current Visit: Yes Qualifiers: Coronary Disease-Associated Artery/Lesion type: [place] artery [place] vs. transplanted heart: [place] heart (8) Dyslipidemia Status: Chronic Assessment and plan: SEE PLAN OF CARE LISTED BELOW Current Visit: Yes (9) NSTEMI (non-ST elevated myocardial infarction) Status: Acute Assessment and plan: SEE PLAN OF CARE LISTED BELOW Current Visit: Yes Cardiology - PN: Subj Interval history: PROPERTY MANAGEMENT ASSISTANT: DR. MENA PCP: DR. SHERYL CLEMONS SUMMARY: Mr. Mota, 62WM, with risk factors significant for: Known CAD (S/P PCI mid-RCA with JANET, PCI mid-LAD with JANET July 05, 2017), hypertension, dyslipidemia, diabetes, obesity, sedentary lifestyle. Patient underwent stenting (listed above) for chest pain and shortness of breath over the . Patient continued to have chest pain and shortness of breath post procedure but did not want to return to the [employer]. He was discharged home and continued to have symptoms concerning for angina. He will return to the emergency department July 12, 2017. He urgently underwent cardiac catheterization performed by Dr. Mena which revealed patent stents without new obstructive disease. He was also found to be anemic, unchanged from prior hospitalization. However, given his symptoms of chest pain and shortness of breath, it was felt that his anemia may be more severe than originally thought. Gastroenterology was consulted and patient underwent EGD this morning. No active bleeding source noted. Stool for occult blood negative. 2 units of packed red blood cells were ordered for transfusion. 2016: Patient did not get transfusion as the patient has a warm antibody making it difficult to locate packed red blood cells. However, this afternoon 2 units have been located. Dr. Gannon has asked that hematology be consulted for evaluation and management of this transfusion today. May need preoperative preparation and will defer to hematology. Hopefully, if transfusion is uneventful overnight, he may be eligible for discharge tomorrow. Patient's cardiac biomarkers were mildly elevated likely related to demand ischemia related to his anemia therefore will be diagnosed with NSTEMI. Appreciate Dr. Ladd seeing patient for his severe sleep apnea. 2016: Mr. Mota continues to be asymptomatic with minimal exertion. Walking to the bathroom and back causes chest pain and shortness of breath. With a great difficulty in locating 2 units of packed red blood cells compatible with his blood type and antibodies. Hopefully, he will be transfused this afternoon. Dr. Burnham has seen patient believes he may have autoimmune hemolytic anemia. He is being treated with steroids accordingly. Blood glucose levels are beginning to rise significantly after treatment with steroids. Will consult his primary care provider, Dr. Sheryl Clemons, for assistance in management of such. Will need a CT scan and labs outpatient per Dr. Burnham to rule out underlying malignancy. Blood pressure slightly elevated as his heart rate. Will increase beta-blockade beginning with this evening's dose. 2016: I personally contacted the blood bank myself as did Dr. Burnham. It is believed to units which would be compatible with Mr. Mota's blood type and antibodies have been located and should be arriving today. Overnight, he continued to have chest pain shortness of breath with exertion. This morning, patient has been in the shower and did so without complaints of angina. Hemoglobin and hematocrit have decreased somewhat overnight with continue to follow closely. Vital signs are stable at this point. Blood glucose still suboptimally controlled. Will consult Dr. Sheryl Clemons, primary care provider, for treatment of elevated blood glucose levels in the setting of steroids. Suspect patient will require steroids for a length of time. Hopefully, once patient is transfused, will be eligible for discharge. Will further discuss with Dr. Taylor and await additional recommendations. IMPRESSION/PLAN: 1. NSTEMI - secondary to demand ischemia related to anemia. Cardiac catheterization revealed no new obstructive disease. VQ lung scan reveals low probability of PE. Continue Aspirin, Plavix, Pletal, beta-karel, RODERICK inhibitor, Lopid, Atorvastatin. 2. KNOWN CAD - recent cardiac catheterization requiring PCI to mid LAD, PCI to RCA. Compliant with medications. 3. HYPERTENSION - improved after increasing beta-karel. Continue to monitor closely. 4. DYSLIPIDEMIA - LDL 46. Continue lipid-lowering agent, Lopid. 5. DIABETES - with the addition of steroids, blood glucose levels are climbing. Will consult Dr. Clemons for assistance. 6. ANEMIA - stool for occult blood negative. Thought to be autoimmune hemolytic anemia. Steroids have been initiated 7. MORBID OBESITY - dietary counseling prior to discharge 8. FELIPA - compliant with sleep device. Appreciate Dr. Ladd's assistance. Exam (Progress Note) - Constitutional Vitals: Period Temp Pulse Resp BP Sys/Dunn Pulse Ox Last 24 Hr 97.2 F-98.9 F 67-110 16-20 105-174/50-88 95-99 Exam: General: [Appears well with no apparent distress.] [Pleasant and cooperative. ] [Appears comfortable.] HEENT: [PERRL, normocephalic, atraumatic. Mucous membranes moist. No jaundice noted. Conjunctiva moist and clear, sclerae anicteric] Neck: Unable to assess for JVD due to habitus. No thyromegaly or lymphadenopathy noted. No carotid bruit appreciated Cardiac: [Regular rate and rhythm.] [No obvious murmur rub or gallop.] PMI is nondisplaced. Lungs: [Clear to auscultation without accessory muscle use to assist the respiratory pattern.] Using CPAP device intermittently Abdomen: Soft, bowel sounds normoactive. Nontender and nondistended. No abdominal bruit or thrill noted. No masses noted. Musculoskeletal: No fluid collection. Decreased range of motion is noted. Extremities: Right groin soft, free of hematoma or bruit. No clubbing, cyanosis noted. [ No edema noted.] Upper extremity pulses 2+. Lower extremity pulses 2+. Capillary refill less than 3 seconds. Skin: No unusual lesions or rashes. No skin breakdown appreciated. Neuro: Awake, alert and oriented 3. Moves all extremities well without hemiparesis or paralysis. No essential tremor is appreciated. Result/EKG - Labs CBC & BMP: 07/15/17 04:50 07/15/17 04:50 Lab Results: I have reviewed the past 24 hour labs Labs: Laboratory Results - last 24 hr 07/12/17 07/14/17 07/14/17 12:39 14:56 20:53 WBC RBC Hgb Hct MCV MCH MCHC RDW Plt Count MPV Neut % (Auto) Lymph % (Auto) [place] % (Auto) Eos % (Auto) Baso % (Auto) Neut # (Auto) Lymph # (Auto) [place] # (Auto) Eos # (Auto) Baso # (Auto) Total Counted Immature Gran % Nucleated RBC % Immature Gran # Segmented Neutrophils Lymphocytes Monocytes Nucleated RBCs # Platelet Estimate Immature Plt Fraction Polychromasia Anisocytosis Microcytosis Morphology Comment Sodium Potassium Chloride Carbon Dioxide Anion Gap BUN Creatinine GFR Calculation BUN/Creatinine Ratio Glucose POC Glucose 473 H 397 H Calculated Osmolality Calcium Magnesium Crossmatch See Detail 07/15/17 07/15/17 07/15/17 04:50 04:50 07:13 WBC 12.8 H RBC 2.27 L Hgb 7.2 L Hct 21.3 L MCV 93.8 MCH 32 MCHC 33.8 RDW 23.2 H Plt Count 134 MPV 11.3 Neut % (Auto) 77.8 H Lymph % (Auto) 12.1 L Sharp % (Auto) 7.3 Eos % (Auto) 0.2 Baso % (Auto) 0.2 Neut # (Auto) 10.0 H Lymph # (Auto) 1.6 Sharp # (Auto) 0.9 H Eos # (Auto) 0.0 Baso # (Auto) 0.0 Total Counted 100 Immature Gran % 2.4 Nucleated RBC % 0.9 Immature Gran # 0.31 Segmented Neutrophils 80 Lymphocytes 12 L Monocytes 8 Nucleated RBCs # 0.12 Platelet Estimate Adequate Immature Plt Fraction 0.0 Polychromasia Slight Anisocytosis 1+ Microcytosis 1+ Morphology Comment Sodium 138 Potassium 4.7 Chloride 104 Carbon Dioxide 27 Anion Gap 11.7 BUN 34 H Creatinine 1.60 H GFR Calculation 59 BUN/Creatinine Ratio 21.00 H Glucose 254 H POC Glucose 225 H Calculated Osmolality 291.7 Calcium 8.7 Magnesium 2.7 H Crossmatch - EKG EKG results: interpreted by me EKG shows: tachycardia, sinus rhythm Quality Measures - VTE Contraindication to Pharmacological VTE Prophylaxis: High Risk of Bleeding Specialty Discharge - Follow Up or Referrals
[2017-07-16 00:53] LABS: Basophils % 0.3 % (0.0-0.8); Eosinophils % 0.1 % (0.00-10.9); Hematocrit 24.5 VOL% (42.0-52.0); Hemoglobin 8.2 GM/DL (14.0-18.0); Immature Granulocytes % 4.2 %; Immature Granulocytes Absolute 0.49 #; Lymphocytes % 8.8 % (21.2-54.2); Mean Corpuscular HGB Conc 33.5 GM/DL (32-36); Mean Corpuscular Hemoglobin 31 PG (27-34); Mean Corpuscular Volume 91.1 FL (87-102); Mean Platelet Volume 11.9 FL (9.6-12.0); Monocytes # 0.5 10*3/uL (0.11-0.8); Monocytes % 4.3 % (1.7-12.7); NRBC # 0.13 10*3/uL; Neutrophils # 9.6 10*3/uL (1.4-7.4); Neutrophils % 82.3 % (38.7-73.9); Platelet Count 127 T/CUMM (130-400); Red Blood Count 2.69 MC/CUMM (3.8-5.5); Red Cell Distribution Width 21.2 % (9.3-17.3); White Blood Count 11.6 T/CUMM (4-12)
[2017-07-16 01:20] LABS: Calcium 8.3 MG/DL (8.5-10.1); Magnesium 2.6 MG/DL (1.8-2.4); Osmolality,Calculated 296.8 MOS/KG (273-304); Potassium 4.3 MMOL/L (3.5-5.1)
[2017-07-16 01:29] LABS: Haptoglobin < 8.0 MG/DL (30-200)
[2017-07-16] MEDS: NITROGLYCERIN 2% OINT 1 INCH/GM PACK TOP SCH ×4 (05:10→17:18)
--- NOTE | 2017-07-16 08:35 | Consultation ---
Assessment and Plan (1) Hemolytic anemia Status: Acute Assessment and plan: 07/16/2017: Patient been started on prednisone. Hematocrit this morning is 20 four-point 2:05 units packed red blood cells Current Visit: Yes (2) Diabetes mellitus Status: Chronic Assessment and plan: 07/16/2017: We will increase patient's basal insulin and follow him in the office next week. Current Visit: Yes (3) Atypical chest pain Status: Acute Current Visit: Yes History of Present Illness - Consult Narrative Reason for consult: Management of diabetes History of present illness: Mr. Mota is a 62 year old male CC: Toni Mena MD - Home Medications and Allergies Home Medications: Home Medications Medication Instructions Recorded Confirmed Type Amlodipine Besylate 5 mg PO DAILY 05/01/15 07/12/17 History Atorvastatin [Lipitor] 10 mg PO DAILY 05/01/15 07/12/17 History Gabapentin 600 mg PO BID 05/01/15 07/12/17 History Gemfibrozil 600 mg PO BID 05/01/15 07/12/17 History Insulin Aspart Prot/Asp 70/30 90 unit SUBCUT BID 05/01/15 07/12/17 History [NovoLOG Mix 70/30] Omeprazole 20 mg PO DAILY 05/01/15 07/12/17 History Quinapril [Accupril] 10 mg PO DAILY 05/01/15 07/12/17 History Sertraline [Zoloft] 100 mg PO DAILY 05/01/15 07/12/17 History metFORMIN [Glucophage] 1,000 mg PO BID W/MEALS 05/01/15 07/12/17 History Aspirin Chew Tab 81 mg PO DAILY tablet 08/07/15 07/12/17 Rx Carvedilol [Coreg] 6.25 mg PO BID #60 tablet 08/07/15 07/12/17 Rx Cilostazol [Pletal] 50 mg PO BID #60 tablet 08/07/15 07/12/17 Rx Furosemide Tab [Lasix Tab] 20 mg PO DAILY #30 tablet 08/07/15 07/12/17 Rx Nitroglycerin Sl Tab [Nitrostat] 0.4 mg SL Q5M PRN #25 tablet 08/07/15 07/12/17 Rx Clopidogrel [Plavix] 75 mg PO DAILY #30 tablet 08/01/16 07/12/17 Rx Insulin Degludec [Tresiba 34 units SUBCUT BEDTIME 07/03/17 07/12/17 History Flextouch U-100] Ranitidine Tab [Zantac Tab] 1 tablet PO DAILY 07/03/17 07/12/17 History Allergies/Adverse Reactions: Allergies Allergy/AdvReac Type Severity Reaction Status Date / Time No Known Allergies Allergy Verified 07/12/17 09:50 - Constitutional Constitutional: Present: fatigue, weakness. Absent: chills, fever(s) - EENT Eyes: Absent: blurry vision, loss of vision Ears: Absent: decreased hearing, ear pain Nose, mouth and throat: Absent: sinus pressure, sore throat - Cardiovascular Cardiovascular: Present: chest pain at rest. Absent: dyspnea, orthopnea, palpitations - Respiratory Respiratory: Absent: cough, dyspnea, wheezing - Gastrointestinal Gastrointestinal: Absent: abdominal pain, diarrhea, dyspepsia, dysphagia, nausea , vomiting - Genitourinary Genitourinary: Absent: difficulty urinating, flank pain, hematuria, urinary frequency - Musculoskeletal Musculoskeletal: Absent: back pain - Neurological Neurological: Absent: confusion, focal weakness, numbness, paresthesias - Psychiatric Psychiatric: Absent: anxiety, confusion - Endocrine Endocrine: Absent: fatigue, polydipsia, polyphagia - Hematologic/Lymphatic Hematologic/Lymphatic: Absent: easy bleeding, easy bruising Medical,Surgical,& Family Hx - Medical History Cardio: History of: CAD, Hypertension No history of: CHF, [place] Psychological: History of: Anxiety Disorders Neurology: No history of: Seizures HEENT: History of: Eye Problem (cherelle cataract) Endocrine: History of: Diabetes Mellitus (IDDM) (novolog sq), Diabetes Mellitus (NIDDM), Dyslipidemia Respiratory: History of: Obstructive Sleep Apnea (uses CPAP) Gastrointestinal: History of: GERD, GI Problems Musculoskeletal: History of: Back/Neck Problems Hematology: History of: Anemia - Surgical History Cardiac Surgeries: Sugical HX of: Cardiac Catheterization (2014,2016 Stents x2) , Carotid Endarterectomy HEENT Surgeries: Surgical HX of: Carotid Endarterectomy, Eye Surgery (CATARACT LT FOR RT 05/21/15) Patient denies: Tonsilectomy & Adenoidectomy Abdominal Surgeries: Surgical HX of: Abdominal Surgery (TO REPLACE NAVAL) Orthopedic Surgeries: Surgical HX of;: Spinal Surgery (2 CERVICAL DISC REMOVED) - Family History Family History: Reports;: Family Hypertension (father), Family Stroke (father) - Social History Smoking Status: Former smoker Frequency of Alcohol Use: None Type of Drug Use: None Exam - Constitutional Vitals: Period Temp Pulse Resp BP Sys/Dunn Pulse Ox Last 24 Hr 97.1 F-98.9 F 63-84 16-20 119-152/50-83 91-100 Exam: General: Objective patient is a well-developed white male in no acute distress. Patient is articulate and able to give an excellent history. HEENT: Pupils equal and reactive to light. Patent nares and airway Neck: No meningismus, adenopathy, thyromegaly. There are no auscultated carotid bruits. Cardiovascular: Regular rhythm. No murmurs or gallops Chest: Clear to auscultation without rales rhonchi wheezes. Abdomen: Soft nontender to palpation No masses, rebound, guarding or tenderness. Neuro: Cranial nerves intact and DTRs and strength symmetric in all extremities. Dermatologic: No evidence of abnormal lesions or masses. Musculoskeletal: There is no joint swelling or tenderness or deformity. Extremities: There is no calf swelling or tenderness. Results - Labs CBC & BMP: 07/16/17 00:16 07/16/17 00:16 Lab Results: I have reviewed the past 24 hour labs Quality Measures - VTE Contraindication to Pharmacological VTE Prophylaxis: High Risk of Bleeding Specialty Discharge - Follow Up or Referrals
[2017-07-16] MEDS ORDERED: SODIUM CHLORIDE 0.9% 250 ML IV PRN (08:55)
--- NOTE | 2017-07-16 08:55 | Hematology Progress Note ---
Assessment and Plan - Time spent with patient Time spent with patient: Greater than 30 minutes (1) AIHA (autoimmune hemolytic anemia) Status: Acute Current Visit: Yes (2) Anemia Status: Acute Current Visit: Yes Hematology Subjective PN Interval history: Mr. Mota is doing well today. His hemoglobin did respond to 2 units of packed red cells yesterday but it only addison to 8.2. His reticulocyte count remains elevated and his haptoglobin level is low. He is still having active hemolysis based on these findings. I will ask blood bank if we can find 2 more units of blood. Regardless of whether we find more blood or not he needs to be monitored for at least another day or 2 to be certain that his hemoglobin does not fall back down. Given his recent coronary stent placement, I do not think he would tolerate hemoglobin levels much below 8 as we saw her earlier this week when he was around 7. We will continue steroids. Hopefully we will see an improvement in his analysis over the next day or 2. Exam - Constitutional Vitals: Period Temp Pulse Resp BP Sys/Dunn Pulse Ox Last 24 Hr 97.1 F-98.9 F 63-84 16-20 119-152/50-83 91-100 General appearance: normal weight, no acute distress - Head Head Exam: Present: normocephalic, atraumatic - Eye Eye Exam: Present: EOMI Pupils: Present: PERRL - ENT ENT exam: Present: normal exam, normal oropharynx - Neck Neck exam: Absent: lymphadenopathy, thyromegaly - Respiratory Respiratory exam: Present: CTAB. Absent: wheezes - Cardiovascular Cardiovascular exam: Present: RRR. Absent: JVD, systolic murmur - GI/Abdominal GI/Abdominal exam: Present: soft. Absent: ascites, distended, mass - Neurological Exam Neurological exam: Present: alert, oriented X3 - Psychiatric Psychiatric exam: Present: normal affect, normal mood - Skin Skin exam: Present: warm, dry Results - Labs CBC & BMP: 07/16/17 00:16 07/16/17 00:16 Lab Results: I have reviewed the past 24 hour labs Quality Measures - VTE Contraindication to Pharmacological VTE Prophylaxis: High Risk of Bleeding Specialty Discharge - Follow Up or Referrals
[2017-07-16] MEDS: GABAPENTIN 600 MG TABLET PO SCH ×2 (09:17→21:30)
[2017-07-16] MEDS: CILOSTAZOL 50 MG TABLET PO SCH ×2 (09:18→21:30)
[2017-07-16] MEDS: CARVEDILOL 12.5 MG TABLET PO SCH ×2 (09:18→21:30)
[2017-07-16] MEDS: ASPIRIN CHEW 81 MG TABLET PO SCH (09:18)
[2017-07-16] MEDS: GEMFIBROZIL 600 MG TABLET PO SCH ×2 (09:18→21:29)
[2017-07-16] MEDS: SPIRONOLACTONE 25 MG TABLET PO SCH (09:18)
[2017-07-16] MEDS: CLOPIDOGREL 75 MG TABLET PO SCH (09:18)
[2017-07-16] MEDS: HYOSCYAMINE 0.125 MG TABLET PO SCH ×2 (09:18→21:30)
[2017-07-16] MEDS: FAMOTIDINE 20 MG TABLET PO SCH (09:18)
[2017-07-16] MEDS: amLODIPine 5 MG TABLET PO SCH (09:18)
[2017-07-16] MEDS: INSULIN REGULAR 100 UNIT/ML SUBCUT SCH ×4 (09:19→21:28)
[2017-07-16] MEDS: predniSONE 20 MG TABLET PO SCH ×2 (09:19→21:29)
[2017-07-16] MEDS: SERTRALINE 100 MG TABLET PO SCH (09:19)
[2017-07-16] MEDS: INSULIN ASPART PROTAMINE/ASPART 70/30 100 UNIT/ML SUBCUT SCH ×2 (09:19→21:28)
[2017-07-16] MEDS: PANTOPRAZOLE 40 MG TABLET PO SCH (09:19)
[2017-07-16] MEDS: QUINAPRIL 5 MG TABLET PO SCH (09:20)
[2017-07-16] MEDS: FOLIC ACID 1 MG TABLET PO SCH (09:22)
[2017-07-16] MEDS ORDERED: ALUMINUM/MAGNES/SIMETH MAX STR 30 ML UDCUP PO PRN (11:14)
--- NOTE | 2017-07-16 13:02 | Cardiology Progress Note ---
Assessment and Plan - Time spent with patient Time spent with patient: Greater than 30 minutes (1) Morbid obesity Status: Chronic Assessment and plan: SEE PLAN OF CARE LISTED BELOW Current Visit: Yes (2) Anemia Status: Acute Assessment and plan: SEE PLAN OF CARE LISTED BELOW Current Visit: Yes (3) Diabetes mellitus Status: Chronic Assessment and plan: SEE PLAN OF CARE LISTED BELOW Current Visit: Yes (4) Essential hypertension Status: Chronic Assessment and plan: SEE PLAN OF CARE LISTED BELOW Current Visit: Yes (5) Chest pain Status: Resolved Assessment and plan: SEE PLAN OF CARE LISTED BELOW Current Visit: Yes (6) Obstructive sleep apnea Status: Chronic Assessment and plan: SEE PLAN OF CARE LISTED BELOW Current Visit: No (7) Coronary artery disease Status: Chronic Assessment and plan: SEE PLAN OF CARE LISTED BELOW Current Visit: Yes Qualifiers: Coronary Disease-Associated Artery/Lesion type: [place] artery [place] vs. transplanted heart: [place] heart (8) Dyslipidemia Status: Chronic Assessment and plan: SEE PLAN OF CARE LISTED BELOW Current Visit: Yes (9) NSTEMI (non-ST elevated myocardial infarction) Status: Resolved Assessment and plan: SEE PLAN OF CARE LISTED BELOW Current Visit: Yes Cardiology - PN: Subj Interval history: TIMEKEEPER: DR. LEE PCP: DR. SHERYL CLEMONS SUMMARY: Mr. Mota, 62WM, with risk factors significant for: Known CAD (S/P PCI mid-RCA with JANET, PCI mid-LAD with JANET July 05, 2017), hypertension, dyslipidemia, diabetes, obesity, sedentary lifestyle. Presented to emergency department July 12, 2017 with complaints concerning for angina. He had recently undergone coronary stenting July 03, 2017 for similar symptoms. He was returned to the cardiac catheterization lab where patent stents without new obstructive disease was noted. He was found to be significantly anemic and Dr. Burnham was consulted. He was diagnosed with autoimmune hemolytic anemia. Steroids initiated. 2 units of packed red blood cells ordered however it took 72 hours in order to locate compatible blood as the patient has warm antibodies and rare antibodies. Finally, 2 units were located and he was transfused for hemoglobin and hematocrit of 7.2 and 21.3 respectively. After transfusion his H and H increased to 8.2 and 24.5. July 16, 2017: Patient's symptoms improved yet he remains short of breath with exertion. 2 additional units of packed red blood cells have been located and will be arriving tomorrow around noon. Dr. Burnham prefers to keep patient overnight for transfusion tomorrow and possibly discharge tomorrow evening. Steroids continue. Appreciate Dr. Sheryl Clemons assistance with management of his blood glucose levels which were beginning to ride with the addition of steroids. At discharge, Dr. Burnham has requested an outpatient CT scan and labs to rule out underlying malignancy. Creatinine is elevated today at 1.6 suspect this is related to his hypoperfusion/volume depletion. Will follow BMP in the morning. I will further discuss with Dr. Gannon and await additional recommendations. IMPRESSION/PLAN: 1. NSTEMI - secondary to demand ischemia related to anemia. Cardiac catheterization revealed no new obstructive disease. VQ lung scan reveals low probability of PE. Continue Aspirin, Plavix, Pletal, beta-karel, RODERICK inhibitor, Lopid, Atorvastatin. 2. KNOWN CAD - recent cardiac catheterization requiring PCI to mid LAD, PCI to RCA. Compliant with medications. 3. HYPERTENSION - improved after increasing beta-karel. Continue to monitor closely. 4. DYSLIPIDEMIA - LDL 46. Continue lipid-lowering agent, Lopid. 5. DIABETES - with the addition of steroids, blood glucose levels are climbing. Dr. Clemons is managing. 6. ANEMIA - stool for occult blood negative. Thought to be autoimmune hemolytic anemia. Steroids have been initiated 7. MORBID OBESITY - dietary counseling prior to discharge 8. FELIPA - compliant with sleep device. Appreciate Dr. Ldad's assistance. Exam (Progress Note) - Constitutional Vitals: Period Temp Pulse Resp BP Sys/Dunn Pulse Ox Last 24 Hr 97.1 F-98.9 F 63-84 16-20 119-152/55-83 92-100 Exam: General: [Appears well with no apparent distress.] [Pleasant and cooperative. ] [Appears comfortable.] HEENT: [PERRL, normocephalic, atraumatic. Mucous membranes moist. No jaundice noted. Conjunctiva moist and clear, sclerae anicteric] Neck: Unable to assess for JVD due to habitus. No thyromegaly or lymphadenopathy noted. No carotid bruit appreciated Cardiac: [Regular rate and rhythm.] [No obvious murmur rub or gallop.] Lungs: [Clear to auscultation without accessory muscle use to assist the respiratory pattern.] Using CPAP device intermittently Abdomen: Soft, bowel sounds normoactive. Nontender and nondistended. No abdominal bruit or thrill noted. No masses noted. Musculoskeletal: No fluid collection. Decreased range of motion is noted. Extremities: Right groin soft, free of hematoma or bruit. No clubbing, cyanosis noted. [ No edema noted.] Upper extremity pulses 2+. Lower extremity pulses 2+. Capillary refill less than 3 seconds. Skin: No unusual lesions or rashes. No skin breakdown appreciated. Neuro: Awake, alert and oriented 3. Moves all extremities well without hemiparesis or paralysis. No essential tremor is appreciated. Result/EKG - Labs CBC & BMP: 07/16/17 00:16 07/16/17 00:16 Lab Results: I have reviewed the past 24 hour labs Labs: Laboratory Results - last 24 hr 07/14/17 07/15/17 07/15/17 Unknown 17:39 20:17 WBC RBC Hgb Hct MCV MCH MCHC RDW Plt Count MPV Neut % (Auto) Lymph % (Auto) [place] % (Auto) Eos % (Auto) Baso % (Auto) Neut # (Auto) Lymph # (Auto) [place] # (Auto) Eos # (Auto) Baso # (Auto) Immature Gran % Nucleated RBC % Immature Gran # Nucleated RBCs # Immature Plt Fraction Absolute Retic Percent Retic Retic Hgb Equivalent Haptoglobin Sodium Potassium Chloride Carbon Dioxide Anion Gap BUN Creatinine GFR Calculation BUN/Creatinine Ratio Glucose POC Glucose 410 H 378 H Calculated Osmolality Calcium Magnesium Lactate Dehydrogenase Blood Type O POSITIVE Antibody Screen Positive Antibody Identification Warm Auto Antibody Crossmatch See Detail 07/16/17 07/16/17 07/16/17 00:16 00:16 00:16 WBC 11.6 RBC 2.69 L Hgb 8.2 L Hct 24.5 L MCV 91.1 MCH 31 MCHC 33.5 RDW 21.2 H Plt Count 127 L MPV 11.9 Neut % (Auto) 82.3 H Lymph % (Auto) 8.8 L [place] % (Auto) 4.3 Eos % (Auto) 0.1 Baso % (Auto) 0.3 Neut # (Auto) 9.6 H Lymph # (Auto) 1.0 L [place] # (Auto) 0.5 Eos # (Auto) 0.0 Baso # (Auto) 0.0 Immature Gran % 4.2 Nucleated RBC % 1.1 Immature Gran # 0.49 Nucleated RBCs # 0.13 Immature Plt Fraction 0.0 Absolute Retic 0.3 Percent Retic 12.9 H Retic Hgb Equivalent 32.6 Haptoglobin Sodium 137 Potassium 4.3 Chloride 103 Carbon Dioxide 24 Anion Gap 14.3 BUN 39 H Creatinine 1.60 H GFR Calculation 59 BUN/Creatinine Ratio 24.00 H Glucose 374 H POC Glucose Calculated Osmolality 296.8 Calcium 8.3 L Magnesium 2.6 H Lactate Dehydrogenase Blood Type Antibody Screen Antibody Identification Crossmatch 07/16/17 07/16/17 07/16/17 00:16 07:29 11:32 WBC RBC Hgb Hct MCV MCH MCHC RDW Plt Count MPV Neut % (Auto) Lymph % (Auto) [place] % (Auto) Eos % (Auto) Baso % (Auto) Neut # (Auto) Lymph # (Auto) [place] # (Auto) Eos # (Auto) Baso # (Auto) Immature Gran % Nucleated RBC % Immature Gran # Nucleated RBCs # Immature Plt Fraction Absolute Retic Percent Retic Retic Hgb Equivalent Haptoglobin < 8.0 L Sodium Potassium Chloride Carbon Dioxide Anion Gap BUN Creatinine GFR Calculation BUN/Creatinine Ratio Glucose POC Glucose 320 H 274 H Calculated Osmolality Calcium Magnesium Lactate Dehydrogenase 400 H Blood Type Antibody Screen Antibody Identification Crossmatch - EKG EKG results: interpreted by me EKG shows: sinus rhythm Quality Measures - VTE Contraindication to Pharmacological VTE Prophylaxis: High Risk of Bleeding Specialty Discharge - Follow Up or Referrals Follow up with: Sheryl Clemons MD [Physician] - 07/26/17 9:45 am
[2017-07-16] MEDS: ATORVASTATIN 10 MG TABLET PO SCH (21:29)
[2017-07-17] MEDS: NITROGLYCERIN 2% OINT 1 INCH/GM PACK TOP SCH ×4 (01:13→17:17)
[2017-07-17 06:08] LABS: Basophils % 0.2 % (0.0-0.8); Eosinophils % 0.3 % (0.00-10.9); Hematocrit 23.7 VOL% (42.0-52.0); Hemoglobin 8.1 GM/DL (14.0-18.0); Immature Granulocytes % 7.3 %; Immature Granulocytes Absolute 0.84 #; Lymphocytes # 1.4 10*3/uL (1.4-4.0); Lymphocytes % 11.9 % (21.2-54.2); Mean Corpuscular HGB Conc 34.2 GM/DL (32-36); Mean Corpuscular Hemoglobin 31 PG (27-34); Mean Corpuscular Volume 91.5 FL (87-102); Mean Platelet Volume 12.3 FL (9.6-12.0); Monocytes # 0.8 10*3/uL (0.11-0.8); Monocytes % 6.9 % (1.7-12.7); NRBC # 0.29 10*3/uL; Neutrophils # 8.5 10*3/uL (1.4-7.4); Neutrophils % 73.4 % (38.7-73.9); Platelet Count 121 T/CUMM (130-400); Red Blood Count 2.59 MC/CUMM (3.8-5.5); White Blood Count 11.5 T/CUMM (4-12)
[2017-07-17 06:40] LABS: Magnesium 2.6 MG/DL (1.8-2.4); Osmolality,Calculated 294.5 MOS/KG (273-304); Potassium 4.5 MMOL/L (3.5-5.1)
[2017-07-17 08:10] LABS: Band Neutrophils 4 % (0-10); Lymphocytes 11 % (20-55); Macrocytosis 1+; Platelet Estimate Adequate; Polychromasia Slight; Segmented Neutrophils 81 % (50-85); Target Cells Slight; Total Cells Counted 100
--- NOTE | 2017-07-17 08:15 | Family Practice Progress Note ---
Family Practice - PN: Subj Interval history: Patient seen this morning slept well last night with his BiPAP machine. He is still a little anemic with an H&H of 8.1 and 23.7. He is scheduled to get 2 more units of blood (states the first 2 units helped him quite a bit). His blood sugar still elevated in the 300 range. I am going to restart his metformin and just watch his creatinine. I will put him on lower dose of 500 mg daily as opposed to what he was taking at home, 1000 mg twice daily. Exam (Progress Note) - Constitutional Vitals: Period Temp Pulse Resp BP Sys/Dunn Pulse Ox Last 24 Hr 97.3 F-99.1 F 56-84 16-20 113-135/49-71 98-100 Exam: Exam is generally normal. He is moderately obese and uses a CPAP HEENT neck is supple trachea midline Cardiovascular rate is regular no gallop or rub Lungs generally clear Abdomen soft nondistended Results - Labs CBC & BMP: 07/17/17 05:00 07/17/17 05:00 Quality Measures - VTE Contraindication to Pharmacological VTE Prophylaxis: High Risk of Bleeding Specialty Discharge - Follow Up or Referrals Follow up with: Marvel Cerrato MD [Physician] - 07/26/17 9:45 am
[2017-07-17] MEDS ORDERED: predniSONE 10 MG TABLET ONE (08:20)
[2017-07-17] MEDS: CILOSTAZOL 50 MG TABLET PO SCH ×2 (09:30→21:39)
[2017-07-17] MEDS: ASPIRIN CHEW 81 MG TABLET PO SCH (09:30)
[2017-07-17] MEDS: QUINAPRIL 5 MG TABLET PO SCH (09:30)
[2017-07-17] MEDS: GEMFIBROZIL 600 MG TABLET PO SCH ×2 (09:30→21:39)
[2017-07-17] MEDS: PANTOPRAZOLE 40 MG TABLET PO SCH (09:31)
[2017-07-17] MEDS: HYOSCYAMINE 0.125 MG TABLET PO SCH ×2 (09:31→21:39)
[2017-07-17] MEDS: CLOPIDOGREL 75 MG TABLET PO SCH (09:31)
[2017-07-17] MEDS: amLODIPine 5 MG TABLET PO SCH (09:31)
[2017-07-17] MEDS: SPIRONOLACTONE 25 MG TABLET PO SCH (09:31)
[2017-07-17] MEDS: SERTRALINE 100 MG TABLET PO SCH (09:31)
[2017-07-17] MEDS: predniSONE 20 MG TABLET PO SCH ×2 (09:31→21:40)
[2017-07-17] MEDS: CARVEDILOL 12.5 MG TABLET PO SCH ×2 (09:32→21:40)
[2017-07-17] MEDS: FOLIC ACID 1 MG TABLET PO SCH (09:32)
[2017-07-17] MEDS: INSULIN ASPART PROTAMINE/ASPART 70/30 100 UNIT/ML SUBCUT SCH ×2 (09:32→21:42)
[2017-07-17] MEDS: INSULIN REGULAR 100 UNIT/ML SUBCUT SCH ×4 (09:32→21:41)
[2017-07-17] MEDS: FAMOTIDINE 20 MG TABLET PO SCH (09:32)
[2017-07-17] MEDS: GABAPENTIN 600 MG TABLET PO SCH ×2 (09:32→21:39)
--- NOTE | 2017-07-17 09:41 | Hematology Progress Note ---
Assessment and Plan - Time spent with patient Time spent with patient: Greater than 30 minutes (1) AIHA (autoimmune hemolytic anemia) Status: Acute Current Visit: Yes (2) Anemia Status: Acute Current Visit: Yes Hematology Subjective PN Interval history: Mr. Mota is doing well today. His hemoglobin is stable at 8.1. I just spoke with blood bank he states his next 2 units of blood should arrive sometime shortly after lunch. He is tolerating the steroids well other than some mild hyperglycemia. Family medicine is helping manage his diabetes for us. I had a lengthy discussion with him today about plans for discharge. I told him that he should be okay to go home after the blood later today but ideally we would keep him overnight and recheck his blood counts in the morning. If he does go home today he will need labs rechecked on the early part of next week in my clinic. I can arrange this when I see that he is truly discharge. If he stays overnight we will recheck a CBC in the morning. He is agreeable to stay overnight but I will defer that decision to his primary rounding team. He denies any chest pain. He denies any shortness of breath. Hopefully the steroids will began slowing down his hemolysis very soon. Exam - Constitutional Vitals: Period Temp Pulse Resp BP Sys/Dunn Pulse Ox Last 24 Hr 97.3 F-99.1 F 56-84 16-20 113-135/49-71 98-100 General appearance: normal weight, no acute distress - Head Head Exam: Present: normocephalic, atraumatic - Eye Eye Exam: Present: EOMI Pupils: Present: PERRL - ENT ENT exam: Present: normal exam, normal oropharynx - Neck Neck exam: Absent: lymphadenopathy, thyromegaly - Respiratory Respiratory exam: Present: CTAB. Absent: wheezes - Cardiovascular Cardiovascular exam: Present: RRR. Absent: JVD, systolic murmur - GI/Abdominal GI/Abdominal exam: Present: soft. Absent: ascites, distended, mass - Neurological Exam Neurological exam: Present: alert, oriented X3 - Psychiatric Psychiatric exam: Present: normal affect, normal mood - Skin Skin exam: Present: warm, dry Results - Labs CBC & BMP: 07/17/17 05:00 07/17/17 05:00 Lab Results: I have reviewed the past 24 hour labs Quality Measures - VTE Contraindication to Pharmacological VTE Prophylaxis: High Risk of Bleeding Specialty Discharge - Follow Up or Referrals Follow up with: Marvel Cerrato MD [Physician] - 07/26/17 9:45 am
--- NOTE | 2017-07-17 11:01 | Cardiology Progress Note ---
Assessment and Plan (1) NSTEMI (non-ST elevated myocardial infarction) Status: Resolved Assessment and plan: 62-year-old male, followed by Dr. Mena. Admitted with non-STEMI, demand ischemia, severe anemia. Prior PCI, patent stent. -Per GI, no further inpatient workup needed -AIHA. Followed by hem/onc. On prednisone, got transfused. Still anemic, further transfusion is planned. -Continue aspirin, Plavix for severe CAD, which was revascularized previously and appears to be stable at this time. Unless there is an absolute contraindication, would continue dual antiplatelets, given his recent stents 2016 -Continue beta-karel -resumed statin. Normal LFTs. Elevated bilirubin was likely due to hemolysis. -If stable after transfusion today, recheck CBC in a.m., and discharge home tomorrow Current Visit: Yes (2) AIHA (autoimmune hemolytic anemia) Status: Acute Current Visit: Yes (3) Obstructive sleep apnea Status: Chronic Current Visit: Yes Cardiology - PN: Subj Interval history: He is feeling much better. No shortness of breath with ambulation. Another blood transfusion is pending for today. Exam (Progress Note) - Constitutional Vitals: Period Temp Pulse Resp BP Sys/Dunn Pulse Ox Last 24 Hr 97.3 F-99.1 F 56-84 16-20 113-135/49-71 98-100 General appearance: no acute distress, morbidly obese - Head Head exam: Present: normal inspection, normocephalic - Eye Eye exam: Absent: conjunctival injection, scleral icterus Pupils: Absent: dilated - ENT ENT exam: Present: normal external ear exam - Neck Neck exam: Present: normal inspection - Respiratory Respiratory exam: Present: clear to auscultation bilaterally. Absent: chest wall tenderness - Cardiovascular Cardiovascular exam: Present: regular rate and rhythm, systolic murmur. Absent : JVD - GI/Abdominal GI/Abdominal exam: Present: normal bowel sounds. Absent: distended - Extremities Exam Extremities exam: Present: normal inspection, normal capillary refill. Absent: edema - Back Exam Back exam: Present: normal inspection - Neurological Exam Neurological exam: Present: alert, oriented X3 - Psychiatric Psychiatric exam: Present: normal affect, normal mood - Skin Skin exam: Present: normal color, warm. Absent: cyanosis Result/EKG - Labs CBC & BMP: 07/17/17 05:00 07/17/17 05:00 Lab Results: I have reviewed the past 24 hour labs Labs: Laboratory Results - last 24 hr 07/16/17 07/16/17 07/16/17 11:32 16:19 19:56 WBC RBC Hgb Hct MCV MCH MCHC RDW Plt Count MPV Neut % (Auto) Lymph % (Auto) [place] % (Auto) Eos % (Auto) Baso % (Auto) Neut # (Auto) Lymph # (Auto) [place] # (Auto) Eos # (Auto) Baso # (Auto) Total Counted Immature Gran % Nucleated RBC % Immature Gran # Segmented Neutrophils Band Neutrophils Lymphocytes Monocytes Nucleated RBCs # Platelet Estimate Immature Plt Fraction Polychromasia Macrocytosis Target Cells Haptoglobin Sodium Potassium Chloride Carbon Dioxide Anion Gap BUN Creatinine GFR Calculation BUN/Creatinine Ratio Glucose POC Glucose 274 H 317 H 400 H Calculated Osmolality Calcium Magnesium 07/17/17 07/17/17 07/17/17 05:00 05:00 05:00 WBC 11.5 RBC 2.59 L Hgb 8.1 L Hct 23.7 L MCV 91.5 MCH 31 MCHC 34.2 RDW 22.0 H Plt Count 121 L MPV 12.3 H Neut % (Auto) 73.4 Lymph % (Auto) 11.9 L [place] % (Auto) 6.9 Eos % (Auto) 0.3 Baso % (Auto) 0.2 Neut # (Auto) 8.5 H Lymph # (Auto) 1.4 [place] # (Auto) 0.8 Eos # (Auto) 0.0 Baso # (Auto) 0.0 Total Counted 100 Immature Gran % 7.3 Nucleated RBC % 2.5 Immature Gran # 0.84 Segmented Neutrophils 81 Band Neutrophils 4 Lymphocytes 11 L Monocytes 4 Nucleated RBCs # 0.29 Platelet Estimate Adequate Immature Plt Fraction 0.0 Polychromasia Slight Macrocytosis 1+ Target Cells Slight Haptoglobin 9.0 L Sodium 139 Potassium 4.5 Chloride 106 Carbon Dioxide 26 Anion Gap 11.5 BUN 35 H Creatinine 1.60 H GFR Calculation 59 BUN/Creatinine Ratio 21.00 H Glucose 281 H POC Glucose Calculated Osmolality 294.5 Calcium 8.0 L Magnesium 2.6 H 07/17/17 08:19 WBC RBC Hgb Hct MCV MCH MCHC RDW Plt Count MPV Neut % (Auto) Lymph % (Auto) [place] % (Auto) Eos % (Auto) Baso % (Auto) Neut # (Auto) Lymph # (Auto) [place] # (Auto) Eos # (Auto) Baso # (Auto) Total Counted Immature Gran % Nucleated RBC % Immature Gran # Segmented Neutrophils Band Neutrophils Lymphocytes Monocytes Nucleated RBCs # Platelet Estimate Immature Plt Fraction Polychromasia Macrocytosis Target Cells Haptoglobin Sodium Potassium Chloride Carbon Dioxide Anion Gap BUN Creatinine GFR Calculation BUN/Creatinine Ratio Glucose POC Glucose 306 H Calculated Osmolality Calcium Magnesium - EKG EKG results: interpreted by me Quality Measures - VTE Contraindication to Pharmacological VTE Prophylaxis: High Risk of Bleeding Specialty Discharge - Follow Up or Referrals Follow up with: Marvel Cerrato MD [Physician] - 07/26/17 9:45 am
[2017-07-17] MEDS: ATORVASTATIN 10 MG TABLET PO SCH (21:39)
[2017-07-18] MEDS: NITROGLYCERIN 2% OINT 1 INCH/GM PACK TOP SCH ×3 (00:24→13:22)
[2017-07-18 06:16] LABS: Basophils % 0.3 % (0.0-0.8); Eosinophils % 0.2 % (0.00-10.9); Hematocrit 29.9 VOL% (42.0-52.0); Hemoglobin 10.3 GM/DL (14.0-18.0); Immature Granulocytes % 8.6 %; Immature Granulocytes Absolute 0.98 #; Lymphocytes # 1.5 10*3/uL (1.4-4.0); Lymphocytes % 13.4 % (21.2-54.2); Mean Corpuscular HGB Conc 34.4 GM/DL (32-36); Mean Corpuscular Hemoglobin 31 PG (27-34); Mean Corpuscular Volume 88.7 FL (87-102); Mean Platelet Volume 12.3 FL (9.6-12.0); Monocytes # 0.7 10*3/uL (0.11-0.8); Monocytes % 6.4 % (1.7-12.7); NRBC # 0.62 10*3/uL; Neutrophils # 8.2 10*3/uL (1.4-7.4); Neutrophils % 71.1 % (38.7-73.9); Platelet Count 109 T/CUMM (130-400); Red Blood Count 3.37 MC/CUMM (3.8-5.5); Red Cell Distribution Width 21.1 % (9.3-17.3); White Blood Count 11.5 T/CUMM (4-12)
[2017-07-18 08:03] LABS: Band Neutrophils 3 % (0-10); Lymphocytes 13 % (20-55); Myelocytes 1 %; Nucleated Red Blood Cells 4 (0-5); Segmented Neutrophils 76 % (50-85); Total Cells Counted 100
[2017-07-18 08:04] LABS: Macrocytosis 1+; Platelet Estimate Decreased; Polychromasia Slight
[2017-07-18 08:43] VITALS: BP 157/73
[2017-07-18] MEDS: INSULIN REGULAR 100 UNIT/ML SUBCUT SCH (08:58)
[2017-07-18] MEDS: QUINAPRIL 5 MG TABLET PO SCH (09:02)
[2017-07-18] MEDS: GEMFIBROZIL 600 MG TABLET PO SCH (09:02)
--- NOTE | 2017-07-18 09:02 | Hematology Progress Note ---
Assessment and Plan (1) AIHA (autoimmune hemolytic anemia) Status: Acute Current Visit: Yes (2) Anemia Status: Acute Current Visit: Yes Hematology Subjective PN Interval history: Mr. Mota is doing very well today. His hemoglobin has risen to 10 after 2 units of blood yesterday. He is fine to be discharged home from my standpoint. I will send him home with 60 mg of prednisone daily. On Wednesday, I will instruct my nurse to make a lab only appointment on Wednesday, 07/21 and then an office visit on Wednesday, 07/28. He is aware that we will make these appointments. I instructed him that if he does not hear from us by Wednesday afternoon, to call the clinic to confirm. Exam - Constitutional Vitals: Period Temp Pulse Resp BP Sys/Dunn Pulse Ox Last 24 Hr 97.5 F-98.5 F 59-87 18-20 122-157/61-85 93-100 General appearance: normal weight, no acute distress - Head Head Exam: Present: normocephalic, atraumatic - Eye Eye Exam: Present: EOMI Pupils: Present: PERRL - ENT ENT exam: Present: normal exam, normal oropharynx - Neck Neck exam: Absent: lymphadenopathy, thyromegaly - Respiratory Respiratory exam: Present: CTAB. Absent: wheezes - Cardiovascular Cardiovascular exam: Present: RRR. Absent: JVD - GI/Abdominal GI/Abdominal exam: Present: soft. Absent: ascites, distended, firm, mass - Neurological Exam Neurological exam: Present: alert, oriented X3 - Psychiatric Psychiatric exam: Present: normal affect, normal mood - Skin Skin exam: Present: warm, dry Results - Labs CBC & BMP: 07/18/17 05:17 07/17/17 05:00 Lab Results: I have reviewed the past 24 hour labs Quality Measures - VTE Contraindication to Pharmacological VTE Prophylaxis: High Risk of Bleeding Specialty Discharge - Follow Up or Referrals Follow up with: Marvel Cerrato MD [Physician] - 07/26/17 9:45 am
[2017-07-18] MEDS: HYOSCYAMINE 0.125 MG TABLET PO SCH (09:03)
[2017-07-18] MEDS: GABAPENTIN 600 MG TABLET PO SCH (09:03)
[2017-07-18] MEDS: SPIRONOLACTONE 25 MG TABLET PO SCH (09:03)
[2017-07-18] MEDS: PANTOPRAZOLE 40 MG TABLET PO SCH (09:03)
[2017-07-18] MEDS: SERTRALINE 100 MG TABLET PO SCH (09:03)
[2017-07-18] MEDS: CILOSTAZOL 50 MG TABLET PO SCH (09:03)
[2017-07-18] MEDS: predniSONE 20 MG TABLET PO SCH (09:03)
[2017-07-18] MEDS: amLODIPine 5 MG TABLET PO SCH (09:03)
[2017-07-18] MEDS: ASPIRIN CHEW 81 MG TABLET PO SCH (09:03)
[2017-07-18] MEDS: FOLIC ACID 1 MG TABLET PO SCH (09:03)
[2017-07-18] MEDS: CLOPIDOGREL 75 MG TABLET PO SCH (09:03)
[2017-07-18] MEDS: FAMOTIDINE 20 MG TABLET PO SCH (09:04)
[2017-07-18] MEDS: CARVEDILOL 12.5 MG TABLET PO SCH (09:04)
[2017-07-18] MEDS: INSULIN ASPART PROTAMINE/ASPART 70/30 100 UNIT/ML SUBCUT SCH (09:04)
--- NOTE | 2017-07-18 10:14 | Family Practice Progress Note ---
Family Practice - PN: Subj Interval history: Patient seen this morning slept well last night with his BiPAP machine. He is still a little anemic with an H&H of 8.1 and 23.7. He is scheduled to get 2 more units of blood (states the first 2 units helped him quite a bit). His blood sugar still elevated in the 300 range. I am going to restart his metformin and just watch his creatinine. I will put him on lower dose of 500 mg daily as opposed to what he was taking at home, 1000 mg twice daily. 07/18/2017: We will see patient he was asleep with BiPAP at home. He was resting well and in no acute distress. His blood sugars have come down remarkably since restarting the metformin. Nurses stated he had a good night last night. CBC is improved with a hemoglobin hematocrit up to 10.3 and 29.9 from 8.1 and 23.7. We may discharge today if cardiology okay. Will see patient in that case Exam (Progress Note) - Constitutional Vitals: Period Temp Pulse Resp BP Sys/Dunn Pulse Ox Last 24 Hr 97.5 F-98.5 F 59-87 18-20 122-157/61-85 93-100 Results - Labs CBC & BMP: 07/18/17 05:17 07/17/17 05:00 Quality Measures - VTE Contraindication to Pharmacological VTE Prophylaxis: High Risk of Bleeding Specialty Discharge - Follow Up or Referrals Follow up with: Marvel Cerrato MD [Physician] - 07/26/17 9:45 am
--- NOTE | 2017-07-18 10:42 | Discharge Summary ---
Hospital Course - Hospital Course Hospital Course: 62-year-old male, followed by Dr. Mena. Admitted with non-STEMI, demand ischemia, severe anemia, Prior PCI. [facility] 07/12/2017: Impression: No significant coronary disease Widely patent recently placed stents in the midline LAD and the in the mid right coronary There are 2 other areas, one in the circumflex, one in the proximal right coronary where there was a 40% to at most 50% narrowing. No critical coronary disease Normal global/regional left ventricular systolic function, LVEF greater than 55% Moderate elevation of LVEDP, 30 mmHg Angio-Seal of the right femoral artery-successful -He was managed medically. He was diagnosed with severe anemia, which turned to be hemolytic. Hem was consulted and he was started on steroid therapy, and also underwent transfusion. This was quite difficult due to the presence of warm antibodies and required several days to arrange. Finally, this was accomplished and his symptoms improved markedly after transfusion. The AI CHRISTY will be managed by steroids and followed by Dr. Olson. He gave him a written prescription for the prednisone -Type 2 diabetes mellitus, the metformin dose was decreased by his PCP. The insulin dose was also increased. He will need to follow-up with Dr. Dr. Cerrato -Bilirubin was elevated and statin was held initially, this was likely due to hemolysis, the statin was restarted without issues. -GI evaluated him as an inpatient, no workup was indicated. He will need to follow-up with him as an outpatient. -AIHA. Followed by hem/onc. On prednisone, got transfused. Still anemic, further transfusion is planned. -Continue aspirin, Plavix for severe CAD, which was revascularized previously and appears to be stable at this time. Unless there is an absolute contraindication, would continue dual antiplatelets, given his recent stents 2016 -He was also reevaluated by Dr. Ladd. Continue nocturnal CPAP -Continue beta-karel Dr. Olson's discharge instructions: I will send him home with 60 mg of prednisone daily. On Wednesday, I will instruct my nurse to make a lab only appointment on Wednesday, 07/21 and then an office visit on Wednesday, 07/28. He is aware that we will make these appointments. I instructed him that if he does not hear from us by Wednesday afternoon, to call the clinic to confirm. Dr. Mares's discharge instructions 07/18/2017: We will see patient he was asleep with BiPAP at home. He was resting well and in no acute distress. His blood sugars have come down remarkably since restarting the metformin. Nurses stated he had a good night last night. CBC is improved with a hemoglobin hematocrit up to 10.3 and 29.9 from 8.1 and 23.7. We may discharge today if cardiology okay. Will see patient in that case Follow-up with Dr. Mena in 2 weeks Diagnosis - Discharge Diagnosis (1) NSTEMI (non-ST elevated myocardial infarction) Status: Resolved (2) AIHA (autoimmune hemolytic anemia) Status: Acute (3) Obstructive sleep apnea Status: Chronic Specialty Discharge - Follow Up or Referrals Follow up with: Marvel Cerrato MD [Physician] - 07/26/17 9:45 am Toni Mena MD [Physician] - 1 Week (See discharge summary for follow-up with Dr. Olson and instructions for labs. Follow-up with Dr. Mena in 1 week) Discharge Plan - Discharge Data Disposition: Disch To Home/Self Care Condition at Discharge: Stable Discharge Diet: advance to your usual diet Activity: resume usual activities as tolerated Hygiene: no restrictions Weight Bearing at Discharge: full weight bearing Driving: no restrictions Contact your physician if you experience:: fever over 101, Difficulty voiding, Redness or swelling, Nausea/Vomiting, Shortness of breath, Bleeding, pain uncontrolled by pain medications - Discharge Medications New Insulin Degludec [Tresiba Flextouch U-200] 50 unit SQ DAILY #5 insuln.pen Alum/Mag/Simeth Max Str Liquid [Mylanta Max Strength Liquid] 30 ml PO Q4H PRN #30 PRN Reason: Dyspepsia Folic Acid Tab 1 mg PO DAILY #30 tablet metFORMIN XR [Glucophage Xr] 500 mg PO DAILY W/BREAKFAST #30 tablet Potassium Chloride Cap/Tab [K Dur] 20 meq PO ONCE PRN #30 tablet PRN Reason: Potassium level 3.5 to 3.9 predniSONE TAB [PredniSONE] 60 mg PO DAILY tablet Carvedilol [Coreg] 12.5 mg PO BID #60 tablet Spironolactone [Aldactone] 12.5 mg PO DAILY #30 tablet Continue Omeprazole 20 mg PO DAILY Insulin Aspart Prot/Asp 70/30 [NovoLOG Mix 70/30] 90 unit SUBCUT BID Sertraline [Zoloft] 100 mg PO DAILY Amlodipine Besylate 5 mg PO DAILY Gemfibrozil 600 mg PO BID Gabapentin 600 mg PO BID Quinapril [Accupril] 10 mg PO DAILY Atorvastatin [Lipitor] 10 mg PO DAILY Aspirin Chew Tab 81 mg PO DAILY tablet Nitroglycerin Sl Tab [Nitrostat] 0.4 mg SL Q5M PRN #25 tablet PRN Reason: Chest Pain Cilostazol [Pletal] 50 mg PO BID #60 tablet Clopidogrel [Plavix] 75 mg PO DAILY #30 tablet Ranitidine Tab [Zantac Tab] 1 tablet PO DAILY Discontinued metFORMIN [Glucophage] 1,000 mg PO BID W/MEALS Carvedilol [Coreg] 6.25 mg PO BID #60 tablet Furosemide Tab [Lasix Tab] 20 mg PO DAILY #30 tablet Insulin Degludec [Tresiba Flextouch U-100] 34 units SUBCUT BEDTIME - Follow Up or Referral Follow Up: Marvel Cerrato MD [Physician] - 07/26/17 9:45 am Toni Mena MD [Physician] - 1 Week (See discharge summary for follow-up with Dr. Olson and instructions for labs. Follow-up with Dr. Mena in 1 week) - Forms/Instructions Instructions: Coronary Artery Disease (GEN), Left Heart Catheterization (DC), Heart Healthy Diet (GEN) Exam - Constitutional Vitals: Period Temp Pulse Resp BP Sys/Dunn Pulse Ox Last 24 Hr 97.5 F-98.5 F 59-87 18-20 122-157/61-85 93-100 General appearance: no acute distress, morbidly obese - Head Head exam: Present: normal inspection, normocephalic - Eye Eye exam: Absent: conjunctival injection, scleral icterus Pupils: Absent: dilated - ENT ENT exam: Present: normal external ear exam - Neck Neck exam: Present: normal inspection - Respiratory Respiratory exam: Present: clear to auscultation bilaterally. Absent: chest wall tenderness - Cardiovascular Cardiovascular exam: Present: regular rate and rhythm, systolic murmur. Absent : JVD - GI/Abdominal GI/Abdominal exam: Present: normal bowel sounds. Absent: distended - Extremities Exam Extremities exam: Present: normal inspection, normal capillary refill. Absent: edema - Back Exam Back exam: Present: normal inspection - Neurological Exam Neurological exam: Present: alert, oriented X3 - Psychiatric Psychiatric exam: Present: normal affect, normal mood - Skin Skin exam: Present: normal color, warm. Absent: cyanosis Discharge Results Procedures and tests throughout hospitalization: Pending Orders 07/12/17 Occult Blood, Stool Stat 07/19/17 04:00 Basic Metabolic Panel w/Mg IN AM Labs on day of discharge: Labs from last 24 hours 07/18/17 07/18/17 07/18/17 08:10 05:17 01:51 WBC 11.5 RBC 3.37 L D Hgb 10.3 L D Hct 29.9 L MCV 88.7 MCH 31 MCHC 34.4 RDW 21.1 H Plt Count 109 L MPV 12.3 H Neut % (Auto) 71.1 Lymph % (Auto) 13.4 L [place] % (Auto) 6.4 Eos % (Auto) 0.2 Baso % (Auto) 0.3 Neut # (Auto) 8.2 H Lymph # (Auto) 1.5 [place] # (Auto) 0.7 Eos # (Auto) 0.0 Baso # (Auto) 0.0 Total Counted 100 Immature Gran % 8.6 Nucleated RBC % 5.4 Immature Gran # 0.98 Segmented Neutrophils 76 Band Neutrophils 3 Lymphocytes 13 L Monocytes 7 Myelocytes 1 Nucleated RBCs 4 Nucleated RBCs # 0.62 Platelet Estimate Decreased Immature Plt Fraction 0.0 Polychromasia Slight Macrocytosis 1+ POC Glucose 142 H 193 H Blood Type Antibody Screen Crossmatch Blood Bank Comment 07/17/17 07/17/17 07/17/17 21:02 21:01 16:32 WBC RBC Hgb Hct MCV MCH MCHC RDW Plt Count MPV Neut % (Auto) Lymph % (Auto) [place] % (Auto) Eos % (Auto) Baso % (Auto) Neut # (Auto) Lymph # (Auto) [place] # (Auto) Eos # (Auto) Baso # (Auto) Total Counted Immature Gran % Nucleated RBC % Immature Gran # Segmented Neutrophils Band Neutrophils Lymphocytes Monocytes Myelocytes Nucleated RBCs Nucleated RBCs # Platelet Estimate Immature Plt Fraction Polychromasia Macrocytosis POC Glucose 422 H 420 H 343 H Blood Type Antibody Screen Crossmatch Blood Bank Comment 07/17/17 07/16/17 11:41 09:16 WBC RBC Hgb Hct MCV MCH MCHC RDW Plt Count MPV Neut % (Auto) Lymph % (Auto) [place] % (Auto) Eos % (Auto) Baso % (Auto) Neut # (Auto) Lymph # (Auto) [place] # (Auto) Eos # (Auto) Baso # (Auto) Total Counted Immature Gran % Nucleated RBC % Immature Gran # Segmented Neutrophils Band Neutrophils Lymphocytes Monocytes Myelocytes Nucleated RBCs Nucleated RBCs # Platelet Estimate Immature Plt Fraction Polychromasia Macrocytosis POC Glucose 347 H Blood Type Cancelled Antibody Screen Cancelled Crossmatch See Detail Blood Bank Comment Cancelled - Imaging and Cardiology Cardiology Procedure: image reviewed by me, report reviewed by me DS: Provider Date of admission: 07/15/17 08:53 Primary care physician: . No PCP Attending physician on admission: Toni Mena MD Consults: 07/12/17 10:02 Consult to Cardiac Rehabilitation [CONS] Routine Reason for Cardiac Rehabilitation: Risk Factor Modification Other Consult Comment: Evaluate and recommend 07/12/17 12:03 Consult to Physician [CONS] Routine Comment: Consulting Provider: Vijay Daniels Consulting Provider Notified: No When should Consulting Provider be notified: Now Consult to Specialist Group: Gastroenterology Person Notified: left message / Shu returned call at [phone] Date Notified: 07/12/17 Time Notified: 12:25 Consult Notification Comment: 62-year-old man who states he has been seen by you and scope by you. He is a history of hiatal hernia. He had 2 stents done last week and bad chest pain afterwards but was thought to be his hiatal hernia. Negative enzymes negative EKG. He went home. Over this weekend he has been taking some frequent Pepto-Bismol pills and now has black stools. His hematocrit decreased about 1.5 mg percent. He now has a same chest pain he had before his stents. Cath revealed the stents are widely patent and there is no coronary cause for the chest pain with exertion. It could be due to combination of anemia, moderate CAD, and high LVEDP but it could be esophageal cause such esophageal spasm or esophagitis or peptic ulcer disease, although he is on a proton pump inhibitor states he takes it regularly. Please see and evaluate. Thank you for your help. 07/12/17 13:57 Consult to Sleep Center [CONS] Routine Reason for Sleep Center: Sleep Center Physician Consult Comment: SOB, sleep apnea 07/13/17 16:17 Consult to Physician [CONS] Routine Comment: Anemia, needs transfusion with abnormal antibodies Consulting Provider: Boby Burnham Date Notified: 07/13/17 Time Notified: 16:23 Consult Notification Comment: spoke with Dr. Burnham's office re: consult. order and face sheet faxed per request 07/14/17 14:06 Consult to Physician [CONS] Routine Comment: Consulting Provider: Marvel Cerrato When should Consulting Provider be notified: Now Consult to Specialist Group: Hospitalist When should Consulting Provider be notified: Now Person Notified: Tari Date Notified: 07/15/17 Time Notified: 14:35 Consult Notification Comment: Uncontrolled blood glucose levels, diabetic. Now on steroids and suspect will be treated with steroids for an indefinate period of time. THanks Discharging clinician: Parminder Gannon MD Expected date of discharge: 07/18/17
[2017-07-19] MEDS ORDERED: predniSONE 20 MG TABLET PO SCH (09:00)
== END 2017-07-18 13:30 | disposition home or self-care (01) | DRG 281 ==
LOC: N.ED 09:47 → N.EDINP 09:47 → N.TELES 11:42
PROVIDERS: ADMIT Internal Medicine Cardiovascular Disease; ATTEND Internal Medicine Cardiovascular Disease
PROC: CLCCHCL (ICD-10-PCS; 2017-07-12 11:15)

== ENCOUNTER 2017-10-21 21:26 | Inpatient (IN) ==
[2017-10-21] MEDS ORDERED: ASPIRIN 325 MG TABLET PO STA (22:01)
[2017-10-21] MEDS ORDERED: NITROGLYCERIN 2% OINT 1 INCH/GM PACK TOP STA (22:01)
[2017-10-21] MEDS ORDERED: ASPIRIN 325 MG TABLET ONE (22:16)
[2017-10-21] MEDS ORDERED: NITROGLYCERIN 2% OINT 1 INCH/GM PACK TOP ONE (22:16)
[2017-10-21 22:26] LABS: Basophils # 0.1 10*3/uL (0.0-0.2); Basophils % 0.7 % (0.0-0.8); Eosinophils # 0.3 10*3/uL (0.0-0.87); Eosinophils % 2.8 % (0.00-10.9); Hematocrit 23.1 VOL% (42.0-52.0); Immature Granulocytes % 4.2 %; Immature Granulocytes Absolute 0.42 #; Lymphocytes # 1.2 10*3/uL (1.4-4.0); Lymphocytes % 12.1 % (21.2-54.2); Mean Corpuscular HGB Conc 34.6 GM/DL (32-36); Mean Corpuscular Hemoglobin 31 PG (27-34); Mean Corpuscular Volume 88.2 FL (87-102); Mean Platelet Volume 12.5 FL (9.6-12.0); Monocytes # 0.7 10*3/uL (0.11-0.8); Monocytes % 6.6 % (1.7-12.7); NRBC # 0.68 10*3/uL; Neutrophils # 7.4 10*3/uL (1.4-7.4); Neutrophils % 73.6 % (38.7-73.9); Platelet Count 149 T/CUMM (130-400); Red Blood Count 2.62 MC/CUMM (3.8-5.5); Red Cell Distribution Width 21.4 % (9.3-17.3); White Blood Count 10.1 T/CUMM (4-12)
[2017-10-21 22:42] LABS: Alanine Aminotransferase 22 U/L (16-61); Albumin 3.9 G/DL (3.4-5.0); Alkaline Phosphatase 113 U/L (45-117); Aspartate Amino Transferase 25 U/L (0-37); Blood Urea Nitrogen 29 MG/DL (7-18); Calcium 8.1 MG/DL (8.5-10.1); Glucose 495 MG/DL (74-106); Osmolality,Calculated 300.8 MOS/KG (273-304); Potassium 4.4 MMOL/L (3.5-5.1); Sodium 137 MMOL/L (136-145); Total Protein 7.2 G/DL (6.4-8.3); Troponin I Only 0.018 NG/ML (0.00-0.045)
[2017-10-21 23:18] LABS: PT Patient Result 10.2 SECS; Partial Thromboplastin Time 24.7 SECS (0-40)
[2017-10-21] MEDS ORDERED: ONDANSETRON 4 MG/2 ML VIAL ONE (23:30)
[2017-10-21] MEDS ORDERED: HYDROmorphone 2 MG/1 ML VIAL ONE (23:30)
[2017-10-21] MEDS ORDERED: HYDROmorphone 2 MG/1 ML VIAL IV STA (23:32)
[2017-10-21] MEDS ORDERED: ONDANSETRON 4 MG/2 ML VIAL IV STA (23:32)
[2017-10-21] MEDS ORDERED: ONDANSETRON 4 MG/2 ML VIAL IV PRN (23:47)
[2017-10-21] MEDS ORDERED: GLUCAGON 1 MG VIAL IM PRN (23:47)
[2017-10-21] MEDS ORDERED: DEXTROSE 50% 25 GM/50 ML VIAL IV PRN (23:47)
[2017-10-22] MEDS ORDERED: NITROGLYCERIN SL 0.4 MG TABLET SL PRN (01:08)
[2017-10-22] MEDS ORDERED: INSULIN DEGLUDEC 50 UNIT SQ SCH (01:11)
[2017-10-22] MEDS: CILOSTAZOL 50 MG TABLET PO SCH ×3 (01:45→22:25)
[2017-10-22] MEDS: CARVEDILOL 12.5 MG TABLET PO SCH ×3 (01:45→22:26)
[2017-10-22 07:43] LABS: Basophils # 0.1 10*3/uL (0.0-0.2); Basophils % 0.6 % (0.0-0.8); Eosinophils # 0.1 10*3/uL (0.0-0.87); Eosinophils % 0.7 % (0.00-10.9); Hematocrit 24.2 VOL% (42.0-52.0); Hemoglobin 8.3 GM/DL (14.0-18.0); Immature Granulocytes Absolute 0.64 #; Lymphocytes # 1.2 10*3/uL (1.4-4.0); Lymphocytes % 9.4 % (21.2-54.2); Mean Corpuscular HGB Conc 34.3 GM/DL (32-36); Mean Corpuscular Hemoglobin 30 PG (27-34); Mean Corpuscular Volume 87.4 FL (87-102); Mean Platelet Volume 12.6 FL (9.6-12.0); Monocytes # 0.3 10*3/uL (0.11-0.8); Monocytes % 2.7 % (1.7-12.7); NRBC # 0.67 10*3/uL; Neutrophils # 10.4 10*3/uL (1.4-7.4); Neutrophils % 81.6 % (38.7-73.9); Platelet Count 163 T/CUMM (130-400); Red Blood Count 2.77 MC/CUMM (3.8-5.5); Red Cell Distribution Width 21.5 % (9.3-17.3); White Blood Count 12.7 T/CUMM (4-12)
[2017-10-22 08:04] LABS: Band Neutrophils 3 % (0-10); Giant Platelets Few; Lymphocytes 10 % (20-55); Macrocytosis Slight; Nucleated Red Blood Cells 5 (0-5); Platelet Estimate Normal; Polychromasia Slight; Segmented Neutrophils 87 % (50-85); Total Cells Counted 100
[2017-10-22 08:05] LABS: Hypochromasia 1+
[2017-10-22 08:11] LABS: Bilirubin,Total 2.2 MG/DL (0.2-1.0); Calcium 8.3 MG/DL (8.5-10.1); Potassium 4.9 MMOL/L (3.5-5.1)
[2017-10-22] MEDS ORDERED: predniSONE 50 MG TABLET ONE (08:54)
[2017-10-22] MEDS ORDERED: predniSONE 10 MG TABLET ONE (08:55)
[2017-10-22] MEDS ORDERED: predniSONE 20 MG TABLET PO SCH ×2 (09:00→14:01)
[2017-10-22] MEDS: GABAPENTIN 600 MG TABLET PO SCH ×2 (09:00→22:25)
[2017-10-22] MEDS ORDERED: SERTRALINE 100 MG TABLET PO SCH (09:00)
[2017-10-22] MEDS ORDERED: RANITIDINE 150 MG TABLET PO SCH ×2 (09:00→21:00)
[2017-10-22] MEDS: FUROSEMIDE 20 MG TABLET PO SCH (09:02)
[2017-10-22] MEDS: QUINAPRIL 5 MG TABLET PO SCH (09:02)
[2017-10-22] MEDS: amLODIPine 5 MG TABLET PO SCH (09:02)
[2017-10-22] MEDS: GEMFIBROZIL 600 MG TABLET PO SCH ×2 (09:02→16:35)
[2017-10-22] MEDS: PANTOPRAZOLE 40 MG TABLET PO SCH (09:02)
[2017-10-22] MEDS: INSULIN ASPART PROTAMINE/ASPART 70/30 100 UNIT/ML SUBCUT SCH ×2 (09:03→16:35)
[2017-10-22] MEDS: SPIRONOLACTONE 25 MG TABLET PO SCH (09:03)
[2017-10-22] MEDS: SERTRALINE 100 MG TABLET PO SCH (09:03)
[2017-10-22] MEDS: INSULIN REGULAR 100 UNIT/ML SUBCUT SCH ×4 (09:03→22:25)
[2017-10-22] MEDS: HYDROmorphone 2 MG/1 ML VIAL IV PRN ×3 (09:44→18:34)
[2017-10-22 10:12] LABS: Basophils # 0.1 10*3/uL (0.0-0.2); Basophils % 0.4 % (0.0-0.8); Eosinophils # 0.1 10*3/uL (0.0-0.87); Eosinophils % 0.5 % (0.00-10.9); Hematocrit 23.5 VOL% (42.0-52.0); Hemoglobin 8.3 GM/DL (14.0-18.0); Lymphocytes % 7.4 % (21.2-54.2); Mean Corpuscular HGB Conc 35.3 GM/DL (32-36); Mean Corpuscular Hemoglobin 30 PG (27-34); Mean Corpuscular Volume 85.8 FL (87-102); Mean Platelet Volume 12.9 FL (9.6-12.0); Monocytes # 0.5 10*3/uL (0.11-0.8); Monocytes % 3.8 % (1.7-12.7); NRBC # 0.63 10*3/uL; Neutrophils # 11.6 10*3/uL (1.4-7.4); Neutrophils % 82.9 % (38.7-73.9); Platelet Count 166 T/CUMM (130-400); Red Blood Count 2.74 MC/CUMM (3.8-5.5); Red Cell Distribution Width 21.8 % (9.3-17.3)
[2017-10-22 10:36] LABS: Band Neutrophils 2 % (0-10); Eosinophils 2 % (0-10); Lymphocytes 8 % (20-55); Nucleated Red Blood Cells 2 (0-5); Segmented Neutrophils 86 % (50-85); Total Cells Counted 100
[2017-10-22 10:37] LABS: Macrocytosis Slight; Ovalocytes Slight; Polychromasia Slight
[2017-10-22 10:38] LABS: Platelet Estimate Adequate
[2017-10-22] MEDS ORDERED: ACETAMINOPHEN 325 MG TABLET PO PRN (13:57)
[2017-10-22] MEDS ORDERED: diphenhydrAMINE CAP 25 MG CAPSULE PO PRN (13:57)
[2017-10-22] MEDS ORDERED: SODIUM CHLORIDE 0.9% 1,000 ML IV PRN (13:57)
[2017-10-22 16:14] LABS: HIV Antigen/Antibody Result Nonreactive (Nonreactive)
[2017-10-22] MEDS ORDERED: ATORVASTATIN 10 MG TABLET PO SCH (21:00)
[2017-10-23 03:07] LABS: Basophils # 0.1 10*3/uL (0.0-0.2); Basophils % 0.3 % (0.0-0.8); Eosinophils % 0.2 % (0.00-10.9); Hematocrit 21.6 VOL% (42.0-52.0); Hemoglobin 7.6 GM/DL (14.0-18.0); Immature Granulocytes % 5.3 %; Immature Granulocytes Absolute 0.96 #; Lymphocytes # 1.9 10*3/uL (1.4-4.0); Lymphocytes % 10.4 % (21.2-54.2); Mean Corpuscular HGB Conc 35.2 GM/DL (32-36); Mean Corpuscular Hemoglobin 31 PG (27-34); Mean Corpuscular Volume 86.7 FL (87-102); Mean Platelet Volume 12.8 FL (9.6-12.0); Monocytes # 1.4 10*3/uL (0.11-0.8); Monocytes % 7.8 % (1.7-12.7); NRBC # 0.88 10*3/uL; Neutrophils # 13.6 10*3/uL (1.4-7.4); Platelet Count 158 T/CUMM (130-400); Red Blood Count 2.49 MC/CUMM (3.8-5.5); Red Cell Distribution Width 22.6 % (9.3-17.3)
[2017-10-23 03:49] LABS: Calcium 8.2 MG/DL (8.5-10.1); Magnesium 2.3 MG/DL (1.8-2.4); Osmolality,Calculated 293.7 MOS/KG (273-304); Potassium 4.8 MMOL/L (3.5-5.1)
[2017-10-23 04:52] LABS: Band Neutrophils 1 % (0-10); Lymphocytes 13 % (20-55); Nucleated Red Blood Cells 2 (0-5); Platelet Estimate Normal; Polychromasia Slight; Segmented Neutrophils 82 % (50-85); Total Cells Counted 100
[2017-10-23] MEDS ORDERED: IMMUNE GLOBULIN 10% 20 GM, IMMUNE GLOBULIN 10% 5 GM in PREMIX 1 EACH IV ONE (09:22)
[2017-10-23] MEDS: INSULIN REGULAR 100 UNIT/ML SUBCUT SCH ×3 (09:43→16:29)
[2017-10-23] MEDS: INSULIN ASPART PROTAMINE/ASPART 70/30 100 UNIT/ML SUBCUT SCH ×2 (09:44→16:29)
[2017-10-23] MEDS: SPIRONOLACTONE 25 MG TABLET PO SCH (09:46)
[2017-10-23] MEDS: QUINAPRIL 5 MG TABLET PO SCH (09:46)
[2017-10-23] MEDS: CARVEDILOL 12.5 MG TABLET PO SCH (09:46)
[2017-10-23] MEDS: GABAPENTIN 600 MG TABLET PO SCH (09:46)
[2017-10-23] MEDS: FUROSEMIDE 20 MG TABLET PO SCH (09:46)
[2017-10-23] MEDS: CILOSTAZOL 50 MG TABLET PO SCH (09:46)
[2017-10-23] MEDS: SERTRALINE 100 MG TABLET PO SCH (09:46)
[2017-10-23] MEDS: GEMFIBROZIL 600 MG TABLET PO SCH ×2 (09:47→16:35)
[2017-10-23] MEDS: amLODIPine 5 MG TABLET PO SCH (09:47)
[2017-10-23] MEDS: PANTOPRAZOLE 40 MG TABLET PO SCH (09:49)
[2017-10-23 16:22] VITALS: BP 124/60
== END 2017-10-23 17:30 | disposition home or self-care (01) | DRG 313 ==
LOC: N.ED 21:26 → N.EDINP 23:29 → N.TELES 23:46
PROVIDERS: ADMIT Family Medicine; ATTEND Family Medicine

== ENCOUNTER 2017-10-24 07:31 | Observation (INO) ==
[2017-10-24 08:38] LABS: Basophils # 0.1 10*3/uL (0.0-0.2); Basophils % 0.5 % (0.0-0.8); Eosinophils # 0.2 10*3/uL (0.0-0.87); Eosinophils % 1.1 % (0.00-10.9); Hematocrit 22.2 VOL% (42.0-52.0); Hemoglobin 7.5 GM/DL (14.0-18.0); Immature Granulocytes % 5.9 %; Immature Granulocytes Absolute 1.09 #; Lymphocytes # 3.4 10*3/uL (1.4-4.0); Lymphocytes % 18.3 % (21.2-54.2); Mean Corpuscular HGB Conc 33.8 GM/DL (32-36); Mean Corpuscular Hemoglobin 30 PG (27-34); Mean Corpuscular Volume 89.5 FL (87-102); Mean Platelet Volume 12.2 FL (9.6-12.0); Monocytes # 1.5 10*3/uL (0.11-0.8); Monocytes % 8.1 % (1.7-12.7); NRBC # 2.31 10*3/uL; Neutrophils # 12.3 10*3/uL (1.4-7.4); Neutrophils % 66.1 % (38.7-73.9); Platelet Count 160 T/CUMM (130-400); Red Blood Count 2.48 MC/CUMM (3.8-5.5); Red Cell Distribution Width 24.1 % (9.3-17.3); White Blood Count 18.6 T/CUMM (4-12)
[2017-10-24 11:58] LABS: Band Neutrophils 1 % (0-10); Lymphocytes 24 % (20-55); Nucleated Red Blood Cells 11 (0-5); Segmented Neutrophils 70 % (50-85); Total Cells Counted 100
[2017-10-24 11:59] LABS: Hypochromasia 2+; Macrocytosis 1+; Platelet Estimate Adequate; Polychromasia 1+
[2017-10-24] MEDS ORDERED: NITROGLYCERIN SL 0.4 MG TABLET SL PRN (12:11)
[2017-10-24] MEDS ORDERED: DEXTROSE 50% 25 GM/50 ML VIAL IV PRN (13:09)
[2017-10-24] MEDS ORDERED: GLUCAGON 1 MG VIAL IM PRN (13:09)
[2017-10-24] MEDS ORDERED: PNEUMOCOCCAL VACCINE (23 VALENT) 0.5 ML VIAL IM ONE (13:24)
[2017-10-24] MEDS: INSULIN REGULAR 100 UNIT/ML SUBCUT SCH ×2 (16:52→22:33)
[2017-10-24] MEDS ORDERED: ACETAMINOPHEN 325 MG TABLET PO PRN (17:25)
[2017-10-24] MEDS ORDERED: ALPRAZolam 0.25 MG TABLET PO PRN (17:25)
[2017-10-24] MEDS ORDERED: LOPERAMIDE 2 MG CAPSULE PO PRN ×2 (17:25)
[2017-10-24] MEDS ORDERED: chlorproMAZINE INJ 50 MG in SODIUM CHLORIDE 0.9% 100 ML IV PRN (17:25)
[2017-10-24] MEDS ORDERED: guaiFENesin 200 MG/10 ML UDCUP PO PRN (17:25)
[2017-10-24] MEDS ORDERED: MAGNESIUM HYDROXIDE SUSP 30 ML UDCUP PO PRN (17:25)
[2017-10-24] MEDS ORDERED: PROMETHAZINE INJ 25 MG in SODIUM CHLORIDE 0.9% 50 ML IV PRN (17:25)
[2017-10-24] MEDS ORDERED: BENZTROPINE 2 MG/2 ML AMP IV PRN (17:25)
[2017-10-24] MEDS ORDERED: MYLANTA/LIDO VISC 2:1 300 ML BOTTLE SWISH/SPIT PRN (17:25)
[2017-10-24] MEDS ORDERED: ALUMINUM/MAGNES/SIMETH MAX STR 30 ML UDCUP PO PRN (17:25)
[2017-10-24] MEDS ORDERED: traMADol 50 MG TABLET PO PRN (17:25)
[2017-10-24] MEDS ORDERED: chlorproMAZINE 25 MG TABLET PO PRN (17:25)
[2017-10-24] MEDS ORDERED: chlorproMAZINE INJ 25 MG in SODIUM CHLORIDE 0.9% 100 ML IV PRN (17:25)
[2017-10-24] MEDS ORDERED: diphenhydrAMINE CAP 25 MG CAPSULE PO PRN (17:25)
[2017-10-24] MEDS ORDERED: ONDANSETRON 4 MG/2 ML VIAL IV PRN (17:25)
[2017-10-24] MEDS ORDERED: LACTULOSE 20 GM/30 ML UDCUP PO PRN (17:25)
[2017-10-24] MEDS ORDERED: MYLANTA/LIDO VISC 2:1 300 ML BOTTLE SWISH/SWAL PRN (17:25)
[2017-10-24] MEDS ORDERED: TEMAZEPAM 7.5 MG CAPSULE PO PRN (17:25)
[2017-10-24] MEDS ORDERED: diphenhydrAMINE CAP 50 MG CAPSULE PO ONE (17:30)
[2017-10-24] MEDS ORDERED: ACETAMINOPHEN 325 MG TABLET PO ONE (17:30)
[2017-10-24] MEDS ORDERED: GABAPENTIN 600 MG TABLET PO SCH (21:00)
[2017-10-24] MEDS: GEMFIBROZIL 600 MG TABLET PO SCH (22:27)
[2017-10-24] MEDS: CILOSTAZOL 50 MG TABLET PO SCH (22:27)
[2017-10-24] MEDS: CARVEDILOL 12.5 MG TABLET PO SCH (22:28)
[2017-10-24] MEDS: INSULIN ASPART PROTAMINE/ASPART 70/30 100 UNIT/ML SUBCUT SCH (22:32)
[2017-10-25 08:35] LABS: Basophils # 0.1 10*3/uL (0.0-0.2); Basophils % 0.7 % (0.0-0.8); Eosinophils # 0.2 10*3/uL (0.0-0.87); Eosinophils % 1.7 % (0.00-10.9); Hematocrit 24.8 VOL% (42.0-52.0); Hemoglobin 8.3 GM/DL (14.0-18.0); Immature Granulocytes % 6.5 %; Immature Granulocytes Absolute 0.78 #; Lymphocytes # 2.6 10*3/uL (1.4-4.0); Lymphocytes % 21.6 % (21.2-54.2); Mean Corpuscular HGB Conc 33.5 GM/DL (32-36); Mean Corpuscular Hemoglobin 30 PG (27-34); Mean Corpuscular Volume 88.6 FL (87-102); Mean Platelet Volume 12.5 FL (9.6-12.0); Monocytes # 1.1 10*3/uL (0.11-0.8); Monocytes % 9.1 % (1.7-12.7); NRBC # 2.96 10*3/uL; Neutrophils # 7.3 10*3/uL (1.4-7.4); Neutrophils % 60.4 % (38.7-73.9); Platelet Count 131 T/CUMM (130-400); Red Cell Distribution Width 22.2 % (9.3-17.3)
[2017-10-25] MEDS ORDERED: SERTRALINE 100 MG TABLET PO SCH (09:00)
[2017-10-25] MEDS ORDERED: ASPIRIN CHEW 81 MG TABLET PO SCH (09:00)
[2017-10-25] MEDS ORDERED: predniSONE 20 MG TABLET PO SCH (09:00)
[2017-10-25] MEDS ORDERED: FUROSEMIDE 20 MG TABLET PO SCH (09:00)
[2017-10-25] MEDS ORDERED: QUINAPRIL 10 MG PO SCH (09:00)
[2017-10-25] MEDS ORDERED: POTASSIUM CHLORIDE 20 MEQ TABLET PO SCH (09:00)
[2017-10-25] MEDS ORDERED: PANTOPRAZOLE 40 MG TABLET PO SCH (09:00)
[2017-10-25] MEDS ORDERED: QUINAPRIL 5 MG TABLET PO SCH (09:00)
[2017-10-25] MEDS ORDERED: FOLIC ACID 1 MG TABLET PO SCH (09:00)
[2017-10-25] MEDS ORDERED: amLODIPine 5 MG TABLET PO SCH (09:00)
[2017-10-25] MEDS ORDERED: CLOPIDOGREL 75 MG TABLET PO SCH (09:00)
[2017-10-25] MEDS ORDERED: FAMOTIDINE 20 MG TABLET PO SCH (09:00)
[2017-10-25] MEDS ORDERED: ATORVASTATIN 10 MG TABLET PO SCH (09:00)
[2017-10-25] MEDS ORDERED: SPIRONOLACTONE 25 MG TABLET PO SCH (09:00)
[2017-10-25 09:05] LABS: Albumin 3.7 G/DL (3.4-5.0); Calcium 7.9 MG/DL (8.5-10.1); Potassium 3.8 MMOL/L (3.5-5.1); Total Protein 6.9 G/DL (6.4-8.3)
[2017-10-25] MEDS: CILOSTAZOL 50 MG TABLET PO SCH (09:06)
[2017-10-25] MEDS: GEMFIBROZIL 600 MG TABLET PO SCH (09:06)
[2017-10-25] MEDS: INSULIN ASPART PROTAMINE/ASPART 70/30 100 UNIT/ML SUBCUT SCH (09:08)
[2017-10-25] MEDS: CARVEDILOL 12.5 MG TABLET PO SCH (09:08)
[2017-10-25] MEDS: INSULIN REGULAR 100 UNIT/ML SUBCUT SCH ×3 (10:10→19:53)
[2017-10-25 12:00] LABS: Microcytosis 1+; Platelet Estimate Decreased; Polychromasia Slight; Spherocytes 2+; Target Cells Slight
[2017-10-25] MEDS ORDERED: SODIUM CHLORIDE 0.9% IV ONE (13:00)
[2017-10-25] MEDS ORDERED: RITUXIMAB IV ONE (13:00)
[2017-10-25] MEDS ORDERED: ACETAMINOPHEN 325 MG TABLET PO ONE (13:00)
[2017-10-25] MEDS ORDERED: diphenhydrAMINE CAP 50 MG CAPSULE PO ONE (13:00)
[2017-10-25 15:49] LABS: Hepatitis B Surface Ab Result Positive
[2017-10-25 20:04] VITALS: BP 156/63
== END 2017-10-25 18:10 | disposition home or self-care (01) ==
LOC: N.4EOUT 07:31 → N.4E 12:33 → INTOOBSV 12:33
PROVIDERS: ADMIT Specialist; ATTEND Specialist

== ENCOUNTER 2018-06-06 10:27 | Inpatient (IN) ==
[2018-06-06] MEDS ORDERED: ONDANSETRON 4 MG/2 ML VIAL IV PRN (11:29)
[2018-06-06] MEDS ORDERED: GLUCAGON 1 MG VIAL IM PRN (11:29)
[2018-06-06] MEDS ORDERED: DEXTROSE 50% 25 GM/50 ML VIAL IV PRN (11:29)
[2018-06-06] MEDS ORDERED: ACETAMINOPHEN 325 MG TABLET PO PRN (11:29)
[2018-06-06] MEDS ORDERED: NITROGLYCERIN SL 0.4 MG TABLET SL PRN (13:44)
[2018-06-06] MEDS: INSULIN LISPRO 100 UNIT/ML SUBCUT SCH ×3 (13:49→21:38)
[2018-06-06 13:57] LABS: Basophils % 0.3 % (0.0-0.8); Eosinophils # 0.1 10*3/uL (0.0-0.87); Eosinophils % 1.3 % (0.00-10.9); Hematocrit 39.3 VOL% (42.0-52.0); Hemoglobin 12.5 GM/DL (14.0-18.0); Immature Granulocytes % 1.7 %; Immature Granulocytes Absolute 0.16 #; Lymphocytes # 0.4 10*3/uL (1.4-4.0); Lymphocytes % 4.3 % (21.2-54.2); Mean Corpuscular HGB Conc 31.8 GM/DL (32-36); Mean Corpuscular Hemoglobin 28 PG (27-34); Mean Corpuscular Volume 87.9 FL (87-102); Mean Platelet Volume 11.7 FL (9.6-12.0); Monocytes # 0.4 10*3/uL (0.11-0.8); Monocytes % 4.6 % (1.7-12.7); Neutrophils # 8.1 10*3/uL (1.4-7.4); Neutrophils % 87.8 % (38.7-73.9); Platelet Count 110 T/CUMM (130-400); Red Blood Count 4.47 MC/CUMM (3.8-5.5); Red Cell Distribution Width 15.6 % (9.3-17.3); White Blood Count 9.2 T/CUMM (4-12)
[2018-06-06] MEDS: SODIUM CHLORIDE 0.9% 1,000 ML IV SCH ×3 (14:00→23:25)
[2018-06-06 14:14] LABS: Albumin 3.5 G/DL (3.4-5.0); Bilirubin,Total 1.7 MG/DL (0.2-1.0); Calcium 10.1 MG/DL (8.5-10.1); Osmolality,Calculated 288.5 MOS/KG (273-304); Potassium 4.2 MMOL/L (3.5-5.1); Total Protein 8.2 G/DL (6.4-8.3)
[2018-06-06] MEDS: CEFTAROLINE 600 MG in SODIUM CHLORIDE 0.9% 100 ML IV SCH (15:53)
[2018-06-06 16:32] LABS: Apearance,Urine CLEAR (Clear); Bilirubin,Urine Negative (Negative); Blood, Urine Negative (Negative); Glucose,Urine (UA) >=500 mg/dL (Negative); Hyaline Casts,Urine 1 /LPF (0-3); Ketones,Urine Negative (Negative); Mucus,Urine Occasional /LPF (Occasional); Nitrite,Urine Negative (Negative); Protein,Urine 100 MG/DL; Urine Color Yellow (Yellow); Urine Specific Gravity 1.012 (1.001-1.035); Urine Urobilinogen < 2.0 EU/DL (0.2-1.0); WBC,Urine <1 /HPF (0-6)
[2018-06-06 18:53] LABS: Band Neutrophils 1 % (0-10); Eosinophils 1 % (0-10); Lymphocytes 1 % (20-55); Segmented Neutrophils 89 % (50-85); Total Cells Counted 100
[2018-06-06 19:00] LABS: Anisocytosis Slight
[2018-06-06 19:01] LABS: Platelet Estimate Adequate; Polychromasia Slight
[2018-06-06] MEDS: CARVEDILOL 12.5 MG TABLET PO SCH (21:36)
[2018-06-06] MEDS: GEMFIBROZIL 600 MG TABLET PO SCH (21:36)
[2018-06-06] MEDS: CILOSTAZOL 50 MG TABLET PO SCH (21:36)
[2018-06-06] MEDS: GABAPENTIN 600 MG TABLET PO SCH (21:36)
[2018-06-06] MEDS: INSULIN GLARGINE 100 UNIT/ML SUBCUT SCH (21:36)
[2018-06-06] MEDS: DOCUSATE SODIUM 100 MG CAPSULE PO SCH (21:36)
[2018-06-06] MEDS: INSULIN ASPART PROTAMINE/ASPART 70/30 100 UNIT/ML SUBCUT SCH (21:37)
[2018-06-07] MEDS: CEFTAROLINE 600 MG in SODIUM CHLORIDE 0.9% 100 ML IV SCH ×2 (02:42→15:35)
[2018-06-07] MEDS: SODIUM CHLORIDE 0.9% 1,000 ML IV SCH ×3 (07:10→20:27)
[2018-06-07] MEDS ORDERED: amLODIPine 2.5 MG TABLET ONE (07:14)
[2018-06-07] MEDS: amLODIPine 5 MG TABLET PO SCH ×2 (07:17→08:02)
[2018-06-07] MEDS: QUINAPRIL 5 MG TABLET PO SCH ×2 (07:17→08:00)
[2018-06-07] MEDS: CARVEDILOL 12.5 MG TABLET PO SCH ×3 (07:17→20:10)
[2018-06-07] MEDS: INSULIN LISPRO 100 UNIT/ML SUBCUT SCH ×4 (07:17→20:29)
[2018-06-07] MEDS ORDERED: LIDOCAINE 1%/EPI INJ 20 ML VIAL ONE (07:52)
[2018-06-07] MEDS ORDERED: BUPIVACAINE 0.25% /EPI 10 ML VIAL ONE (07:52)
[2018-06-07] MEDS: ASPIRIN CHEW 81 MG TABLET PO SCH (08:00)
[2018-06-07] MEDS: SPIRONOLACTONE 25 MG TABLET PO SCH (08:00)
[2018-06-07] MEDS: DOCUSATE SODIUM 100 MG CAPSULE PO SCH ×2 (08:00→20:10)
[2018-06-07] MEDS: FUROSEMIDE 20 MG TABLET PO SCH (08:01)
[2018-06-07] MEDS: FOLIC ACID 1 MG TABLET PO SCH (08:01)
[2018-06-07] MEDS: ATORVASTATIN 10 MG TABLET PO SCH (08:01)
[2018-06-07] MEDS: GABAPENTIN 600 MG TABLET PO SCH ×2 (08:01→20:10)
[2018-06-07] MEDS: POTASSIUM CHLORIDE 20 MEQ TABLET PO SCH (08:01)
[2018-06-07] MEDS: GEMFIBROZIL 600 MG TABLET PO SCH ×2 (08:01→20:10)
[2018-06-07] MEDS: INSULIN ASPART PROTAMINE/ASPART 70/30 100 UNIT/ML SUBCUT SCH ×2 (08:02→20:11)
[2018-06-07] MEDS: PANTOPRAZOLE 40 MG TABLET PO SCH (08:02)
[2018-06-07] MEDS: CILOSTAZOL 50 MG TABLET PO SCH ×2 (08:02→20:10)
[2018-06-07] MEDS: SERTRALINE 100 MG TABLET PO SCH (08:02)
[2018-06-07] MEDS ORDERED: ACETAMINOPHEN 500 MG TABLET ONE ×2 (08:53→08:54)
[2018-06-07] MEDS ORDERED: ACETAMINOPHEN 500 MG TABLET PO ONE (08:57)
[2018-06-07] MEDS ORDERED: PROPOFOL 200 MG/20 ML VIAL IV ONE (10:22)
[2018-06-07] MEDS ORDERED: fentaNYL 100 MCG/2 ML VIAL ONE (10:23)
[2018-06-07] MEDS ORDERED: MIDAZOLAM 2 MG/2 ML VIAL ONE (10:23)
[2018-06-07] MEDS: INSULIN GLARGINE 100 UNIT/ML SUBCUT SCH (20:11)
[2018-06-08] MEDS: CEFTAROLINE 600 MG in SODIUM CHLORIDE 0.9% 100 ML IV SCH (03:31)
[2018-06-08] MEDS: SODIUM CHLORIDE 0.9% 1,000 ML IV SCH (05:53)
[2018-06-08] MEDS: INSULIN LISPRO 100 UNIT/ML SUBCUT SCH ×2 (08:13→13:22)
[2018-06-08 09:08] LABS: Basophils % 0.5 % (0.0-0.8); Eosinophils # 0.2 10*3/uL (0.0-0.87); Eosinophils % 2.9 % (0.00-10.9); Hematocrit 34.5 VOL% (42.0-52.0); Hemoglobin 11.2 GM/DL (14.0-18.0); Immature Granulocytes % 2.4 %; Immature Granulocytes Absolute 0.15 #; Lymphocytes # 0.6 10*3/uL (1.4-4.0); Lymphocytes % 9.8 % (21.2-54.2); Mean Corpuscular HGB Conc 32.5 GM/DL (32-36); Mean Corpuscular Hemoglobin 29 PG (27-34); Mean Corpuscular Volume 89.6 FL (87-102); Mean Platelet Volume 11.5 FL (9.6-12.0); Monocytes # 0.5 10*3/uL (0.11-0.8); Monocytes % 7.6 % (1.7-12.7); Neutrophils # 4.8 10*3/uL (1.4-7.4); Neutrophils % 76.8 % (38.7-73.9); Red Blood Count 3.85 MC/CUMM (3.8-5.5); Red Cell Distribution Width 15.7 % (9.3-17.3); White Blood Count 6.2 T/CUMM (4-12)
[2018-06-08 09:09] LABS: Platelet Count 98 T/CUMM (130-400)
[2018-06-08 09:27] LABS: Hypochromasia 1+; Platelet Estimate Decreased
[2018-06-08] MEDS: DOCUSATE SODIUM 100 MG CAPSULE PO SCH (09:28)
[2018-06-08] MEDS: CILOSTAZOL 50 MG TABLET PO SCH (09:28)
[2018-06-08] MEDS: FUROSEMIDE 20 MG TABLET PO SCH (09:28)
[2018-06-08] MEDS: CARVEDILOL 12.5 MG TABLET PO SCH (09:28)
[2018-06-08] MEDS: POTASSIUM CHLORIDE 20 MEQ TABLET PO SCH (09:28)
[2018-06-08] MEDS: FOLIC ACID 1 MG TABLET PO SCH (09:28)
[2018-06-08] MEDS: SPIRONOLACTONE 25 MG TABLET PO SCH (09:28)
[2018-06-08] MEDS: ATORVASTATIN 10 MG TABLET PO SCH (09:28)
[2018-06-08] MEDS: PANTOPRAZOLE 40 MG TABLET PO SCH (09:28)
[2018-06-08] MEDS: amLODIPine 5 MG TABLET PO SCH (09:28)
[2018-06-08] MEDS: GABAPENTIN 600 MG TABLET PO SCH (09:28)
[2018-06-08] MEDS: ASPIRIN CHEW 81 MG TABLET PO SCH (09:28)
[2018-06-08] MEDS: GEMFIBROZIL 600 MG TABLET PO SCH (09:29)
[2018-06-08] MEDS: INSULIN ASPART PROTAMINE/ASPART 70/30 100 UNIT/ML SUBCUT SCH (09:29)
[2018-06-08] MEDS: SERTRALINE 100 MG TABLET PO SCH (09:29)
[2018-06-08 09:31] LABS: Calcium 8.7 MG/DL (8.5-10.1); Osmolality,Calculated 286.4 MOS/KG (273-304); Potassium 4.5 MMOL/L (3.5-5.1)
[2018-06-08] MEDS: QUINAPRIL 5 MG TABLET PO SCH (11:17)
[2018-06-08 13:06] VITALS: BP 115/71
== END 2018-06-08 12:25 | disposition home health service (06) | DRG 572 ==
LOC: N.3E 12:24
PROVIDERS: ADMIT Family Medicine; ATTEND Family Medicine

== ENCOUNTER 2022-03-18 16:17 | Inpatient (IN) ==
[2022-03-31] MEDS ORDERED: DEXTROSE 10% 250 ML BAG IV PRN (11:31)
[2022-03-31] MEDS ORDERED: GLUCAGON 1 MG VIAL IM PRN (11:31)
[2022-03-31] MEDS ORDERED: DEXTROSE 50% 25 GM/50 ML VIAL IV PRN (11:31)
[2022-03-31 11:54] LABS: Arterial Base Excess iSTAT 0 MMOL/L (-2.5-2.5); Arterial O2 Saturation iSTAT 95 % (95-100); Arterial PCO2 iSTAT 39 MM HG (35-48); Arterial PO2 iSTAT 77 MM HG (80-95); Arterial Total CO2 iSTAT 26 MMO/L (23-27); Arterial pH iSTAT 7.412 (7.35-7.45)
[2022-03-31 12:41] LABS: Basophils % 0.5 % (0.0-0.8); Eosinophils # 0.2 10*3/uL (0.0-0.87); Eosinophils % 2.4 % (0.00-10.9); Hematocrit 38.6 VOL% (42.0-52.0); Hemoglobin 12.2 GM/DL (14.0-18.0); Immature Granulocytes % 0.8 %; Immature Granulocytes Absolute 0.05 #; Lymphocytes # 0.8 10*3/uL (1.4-4.0); Lymphocytes % 13.5 % (21.2-54.2); Mean Corpuscular HGB Conc 31.6 GM/DL (32-36); Mean Corpuscular Volume 85.6 FL (87-102); Mean Platelet Volume 12.3 FL (9.6-12.0); Monocytes # 0.4 10*3/uL (0.11-0.8); Monocytes % 6.6 % (1.7-12.7); Neutrophils % 76.2 % (38.7-73.9); Platelet Count 87 T/CUMM (130-400); Red Blood Count 4.51 MC/CUMM (3.8-5.5); Red Cell Distribution Width 16.3 % (9.3-17.3); White Blood Count 6.2 T/CUMM (4-12)
[2022-03-31] MEDS: SODIUM CHLORIDE 0.9% 1,000 ML IV SCH (12:47)
[2022-03-31 12:57] LABS: Albumin 3.7 G/DL (3.4-5.0); Bilirubin,Total 0.6 MG/DL (0.20-1.00); Calcium 9.3 MG/DL (8.5-10.1); Osmolality,Calculated 294.4 MOS/KG (273-304); Potassium 4.6 MMOL/L (3.5-5.1); Total Protein 7.3 G/DL (6.4-8.2)
[2022-03-31 12:59] LABS: Platelet Estimate Decreased
[2022-03-31 13:00] LABS: Anisocytosis Slight; Macrocytosis Slight; Microcytosis Slight
[2022-03-31] MEDS: CHLORHEXIDINE 4% SOLN 118 ML BOTTLE TOP SCH ×2 (15:00→20:53)
[2022-03-31] MEDS: INSULIN REGULAR 100 UNIT/ML SUBCUT SCH ×2 (15:55→20:55)
[2022-03-31] MEDS: CHLORHEXIDINE 0.12% ORAL RINSE 60 ML BOTTLE SWISH/SPIT SCH (22:02)
[2022-04-01] MEDS ORDERED: PAPAVERINE 60 MG/2 ML VIAL ONE (04:17)
[2022-04-01] MEDS ORDERED: VANCOMYCIN 500 MG VIAL ONE (04:17)
[2022-04-01] MEDS ORDERED: VANCOMYCIN 1,000 MG VIAL ONE ×2 (04:17→11:37)
[2022-04-01] MEDS: CHLORHEXIDINE 4% SOLN 118 ML BOTTLE TOP SCH (04:40)
[2022-04-01] MEDS ORDERED: CEFUROXIME INJ 1,500 MG in SODIUM CHLORIDE 0.9% 100 ML IV ONE (05:00)
[2022-04-01] MEDS ORDERED: DIAZEPAM 5 MG TABLET PO ONE (05:36)
[2022-04-01] MEDS ORDERED: SEVOFLURANE 1 UNIT/15 MINUTE INH ONE (05:48)
[2022-04-01] MEDS ORDERED: VECURONIUM 10 MG VIAL IV ONE (05:48)
[2022-04-01] MEDS ORDERED: MIDAZOLAM 10 MG/2 ML VIAL ONE ×4 (05:49)
[2022-04-01] MEDS ORDERED: SUFentanil 250 MCG/5 ML AMP ONE ×3 (05:49→05:50)
[2022-04-01] MEDS ORDERED: AMINOCAPROIC ACID 5,000 MG/20 ML VIAL ONE (05:50)
[2022-04-01] MEDS ORDERED: ePHEDrine 50 MG/ML VIAL ONE (05:50)
[2022-04-01] MEDS ORDERED: PANTOPRAZOLE 20 MG TABLET PO ONE (06:00)
[2022-04-01] MEDS ORDERED: MINERAL OIL/PETROLATUM OPH OINT 3.5 GM TUBE ONE (06:02)
[2022-04-01] MEDS ORDERED: LIDOCAINE 2% 5 ML VIAL ONE ×2 (06:03→10:43)
[2022-04-01] MEDS ORDERED: ETOMIDATE 40 MG/20 ML VIAL IV ONE (06:03)
[2022-04-01 07:23] LABS: ABG Base Excess -0.7 MMOL/L (-2.5-2.5); ABG HCO3 23.9 MMOL/L (20-26); ABG Oxygen Saturation 99.4 % (95-100); ABG PCO2 34.8 MM HG (35-48); ABG TCO2 20.7 MMOL/L (23-27); Glucose Heart Surgery 192 MG/DL (74-106); Hematocrit Heart Surgery 34.3 PERCENT (42-52); Hemoglobin Heart Surgery 11.1 G/DL (14.0-18.0); Ionized Calcium Arterial 1.17 MMOL/L (1.21-1.46); PCO2 Patient Temp Arterial 34.8 MMHG; Patient Temperature 37 CELCIUS; Potassium Heart/CVR 4.2 MMOL/L (3.5-5.1); Sodium Heart/CVR 142 MMOL/L (135-145)
[2022-04-01 07:35] LABS: Bacteria,Urine Occasional /HPF (Few); RBC,Urine 1 /HPF (0-4); Squamous Epithelial Cell,Urine Occasional /HPF (0-10)
[2022-04-01 07:36] LABS: Bilirubin,Urine Negative (Negative); Blood, Urine Negative (Negative); Glucose,Urine (UA) >1000 mg/dL (Negative); Ketones,Urine Negative (Negative); Nitrite,Urine Negative (Negative); Protein,Urine 100 mg/dL (Negative); Urine Appearance Clear (Clear); Urine Color Yellow (Yellow); Urine Urobilinogen 0.2 eU/dL (<2.0); Urine pH 5.5 (4.5-8.0)
[2022-04-01] MEDS ORDERED: CALCIUM CHLORIDE 1,000 MG/10 ML VIAL IV ONE ×2 (08:06→10:54)
[2022-04-01] MEDS ORDERED: SODIUM BICARBONATE 50 MEQ/50 ML VIAL IV ONE ×2 (08:33→10:44)
[2022-04-01] MEDS ORDERED: POTASSIUM CHLORIDE RIDER 20 MEQ/100 ML PREMIX IV ONE (08:34)
[2022-04-01] MEDS ORDERED: CALCIUM CHLORIDE 1,000 MG/10 ML SYRINGE IV ONE (08:34)
[2022-04-01] MEDS ORDERED: PHENYLEPHRINE DRIP 40 MG/250 ML PREMIX IV ONE (08:34)
[2022-04-01] MEDS ORDERED: NITROPRUSSIDE 50 MG/2 ML VIAL ONE (08:34)
[2022-04-01] MEDS ORDERED: ALBUMIN 5% 12.5 GM/250 ML VIAL IV ONE ×2 (08:35→08:37)
[2022-04-01] MEDS ORDERED: EPINEPHrine 1 MG/10 ML SYRINGE ONE (08:36)
[2022-04-01] MEDS ORDERED: LIDOCAINE 100 MG/5 ML SYRINGE ONE (08:36)
[2022-04-01] MEDS ORDERED: ATROPINE 1 MG/10 ML SYRINGE ONE (08:36)
[2022-04-01 08:44] LABS: Hematocrit Heart Surgery 26.1 PERCENT (42-52); Hemoglobin Heart Surgery 8.4 G/DL (14.0-18.0); PCO2 Patient Temp Venous 39.7 MM HG; PH Patient Temp Venous 7.396; PO2 Patient Temp Venous 38.4 MM HG; Potassium Heart/CVR 4.3 MMOL/L (3.5-5.1); VBG Base Excess -0.3 MEQ/L (0-4); VBG HCO3 23.9 MEQ/L (24-28); VBG Oxygen Saturation 73.7 %; VBG PCO2 43.7 MMHG (41-51); VBG PH 7.368; VBG PO2 44.1 MMHG (17-40); VBG Total CO2 23.5 MMOL/L
[2022-04-01 09:17] LABS: Hematocrit Heart Surgery 28.1 PERCENT (42-52); PCO2 Patient Temp Venous 40.9 MM HG; PH Patient Temp Venous 7.379; PO2 Patient Temp Venous 41.4 MM HG; Potassium Heart/CVR 4.3 MMOL/L (3.5-5.1); VBG Base Excess -0.8 MEQ/L (0-4); VBG HCO3 23.5 MEQ/L (24-28); VBG Oxygen Saturation 79.5 %; VBG PCO2 47.3 MMHG (41-51); VBG PH 7.336; VBG PO2 50.8 MMHG (17-40); VBG Total CO2 23.5 MMOL/L
[2022-04-01 09:47] LABS: Hematocrit Heart Surgery 28.4 PERCENT (42-52); Hemoglobin Heart Surgery 9.2 G/DL (14.0-18.0); PH Patient Temp Venous 7.355; Potassium Heart/CVR 4.8 MMOL/L (3.5-5.1); VBG HCO3 23.2 MEQ/L (24-28); VBG Oxygen Saturation 69.1 %; VBG PCO2 46.1 MMHG (41-51); VBG PH 7.341; VBG PO2 41.8 MMHG (17-40); VBG Total CO2 23.2 MMOL/L
[2022-04-01] MEDS ORDERED: AMIODARONE 150 MG/3 ML VIAL ONE (09:52)
[2022-04-01 10:16] LABS: Hemoglobin Heart Surgery 8.7 G/DL (14.0-18.0); PCO2 Patient Temp Venous 48.7 MM HG; PH Patient Temp Venous 7.333; PO2 Patient Temp Venous 38.8 MM HG; Potassium Heart/CVR 4.9 MMOL/L (3.5-5.1); VBG Base Excess -0.3 MEQ/L (0-4); VBG HCO3 23.7 MEQ/L (24-28); VBG Oxygen Saturation 63.5 %; VBG PCO2 48.7 MMHG (41-51); VBG PH 7.333; VBG PO2 38.8 MMHG (17-40); VBG Total CO2 24.3 MMOL/L
[2022-04-01] MEDS ORDERED: THROMBIN TOPICAL (RECOMBINANT) 5,000 UNIT VIAL TOP ONE ×2 (10:23→10:46)
[2022-04-01 10:39] LABS: ABG Base Excess -0.3 MMOL/L (-2.5-2.5); ABG HCO3 24.2 MMOL/L (20-26); ABG Oxygen Saturation 99.7 % (95-100); ABG PCO2 32.9 MM HG (35-48); ABG PH 7.454 (7.35-7.45); ABG TCO2 21.2 MMOL/L (23-27); Glucose Heart Surgery 275 MG/DL (74-106); Hematocrit Heart Surgery 28.8 PERCENT (42-52); Hemoglobin Heart Surgery 9.3 G/DL (14.0-18.0); Ionized Calcium Arterial 1.16 MMOL/L (1.21-1.46); PCO2 Patient Temp Arterial 32.9 MMHG; PH Patient Temp Arterial 7.454; Patient Temperature 37 CELCIUS; Potassium Heart/CVR 4.5 MMOL/L (3.5-5.1); Sodium Heart/CVR 140 MMOL/L (135-145)
[2022-04-01] MEDS ORDERED: MAGNESIUM SULFATE 5 GM/10 ML VIAL IV ONE (10:43)
[2022-04-01] MEDS ORDERED: DEXTROSE 5% KCL 20 MEQ 20 MEQ/1,000 ML BAG IV ONE (10:43)
[2022-04-01] MEDS ORDERED: methylPREDNISolone SOD SUC 1,000 MG/8 ML VIAL ONE (10:43)
[2022-04-01] MEDS ORDERED: PROTAMINE SULFATE 250 MG/25 ML VIAL IV ONE (10:43)
[2022-04-01] MEDS ORDERED: ALBUMIN 25% 25 GM/100 ML VIAL IV ONE (10:43)
[2022-04-01] MEDS ORDERED: FUROSEMIDE 20 MG/2 ML VIAL ONE (10:44)
[2022-04-01] MEDS ORDERED: MANNITOL 12.5 GM/50 ML VIAL IV ONE (10:44)
[2022-04-01] MEDS ORDERED: HEPARIN 10,000 UNIT/10 ML VIAL ONE (10:44)
[2022-04-01] MEDS ORDERED: PROTAMINE SULFATE 50 MG/5 ML VIAL IV ONE (10:44)
[2022-04-01 11:33] LABS: ABG HCO3 25.3 MMOL/L (20-26); ABG Oxygen Saturation 99.7 % (95-100); ABG PH 7.493 (7.35-7.45); ABG TCO2 21.7 MMOL/L (23-27); Glucose Heart Surgery 265 MG/DL (74-106); Hematocrit Heart Surgery 28.9 PERCENT (42-52); Hemoglobin Heart Surgery 9.3 G/DL (14.0-18.0); PH Patient Temp Arterial 7.493; Patient Temperature 37 CELCIUS; Potassium Heart/CVR 4.3 MMOL/L (3.5-5.1); Sodium Heart/CVR 141 MMOL/L (135-145)
[2022-04-01] MEDS: SODIUM CHLORIDE 0.45% 1,000 ML IV SCH ×2 (12:15→12:40)
[2022-04-01] MEDS ORDERED: NITROPRUSSIDE 100 MG in DEXTROSE 5% 250 ML IV PRN (12:40)
[2022-04-01] MEDS ORDERED: POTASSIUM CHLORIDE RIDER 10 MEQ/100 ML PREMIX IV PRN (12:40)
[2022-04-01] MEDS ORDERED: MAGNESIUM SULF RIDER 4 GM/100 ML PREMIX IV PRN (12:40)
[2022-04-01] MEDS ORDERED: MIDAZOLAM 10 MG/2 ML VIAL IV PRN (12:40)
[2022-04-01] MEDS ORDERED: ONDANSETRON 4 MG/2 ML VIAL IV PRN (12:40)
[2022-04-01] MEDS ORDERED: MIDAZOLAM 2 MG/2 ML VIAL IV PRN (12:40)
[2022-04-01] MEDS ORDERED: MAGNESIUM SULF RIDER 2 GM/50 ML PREMIX IV PRN (12:40)
[2022-04-01] MEDS ORDERED: PHENYLEPHRINE DRIP 40 MG/250 ML PREMIX IV PRN (12:40)
[2022-04-01] MEDS ORDERED: VECURONIUM 10 MG VIAL IV PRN ×2 (12:40)
[2022-04-01] MEDS ORDERED: CALCIUM CHLORIDE 1,000 MG/10 ML SYRINGE IV PRN (12:40)
[2022-04-01] MEDS ORDERED: ACETAMINOPHEN 650 MG SUPP RECTAL PRN (12:40)
[2022-04-01] MEDS ORDERED: ALBUMIN 5% 12.5 GM/250 ML VIAL IV PRN (12:40)
[2022-04-01] MEDS ORDERED: CHLORHEXIDINE 4% SOLN 118 ML BOTTLE TOP PRN (12:40)
[2022-04-01] MEDS ORDERED: DEXTROSE 10% 250 ML BAG IV PRN ×2 (12:40)
[2022-04-01] MEDS ORDERED: INSULIN REGULAR 100 UNIT/ML IV ONE (12:40)
[2022-04-01] MEDS ORDERED: LACTATED RINGERS 250 ML IV PRN (12:40)
[2022-04-01 12:53] LABS: ABG Base Excess 0.2 MMOL/L (-2.5-2.5); ABG HCO3 24.6 MMOL/L (20-26); ABG PCO2 35.1 MM HG (35-48); ABG PH 7.443 (7.35-7.45); Glucose Heart Surgery 269 MG/DL (74-106); Hematocrit Heart Surgery 28.2 PERCENT (42-52); Hemoglobin Heart Surgery 9.1 G/DL (14.0-18.0); Potassium Heart/CVR 4.2 MMOL/L (3.5-5.1)
[2022-04-01 12:54] LABS: Basophils % 0.2 % (0.0-0.8); Eosinophils # 0.1 10*3/uL (0.0-0.87); Eosinophils % 1.2 % (0.00-10.9); Hematocrit 28.5 VOL% (42.0-52.0); Immature Granulocytes % 1.5 %; Immature Granulocytes Absolute 0.09 #; Lymphocytes # 0.4 10*3/uL (1.4-4.0); Mean Corpuscular HGB Conc 31.6 GM/DL (32-36); Mean Corpuscular Volume 85.6 FL (87-102); Monocytes # 0.2 10*3/uL (0.11-0.8); Neutrophils % 86.1 % (38.7-73.9); Platelet Count 79 T/CUMM (130-400); Red Blood Count 3.33 MC/CUMM (3.8-5.5); Red Cell Distribution Width 16.2 % (9.3-17.3)
[2022-04-01 13:05] LABS: PT Patient Result 11.4 SECS (10.5-12.0); Partial Thromboplastin Time 27.1 SECS (23.8-32.1)
[2022-04-01 13:45] LABS: CKMB % 3.4 %
[2022-04-01 13:46] LABS: Platelet Estimate Decreased
[2022-04-01 13:53] LABS: High Sensitive Troponin I* 2473.6 ng/L (0-78)
[2022-04-01 13:56] LABS: Albumin 3.6 G/DL (3.4-5.0); Bilirubin,Total 1.1 MG/DL (0.20-1.00); Calcium 9.8 MG/DL (8.5-10.1); Osmolality,Calculated 295.1 MOS/KG (273-304); Potassium 4.2 MMOL/L (3.5-5.1); Total Protein 6.8 G/DL (6.4-8.2)
[2022-04-01 14:16] LABS: ABG Base Excess -0.9 MMOL/L (-2.5-2.5); ABG HCO3 23.7 MMOL/L (20-26); ABG Oxygen Saturation 98.4 % (95-100); ABG PCO2 38.8 MM HG (35-48); ABG PH 7.395 (7.35-7.45); ABG TCO2 21.8 MMOL/L (23-27); Glucose Heart Surgery 270 MG/DL (74-106); Hematocrit Heart Surgery 28.8 PERCENT (42-52); Hemoglobin Heart Surgery 9.3 G/DL (14.0-18.0); Potassium Heart/CVR 4.2 MMOL/L (3.5-5.1)
[2022-04-01] MEDS: MORPHINE 10 MG/1 ML VIAL IV PRN ×2 (15:30→20:08)
[2022-04-01 17:05] LABS: ABG Base Excess -3.6 MMOL/L (-2.5-2.5); ABG HCO3 21.4 MMOL/L (20-26); ABG Oxygen Saturation 94.2 % (95-100); ABG PCO2 46.4 MM HG (35-48); ABG PH 7.305 (7.35-7.45); ABG PO2 87.1 MM HG (80-95); ABG TCO2 20.2 MMOL/L (23-27); Glucose Heart Surgery 341 MG/DL (74-106); Hematocrit Heart Surgery 43.4 PERCENT (42-52); Hemoglobin Heart Surgery 14.1 G/DL (14.0-18.0)
[2022-04-01] MEDS: INSULIN REGULAR DRIP 100 ML IV SCH (17:51)
[2022-04-01 18:47] LABS: Basophils % 0.2 % (0.0-0.8); Eosinophils % 0.2 % (0.00-10.9); Hematocrit 30.2 VOL% (42.0-52.0); Hemoglobin 9.4 GM/DL (14.0-18.0); Immature Granulocytes Absolute 0.12 #; Lymphocytes # 0.3 10*3/uL (1.4-4.0); Lymphocytes % 2.9 % (21.2-54.2); Mean Corpuscular HGB Conc 31.1 GM/DL (32-36); Mean Corpuscular Volume 86.8 FL (87-102); Mean Platelet Volume 12.4 FL (9.6-12.0); Monocytes # 0.1 10*3/uL (0.11-0.8); Monocytes % 0.5 % (1.7-12.7); Neutrophils % 95.2 % (38.7-73.9); Platelet Count 122 T/CUMM (130-400); Red Blood Count 3.48 MC/CUMM (3.8-5.5); Red Cell Distribution Width 16.2 % (9.3-17.3); White Blood Count 11.6 T/CUMM (4-12)
[2022-04-01 19:08] LABS: Band Neutrophils 2 % (0-10); Lymphocytes 1 % (20-55); Total Cells Counted 100
[2022-04-01 19:09] LABS: Platelet Estimate Adequate
[2022-04-01] MEDS: CEFUROXIME INJ 1,500 MG in SODIUM CHLORIDE 0.9% 100 ML IV SCH (19:35)
[2022-04-01] MEDS: INSULIN REGULAR 100 UNIT/ML IV PRN (19:45)
[2022-04-01 20:44] LABS: ABG Base Excess -3.5 MMOL/L (-2.5-2.5); ABG HCO3 21.5 MMOL/L (20-26); ABG Oxygen Saturation 96.5 % (95-100); ABG PCO2 42.9 MM HG (35-48); ABG PH 7.325 (7.35-7.45); ABG PO2 97.8 MM HG (80-95); ABG TCO2 20.8 MMOL/L (23-27); Glucose Heart Surgery 274 MG/DL (74-106); Hematocrit Heart Surgery 26.8 PERCENT (42-52); Hemoglobin Heart Surgery 8.6 G/DL (14.0-18.0); Potassium Heart/CVR 4.4 MMOL/L (3.5-5.1)
[2022-04-01 21:15] LABS: CKMB % 2.63 %; High Sensitive Troponin I* 2147.8 ng/L (0-78)
[2022-04-01] MEDS: CHLORHEXIDINE 0.12% ORAL RINSE 60 ML BOTTLE SWISH/SPIT SCH (21:55)
[2022-04-01 22:36] LABS: ABG Base Excess -2.3 MMOL/L (-2.5-2.5); ABG HCO3 22.4 MMOL/L (20-26); ABG Oxygen Saturation 95.2 % (95-100); ABG PH 7.335 (7.35-7.45); ABG PO2 86.4 MM HG (80-95); Glucose Heart Surgery 231 MG/DL (74-106); Hematocrit Heart Surgery 25.8 PERCENT (42-52); Hemoglobin Heart Surgery 8.3 G/DL (14.0-18.0); Potassium Heart/CVR 4.3 MMOL/L (3.5-5.1)
[2022-04-01] MEDS: POTASSIUM CHLORIDE RIDER 20 MEQ/100 ML PREMIX IV PRN (22:53)
[2022-04-01 23:41] LABS: ABG Base Excess -1.3 MMOL/L (-2.5-2.5); ABG HCO3 23.3 MMOL/L (20-26); ABG Oxygen Saturation 95.5 % (95-100); ABG PCO2 43.8 MM HG (35-48); ABG PH 7.351 (7.35-7.45); ABG PO2 86.4 MM HG (80-95); ABG TCO2 22.6 MMOL/L (23-27); Glucose Heart Surgery 210 MG/DL (74-106); Hematocrit Heart Surgery 26.2 PERCENT (42-52); Hemoglobin Heart Surgery 8.4 G/DL (14.0-18.0); Potassium Heart/CVR 4.8 MMOL/L (3.5-5.1)
[2022-04-02] MEDS ORDERED: FUROSEMIDE 40 MG/4 ML VIAL IV ONE (00:41)
[2022-04-02 01:31] LABS: ABG HCO3 23.5 MMOL/L (20-26); ABG Oxygen Saturation 96.8 % (95-100); ABG PCO2 40.7 MM HG (35-48); ABG PH 7.378 (7.35-7.45); ABG PO2 95.7 MM HG (80-95); ABG TCO2 22.3 MMOL/L (23-27); Glucose Heart Surgery 200 MG/DL (74-106); Hematocrit Heart Surgery 26.3 PERCENT (42-52); Hemoglobin Heart Surgery 8.5 G/DL (14.0-18.0); Potassium Heart/CVR 4.4 MMOL/L (3.5-5.1)
[2022-04-02] MEDS: POTASSIUM CHLORIDE RIDER 20 MEQ/100 ML PREMIX IV PRN ×2 (01:38→04:11)
[2022-04-02] MEDS: INSULIN REGULAR 100 UNIT/ML IV PRN ×2 (01:51→03:50)
[2022-04-02 03:44] LABS: ABG Base Excess -0.9 MMOL/L (-2.5-2.5); ABG HCO3 23.6 MMOL/L (20-26); ABG Oxygen Saturation 93.4 % (95-100); ABG PCO2 42.7 MM HG (35-48); ABG PH 7.365 (7.35-7.45); ABG PO2 74.4 MM HG (80-95); ABG TCO2 22.7 MMOL/L (23-27); Glucose Heart Surgery 173 MG/DL (74-106); Hematocrit Heart Surgery 26.3 PERCENT (42-52); Hemoglobin Heart Surgery 8.5 G/DL (14.0-18.0); Potassium Heart/CVR 4.2 MMOL/L (3.5-5.1)
[2022-04-02 03:47] LABS: Basophils % 0.1 % (0.0-0.8); Hematocrit 26.1 VOL% (42.0-52.0); Hemoglobin 8.3 GM/DL (14.0-18.0); Lymphocytes # 0.4 10*3/uL (1.4-4.0); Lymphocytes % 4.1 % (21.2-54.2); Mean Corpuscular HGB Conc 31.8 GM/DL (32-36); Mean Corpuscular Volume 86.1 FL (87-102); Mean Platelet Volume 11.3 FL (9.6-12.0); Monocytes # 0.4 10*3/uL (0.11-0.8); Monocytes % 4.4 % (1.7-12.7); Neutrophils % 90.4 % (38.7-73.9); Platelet Count 127 T/CUMM (130-400); Red Blood Count 3.03 MC/CUMM (3.8-5.5); Red Cell Distribution Width 16.4 % (9.3-17.3)
[2022-04-02] MEDS: INSULIN REGULAR DRIP 100 ML IV SCH ×2 (04:03→20:11)
[2022-04-02 04:05] LABS: Lymphocytes 1 % (20-55); Total Cells Counted 100
[2022-04-02 04:07] LABS: Hypochromia Slight; Microcytosis Slight
[2022-04-02 04:13] LABS: Albumin 3.6 G/DL (3.4-5.0); Bilirubin,Direct 0.14 MG/DL (0.0-0.20); Bilirubin,Total 0.5 MG/DL (0.20-1.00); Osmolality,Calculated 289.4 MOS/KG (273-304); Potassium 4.4 MMOL/L (3.5-5.1); Total Protein 6.3 G/DL (6.4-8.2)
[2022-04-02 04:15] LABS: CKMB % 1.79 %
[2022-04-02 04:16] LABS: High Sensitive Troponin I* 1714.2 ng/L (0-78)
[2022-04-02] MEDS: MORPHINE 10 MG/1 ML VIAL IV PRN (06:30)
[2022-04-02] MEDS: CEFUROXIME INJ 1,500 MG in SODIUM CHLORIDE 0.9% 100 ML IV SCH ×2 (06:45→19:28)
[2022-04-02] MEDS ORDERED: oxyCODONE/ACETAMINOPHEN 5-325 MG TABLET PO PRN ×2 (07:22)
[2022-04-02] MEDS: CHLORHEXIDINE 0.12% ORAL RINSE 60 ML BOTTLE SWISH/SPIT SCH ×3 (09:00→21:49)
[2022-04-02] MEDS ORDERED: ROSUVASTATIN 20 MG TABLET PO SCH (09:00)
[2022-04-02] MEDS: ASCORBIC ACID 500 MG TABLET PO SCH ×2 (09:30→21:50)
[2022-04-02] MEDS: ASPIRIN EC 81 MG TABLET PO SCH (09:33)
[2022-04-02] MEDS: GABAPENTIN 600 MG TABLET PO SCH ×2 (09:34→21:49)
[2022-04-02] MEDS: PANTOPRAZOLE 40 MG TABLET PO SCH (09:34)
[2022-04-02] MEDS: carvediloL 12.5 MG TABLET PO SCH ×2 (09:35→21:49)
[2022-04-02] MEDS: ATORVASTATIN 40 MG TABLET PO SCH ×2 (09:36→21:49)
[2022-04-02] MEDS: SERTRALINE 100 MG TABLET PO SCH (09:36)
[2022-04-02] MEDS ORDERED: NITROPRUSSIDE 50 MG/2 ML VIAL ONE (10:19)
[2022-04-02 12:29] LABS: CKMB % 1.33 %; High Sensitive Troponin I* 1206.6 ng/L (0-78)
[2022-04-02] MEDS ORDERED: ACETAMINOPHEN 325 MG TABLET PO PRN (15:25)
[2022-04-02] MEDS ORDERED: SODIUM CHLOR 0.45% KCL 20 MEQ 20 MEQ/1,000 ML BAG IV SCH (15:25)
[2022-04-02] MEDS ORDERED: MAGNESIUM HYDROXIDE SUSP 30 ML UDCUP PO PRN (15:25)
[2022-04-02] MEDS ORDERED: MAGNESIUM SULF RIDER 2 GM/50 ML PREMIX IV PRN (15:25)
[2022-04-02] MEDS ORDERED: GLUCAGON 1 MG VIAL IM PRN (15:25)
[2022-04-02] MEDS ORDERED: ALUMINUM/MAGNES/SIMETH MAX STR 30 ML UDCUP PO PRN (15:25)
[2022-04-02] MEDS ORDERED: MAGNESIUM SULF RIDER 4 GM/100 ML PREMIX IV PRN (15:25)
[2022-04-02] MEDS ORDERED: ONDANSETRON 4 MG/2 ML VIAL IV PRN (15:25)
[2022-04-02] MEDS ORDERED: DEXTROSE 10% 250 ML BAG IV PRN ×2 (15:32→20:17)
[2022-04-02] MEDS ORDERED: gemfibroziL 600 MG TABLET PO SCH (16:30)
[2022-04-02] MEDS: gemfibroziL 600 MG TABLET PO SCH ×2 (17:58→21:49)
[2022-04-02] MEDS: FERROUS SULFATE 325 MG TABLET PO SCH (19:28)
[2022-04-02] MEDS: DOCUSATE SODIUM 100 MG CAPSULE PO SCH (19:28)
[2022-04-02] MEDS: FOLIC ACID 1 MG TABLET PO SCH (19:30)
[2022-04-02] MEDS: SODIUM CHLORIDE 0.9% 1,000 ML IV SCH (20:09)
[2022-04-02] MEDS: SODIUM CHLORIDE 0.45% 1,000 ML IV SCH ×2 (20:10→20:11)
[2022-04-03 04:58] LABS: Basophils % 0.1 % (0.0-0.8); Hemoglobin 7.5 GM/DL (14.0-18.0); Immature Granulocytes % 1.1 %; Lymphocytes # 0.6 10*3/uL (1.4-4.0); Lymphocytes % 6.2 % (21.2-54.2); Mean Corpuscular HGB Conc 31.3 GM/DL (32-36); Mean Corpuscular Volume 87.6 FL (87-102); Mean Platelet Volume 12.6 FL (9.6-12.0); Monocytes # 0.6 10*3/uL (0.11-0.8); Monocytes % 6.4 % (1.7-12.7); NRBC # 0.02 10*3/uL; Neutrophils % 86.2 % (38.7-73.9); Platelet Count 85 T/CUMM (130-400); Red Blood Count 2.74 MC/CUMM (3.8-5.5); Red Cell Distribution Width 16.7 % (9.3-17.3); White Blood Count 9.1 T/CUMM (4-12)
[2022-04-03 05:17] LABS: Alanine Aminotransferase 32 U/L (16-61); Albumin 3.3 G/DL (3.4-5.0); Alkaline Phosphatase 63 U/L (45-117); Aspartate Amino Transferase 42 U/L (0-37); Bilirubin,Direct 0.17 MG/DL (0.0-0.20); Bilirubin,Indirect 0.3 MG/DL (0.0-1.0); Bilirubin,Total 0.4 MG/DL (0.20-1.00); Calcium 8.6 MG/DL (8.5-10.1); Osmolality,Calculated 292.5 MOS/KG (273-304); Platelet Estimate Decreased; Potassium 4.3 MMOL/L (3.5-5.1); Total Protein 6.4 G/DL (6.4-8.2)
[2022-04-03] MEDS ORDERED: FUROSEMIDE 40 MG/4 ML VIAL IV ONE (06:00)
[2022-04-03] MEDS: FOLIC ACID 1 MG TABLET PO SCH (08:45)
[2022-04-03] MEDS: PANTOPRAZOLE 40 MG TABLET PO SCH (08:45)
[2022-04-03] MEDS: INSULIN GLARGINE 100 UNIT/ML SUBCUT SCH (08:45)
[2022-04-03] MEDS: DOCUSATE SODIUM 100 MG CAPSULE PO SCH (08:46)
[2022-04-03] MEDS: ASPIRIN EC 81 MG TABLET PO SCH (08:46)
[2022-04-03] MEDS: GABAPENTIN 600 MG TABLET PO SCH ×2 (08:46→21:40)
[2022-04-03] MEDS: ASCORBIC ACID 500 MG TABLET PO SCH ×2 (08:46→21:40)
[2022-04-03] MEDS: carvediloL 12.5 MG TABLET PO SCH ×2 (08:47→21:40)
[2022-04-03] MEDS: ATORVASTATIN 40 MG TABLET PO SCH ×2 (08:47→21:40)
[2022-04-03] MEDS: SERTRALINE 100 MG TABLET PO SCH (08:47)
[2022-04-03] MEDS: FERROUS SULFATE 325 MG TABLET PO SCH (08:47)
[2022-04-03] MEDS: CHLORHEXIDINE 0.12% ORAL RINSE 60 ML BOTTLE SWISH/SPIT SCH ×2 (08:48→21:42)
[2022-04-03] MEDS: gemfibroziL 600 MG TABLET PO SCH ×2 (08:48→21:40)
[2022-04-03] MEDS: INSULIN REGULAR 100 UNIT/ML SUBCUT SCH ×3 (13:02→21:40)
[2022-04-03] MEDS ORDERED: INSULIN REGULAR 100 UNIT/ML SUBCUT SCH (16:30)
[2022-04-04 05:04] LABS: Basophils % 0.1 % (0.0-0.8); Eosinophils % 0.2 % (0.00-10.9); Hematocrit 25.3 VOL% (42.0-52.0); Hemoglobin 7.9 GM/DL (14.0-18.0); Immature Granulocytes % 2.2 %; Lymphocytes # 1.2 10*3/uL (1.4-4.0); Lymphocytes % 12.5 % (21.2-54.2); Mean Corpuscular HGB Conc 31.2 GM/DL (32-36); Mean Corpuscular Volume 86.1 FL (87-102); Mean Platelet Volume 12.7 FL (9.6-12.0); Monocytes # 0.8 10*3/uL (0.11-0.8); Monocytes % 8.5 % (1.7-12.7); NRBC # 0.04 10*3/uL; Neutrophils % 76.5 % (38.7-73.9); Platelet Count 89 T/CUMM (130-400); Red Blood Count 2.94 MC/CUMM (3.8-5.5); Red Cell Distribution Width 16.3 % (9.3-17.3); White Blood Count 9.2 T/CUMM (4-12)
[2022-04-04 05:22] LABS: Albumin 3.3 G/DL (3.4-5.0); Bilirubin,Direct 0.15 MG/DL (0.0-0.20); Bilirubin,Total 0.4 MG/DL (0.20-1.00); Calcium 9.2 MG/DL (8.5-10.1); Osmolality,Calculated 288.1 MOS/KG (273-304); Potassium 3.6 MMOL/L (3.5-5.1); Total Protein 6.7 G/DL (6.4-8.2)
[2022-04-04 05:29] LABS: Platelet Estimate Decreased
[2022-04-04 05:34] LABS: Alanine Aminotransferase 30 U/L (16-61); Albumin 3.2 G/DL (3.4-5.0); Alkaline Phosphatase 73 U/L (45-117); Aspartate Amino Transferase 24 U/L (0-37); Bilirubin,Indirect 0.3 MG/DL (0.0-1.0); Total Protein 6.7 G/DL (6.4-8.2)
[2022-04-04] MEDS: POTASSIUM CHLORIDE 20 MEQ TABLET PO PRN ×2 (06:05→08:59)
[2022-04-04] MEDS: INSULIN REGULAR 100 UNIT/ML SUBCUT SCH ×5 (08:27→20:41)
[2022-04-04] MEDS: CHLORHEXIDINE 0.12% ORAL RINSE 60 ML BOTTLE SWISH/SPIT SCH ×3 (08:27→20:40)
[2022-04-04] MEDS: DOCUSATE SODIUM 100 MG CAPSULE PO SCH (08:59)
[2022-04-04] MEDS: ASCORBIC ACID 500 MG TABLET PO SCH ×2 (08:59→20:40)
[2022-04-04] MEDS: carvediloL 12.5 MG TABLET PO SCH ×2 (08:59→20:40)
[2022-04-04] MEDS: ASPIRIN EC 81 MG TABLET PO SCH (08:59)
[2022-04-04] MEDS: SERTRALINE 100 MG TABLET PO SCH (08:59)
[2022-04-04] MEDS: FOLIC ACID 1 MG TABLET PO SCH (08:59)
[2022-04-04] MEDS: PANTOPRAZOLE 40 MG TABLET PO SCH (08:59)
[2022-04-04] MEDS: gemfibroziL 600 MG TABLET PO SCH ×2 (08:59→20:40)
[2022-04-04] MEDS: FERROUS SULFATE 325 MG TABLET PO SCH (08:59)
[2022-04-04] MEDS: INSULIN GLARGINE 100 UNIT/ML SUBCUT SCH (09:00)
[2022-04-04] MEDS: GABAPENTIN 600 MG TABLET PO SCH ×2 (09:00→20:40)
[2022-04-04] MEDS: ATORVASTATIN 40 MG TABLET PO SCH ×2 (09:03→20:40)
[2022-04-04] MEDS ORDERED: POLYETHYLENE GLYCOL POWDER 17 GM PACK PO PRN (09:15)
[2022-04-05 04:31] LABS: Basophils % 0.4 % (0.0-0.8); Eosinophils # 0.1 10*3/uL (0.0-0.87); Eosinophils % 1.6 % (0.00-10.9); Hematocrit 26.4 VOL% (42.0-52.0); Hemoglobin 8.3 GM/DL (14.0-18.0); Immature Granulocytes % 2.4 %; Immature Granulocytes Absolute 0.19 #; Lymphocytes # 1.5 10*3/uL (1.4-4.0); Lymphocytes % 18.5 % (21.2-54.2); Mean Corpuscular HGB Conc 31.4 GM/DL (32-36); Mean Platelet Volume 12.1 FL (9.6-12.0); Monocytes # 0.6 10*3/uL (0.11-0.8); Monocytes % 7.2 % (1.7-12.7); NRBC # 0.11 10*3/uL; Neutrophils % 69.9 % (38.7-73.9); Platelet Count 98 T/CUMM (130-400); Red Blood Count 3.07 MC/CUMM (3.8-5.5); Red Cell Distribution Width 16.3 % (9.3-17.3); White Blood Count 7.9 T/CUMM (4-12)
[2022-04-05 04:53] LABS: Albumin 3.1 G/DL (3.4-5.0); Bilirubin,Total 0.6 MG/DL (0.20-1.00); Calcium 8.8 MG/DL (8.5-10.1); Osmolality,Calculated 285.7 MOS/KG (273-304); Potassium 3.7 MMOL/L (3.5-5.1); Total Protein 6.7 G/DL (6.4-8.2)
[2022-04-05 05:26] LABS: Platelet Estimate Decreased
[2022-04-05] MEDS: POTASSIUM CHLORIDE 20 MEQ TABLET PO PRN (06:07)
[2022-04-05] MEDS ORDERED: LACTULOSE 20 GM/30 ML UDCUP PO PRN (07:40)
[2022-04-05] MEDS: INSULIN GLARGINE 100 UNIT/ML SUBCUT SCH (08:13)
[2022-04-05] MEDS: ATORVASTATIN 40 MG TABLET PO SCH ×2 (08:14→21:16)
[2022-04-05] MEDS: INSULIN REGULAR 100 UNIT/ML SUBCUT SCH ×4 (08:14→21:16)
[2022-04-05] MEDS: gemfibroziL 600 MG TABLET PO SCH ×2 (08:15→21:18)
[2022-04-05] MEDS: GABAPENTIN 600 MG TABLET PO SCH ×2 (08:15→21:18)
[2022-04-05] MEDS: SERTRALINE 100 MG TABLET PO SCH (08:15)
[2022-04-05] MEDS: ASCORBIC ACID 500 MG TABLET PO SCH ×2 (08:15→21:18)
[2022-04-05] MEDS: FERROUS SULFATE 325 MG TABLET PO SCH (08:15)
[2022-04-05] MEDS: DOCUSATE SODIUM 100 MG CAPSULE PO SCH ×2 (08:15→21:15)
[2022-04-05] MEDS: FOLIC ACID 1 MG TABLET PO SCH (08:15)
[2022-04-05] MEDS: PANTOPRAZOLE 40 MG TABLET PO SCH (08:15)
[2022-04-05] MEDS: ASPIRIN EC 81 MG TABLET PO SCH (08:15)
[2022-04-05] MEDS: carvediloL 12.5 MG TABLET PO SCH ×2 (08:15→21:15)
[2022-04-05] MEDS: POLYETHYLENE GLYCOL POWDER 17 GM PACK PO SCH (08:16)
[2022-04-05] MEDS: CHLORHEXIDINE 0.12% ORAL RINSE 60 ML BOTTLE SWISH/SPIT SCH ×2 (08:18→21:18)
[2022-04-05] MEDS: ZALEPLON 5 MG CAPSULE PO PRN ×2 (20:50)
[2022-04-06] MEDS: ZALEPLON 5 MG CAPSULE PO PRN (00:14)
[2022-04-06 04:15] LABS: Basophils % 0.4 % (0.0-0.8); Eosinophils # 0.2 10*3/uL (0.0-0.87); Eosinophils % 2.5 % (0.00-10.9); Hematocrit 27.2 VOL% (42.0-52.0); Hemoglobin 8.6 GM/DL (14.0-18.0); Immature Granulocytes % 2.7 %; Immature Granulocytes Absolute 0.22 #; Lymphocytes # 1.3 10*3/uL (1.4-4.0); Lymphocytes % 16.1 % (21.2-54.2); Mean Corpuscular HGB Conc 31.6 GM/DL (32-36); Mean Corpuscular Volume 85.5 FL (87-102); Mean Platelet Volume 12.7 FL (9.6-12.0); Monocytes # 0.6 10*3/uL (0.11-0.8); Monocytes % 7.1 % (1.7-12.7); NRBC # 0.09 10*3/uL; Neutrophils % 71.2 % (38.7-73.9); Platelet Count 111 T/CUMM (130-400); Red Blood Count 3.18 MC/CUMM (3.8-5.5); Red Cell Distribution Width 16.6 % (9.3-17.3); White Blood Count 8.1 T/CUMM (4-12)
[2022-04-06 04:31] LABS: Hypochromia 1+; Microcytosis 1+
[2022-04-06 04:46] LABS: Alanine Aminotransferase 36 U/L (16-61); Albumin 3.1 G/DL (3.4-5.0); Alkaline Phosphatase 87 U/L (45-117); Aspartate Amino Transferase 23 U/L (0-37); Bilirubin,Indirect 0.6 MG/DL (0.0-1.0); Blood Urea Nitrogen 41 MG/DL (7-18); Calcium 8.6 MG/DL (8.5-10.1); Carbon Dioxide 25 MMOL/L (21-32); Chloride 104 MMOL/L (98-107); Glucose 191 MG/DL (74-106); Osmolality,Calculated 287.8 MOS/KG (273-304); Potassium 3.9 MMOL/L (3.5-5.1); Sodium 137 MMOL/L (136-145); Total Protein 6.7 G/DL (6.4-8.2)
[2022-04-06 07:16] VITALS: BP 147/57
[2022-04-06] MEDS: INSULIN REGULAR 100 UNIT/ML SUBCUT SCH (08:09)
[2022-04-06] MEDS: INSULIN GLARGINE 100 UNIT/ML SUBCUT SCH (08:10)
[2022-04-06] MEDS: DOCUSATE SODIUM 100 MG CAPSULE PO SCH (08:11)
[2022-04-06] MEDS: ASCORBIC ACID 500 MG TABLET PO SCH (08:11)
[2022-04-06] MEDS: carvediloL 12.5 MG TABLET PO SCH (08:11)
[2022-04-06] MEDS: gemfibroziL 600 MG TABLET PO SCH (08:11)
[2022-04-06] MEDS: PANTOPRAZOLE 40 MG TABLET PO SCH (08:11)
[2022-04-06] MEDS: ASPIRIN EC 81 MG TABLET PO SCH (08:11)
[2022-04-06] MEDS: GABAPENTIN 600 MG TABLET PO SCH (08:11)
[2022-04-06] MEDS: FERROUS SULFATE 325 MG TABLET PO SCH (08:11)
[2022-04-06] MEDS: FOLIC ACID 1 MG TABLET PO SCH (08:11)
[2022-04-06] MEDS: SERTRALINE 100 MG TABLET PO SCH (08:11)
[2022-04-06] MEDS: CHLORHEXIDINE 0.12% ORAL RINSE 60 ML BOTTLE SWISH/SPIT SCH (08:12)
[2022-04-06] MEDS: POLYETHYLENE GLYCOL POWDER 17 GM PACK PO SCH (08:12)
== END 2022-04-06 11:10 | disposition home health service (06) | DRG 236 ==
LOC: N.TELEN 03-31 10:59 → N.CVR 04-01 11:15 → N.ICU 04-02 11:17

== ENCOUNTER 2022-06-26 13:41 | Inpatient (IN) ==
[2022-06-26 14:19] LABS: PT Patient Result 10.8 SECS (10.1-12.1); Partial Thromboplastin Time 26.7 SECS (23.7-32.9)
[2022-06-26 14:29] LABS: Alanine Aminotransferase 56 U/L (16-61); Alkaline Phosphatase 153 U/L (45-117); Aspartate Amino Transferase 108 U/L (0-37); Basophils # 0.1 10*3/uL (0.0-0.2); Basophils % 0.8 % (0.0-0.8); Blood Urea Nitrogen 22 MG/DL (7-18); Calcium 8.7 MG/DL (8.5-10.1); Carbon Dioxide 21 MMOL/L (21-32); Chloride 103 MMOL/L (98-107); Eosinophils # 0.3 10*3/uL (0.0-0.87); Eosinophils % 3.6 % (0.00-10.9); Glucose 286 MG/DL (74-106); Hematocrit 51.3 VOL% (42.0-52.0); Hemoglobin 15.6 GM/DL (14.0-18.0); Immature Granulocytes % 1.5 %; Immature Granulocytes Absolute 0.13 #; Lymphocytes # 1.7 10*3/uL (1.4-4.0); Lymphocytes % 19.3 % (21.2-54.2); Mean Corpuscular HGB Conc 30.4 GM/DL (32-36); Mean Corpuscular Volume 85.1 FL (87-102); Monocytes # 0.7 10*3/uL (0.11-0.8); Monocytes % 7.7 % (1.7-12.7); Neutrophils % 67.1 % (38.7-73.9); Osmolality,Calculated 282.1 MOS/KG (273-304); Platelet Count 131 T/CUMM (130-400); Potassium 5.3 MMOL/L (3.5-5.1); Red Blood Count 6.03 MC/CUMM (3.8-5.5); Red Cell Distribution Width 17.3 % (9.3-17.3); Sodium 135 MMOL/L (136-145)
[2022-06-26 14:30] LABS: Mucus,Urine Occasional /LPF (Occasional); RBC,Urine 2 /HPF (0-4)
[2022-06-26 14:32] LABS: Bilirubin,Urine Negative (Negative); Blood, Urine Trace mg/dL (Negative); Glucose,Urine (UA) >=1000 mg/dL (Negative); Ketones,Urine Negative (Negative); Nitrite,Urine Negative (Negative); Protein,Urine >=300 mg/dL (Negative); Urine Appearance Clear (Clear); Urine Color Yellow (Yellow); Urine Urobilinogen 0.2 eU/dL (<2.0); Urine pH 5.5 (4.5-8.0)
[2022-06-26 14:37] LABS: Barbiturates Screen,Urine Negative (Negative); Benzodiazepines Screen,Urine Negative (Negative); Cannabinoid Screen,Urine Negative (Negative); Opiate Screen,Urine Negative (Negative); Phencyclidine Screen,Urine Negative (Negative)
[2022-06-26 14:43] LABS: Arterial Base Excess iSTAT -5 MMOL/L (-2.5-2.5); Arterial Bicarbonate iSTAT 21.8 MMOL/L (20-26); Arterial O2 Saturation iSTAT 97 % (95-100); Arterial PCO2 iSTAT 44 MM HG (35-48); Arterial PO2 iSTAT 97 MM HG (80-95); Arterial Total CO2 iSTAT 23 MMO/L (23-27)
[2022-06-26] MEDS ORDERED: HEPARIN/NACL 0.9% 2 UNITS/ML 2,000 UNIT/1,000 ML BAG IV ONE (14:46)
[2022-06-26] MEDS ORDERED: ONDANSETRON 4 MG/2 ML VIAL IV PRN (15:12)
[2022-06-26] MEDS ORDERED: FUROSEMIDE 40 MG/4 ML VIAL ONE (15:29)
[2022-06-26] MEDS ORDERED: SODIUM CHLORIDE 0.45% 1,000 ML IV SCH (15:30)
[2022-06-26] MEDS: MIDAZOLAM 100 MG in SODIUM CHLORIDE 0.9% 80 ML IV PRN (17:00)
[2022-06-26] MEDS ORDERED: NOREPINEPHRINE 4 MG/4 ML VIAL IV ONE (17:11)
[2022-06-26] MEDS: NOREPINEPHRINE 8 MG in SODIUM CHLORIDE 0.9% 242 ML IV PRN (17:15)
[2022-06-26] MEDS ORDERED: SODIUM CHLORIDE 0.9% 1,000 ML IV ONE (17:17)
[2022-06-26] MEDS ORDERED: ATROPINE 1 MG/10 ML SYRINGE ONE (17:31)
[2022-06-26] MEDS ORDERED: INSULIN REGULAR 100 UNIT/ML IV PRN (17:35)
[2022-06-26 17:37] LABS: Arterial Base Excess iSTAT -5 MMOL/L (-2.5-2.5); Arterial Bicarbonate iSTAT 21.8 MMOL/L (20-26); Arterial O2 Saturation iSTAT 98 % (95-100); Arterial PCO2 iSTAT 46 MM HG (35-48); Arterial PO2 iSTAT 120 MM HG (80-95); Arterial Total CO2 iSTAT 23 MMO/L (23-27); Arterial pH iSTAT 7.286 (7.35-7.45)
[2022-06-26 17:42] LABS: ABG Base Excess -5.6 MMOL/L (-2.5-2.5); ABG HCO3 19.7 MMOL/L (20-26); ABG Oxygen Saturation 88.3 % (95-100); ABG PCO2 51.1 MM HG (35-48); ABG PH 7.256 (7.35-7.45); ABG PO2 68.9 MM HG (80-95); ABG TCO2 19.2 MMOL/L (23-27)
[2022-06-26] MEDS ORDERED: MAGNESIUM SULF RIDER 4 GM/100 ML PREMIX IV PRN (18:19)
[2022-06-26] MEDS ORDERED: POTASSIUM CHLORIDE RIDER 20 MEQ/100 ML PREMIX IV PRN (18:19)
[2022-06-26] MEDS ORDERED: MAGNESIUM SULF RIDER 2 GM/50 ML PREMIX IV PRN (18:19)
[2022-06-26] MEDS ORDERED: POTASSIUM CHLORIDE RIDER 10 MEQ/100 ML PREMIX IV PRN (18:19)
[2022-06-26] MEDS: HEPARIN DRIP 25,000 UNITS/500 ML PREMIX IV SCH (18:24)
[2022-06-26 18:26] LABS: PT Patient Result 10.9 SECS (10.1-12.1); Partial Thromboplastin Time 26.8 SECS (23.7-32.9)
[2022-06-26] MEDS: fentaNYL INJ 1,250 MCG in SODIUM CHLORIDE 0.9% 225 ML IV PRN (18:33)
[2022-06-26 18:34] LABS: Calcium 7.6 MG/DL (8.5-10.1); Osmolality,Calculated 280.4 MOS/KG (273-304)
[2022-06-26 18:37] LABS: Potassium 6.2 MMOL/L (3.5-5.1)
[2022-06-26 18:37] LABS: Basophils # 0.1 10*3/uL (0.0-0.2); Basophils % 0.5 % (0.0-0.8); Eosinophils # 0.2 10*3/uL (0.0-0.87); Eosinophils % 0.8 % (0.00-10.9); Hematocrit 53.1 VOL% (42.0-52.0); Hemoglobin 16.4 GM/DL (14.0-18.0); Immature Granulocytes % 1.3 %; Immature Granulocytes Absolute 0.27 #; Mean Corpuscular HGB Conc 30.9 GM/DL (32-36); Mean Corpuscular Volume 84.8 FL (87-102); Monocytes # 0.9 10*3/uL (0.11-0.8); Monocytes % 4.5 % (1.7-12.7); NRBC # 0.02 10*3/uL; Neutrophils % 87.9 % (38.7-73.9); Platelet Count 178 T/CUMM (130-400); Red Blood Count 6.26 MC/CUMM (3.8-5.5); Red Cell Distribution Width 17.2 % (9.3-17.3); White Blood Count 20.1 T/CUMM (4-12)
[2022-06-26] MEDS ORDERED: INSULIN REGULAR 10 UNIT, CALCIUM GLUCONATE 1,000 MG in DEXTROSE 10% 250 ML IV ONE (18:38)
[2022-06-26 18:41] LABS: Lymphocytes 5 % (20-55); Platelet Estimate Adequate; Total Cells Counted 100
[2022-06-26 19:05] LABS: Phosphorous 5.6 MG/DL (2.5-4.9)
[2022-06-26] MEDS ORDERED: FUROSEMIDE 40 MG/4 ML VIAL IV ONE (19:05)
[2022-06-26] MEDS: MINERAL OIL/PETROLATUM OPH OINT 3.5 GM TUBE BOTH EYES SCH (20:05)
[2022-06-26] MEDS: INSULIN REGULAR 100 UNIT/ML IV SCH ×2 (20:42→23:43)
[2022-06-26] MEDS: carvediloL 12.5 MG TABLET PO SCH (22:44)
[2022-06-26] MEDS: MEPERIDINE 25 MG/1 ML VIAL IV PRN (23:08)
[2022-06-26 23:12] LABS: Basophils # 0.1 10*3/uL (0.0-0.2); Basophils % 0.4 % (0.0-0.8); Eosinophils # 0.2 10*3/uL (0.0-0.87); Hematocrit 53.2 VOL% (42.0-52.0); Hemoglobin 16.6 GM/DL (14.0-18.0); Immature Granulocytes % 0.6 %; Lymphocytes # 1.1 10*3/uL (1.4-4.0); Lymphocytes % 6.8 % (21.2-54.2); Mean Corpuscular HGB Conc 31.2 GM/DL (32-36); Mean Corpuscular Volume 83.8 FL (87-102); Monocytes # 0.6 10*3/uL (0.11-0.8); Neutrophils % 87.2 % (38.7-73.9); Platelet Count 118 T/CUMM (130-400); Red Blood Count 6.35 MC/CUMM (3.8-5.5); Red Cell Distribution Width 17.5 % (9.3-17.3); White Blood Count 15.7 T/CUMM (4-12)
[2022-06-26 23:31] LABS: PT Patient Result 11.5 SECS (10.1-12.1); Partial Thromboplastin Time 49.3 SECS (23.7-32.9)
[2022-06-26 23:35] LABS: Blood Urea Nitrogen 27 MG/DL (7-18); Calcium 8.7 MG/DL (8.5-10.1); Carbon Dioxide 24 MMOL/L (21-32); Chloride 104 MMOL/L (98-107); Glucose 288 MG/DL (74-106); Potassium 4.3 MMOL/L (3.5-5.1); Sodium 136 MMOL/L (136-145)
[2022-06-26] MEDS: ATORVASTATIN 40 MG TABLET PO SCH (23:43)
[2022-06-26 23:54] LABS: Platelet Estimate Decreased
[2022-06-27] MEDS: MIDAZOLAM 100 MG in SODIUM CHLORIDE 0.9% 80 ML IV PRN ×3 (01:07→21:06)
[2022-06-27] MEDS: INSULIN REGULAR 100 UNIT/ML IV SCH ×5 (04:47→20:09)
[2022-06-27 05:10] LABS: Amorphous Crystals,Urine Occasional /HPF (Few); Mucus,Urine Occasional /LPF (Occasional); RBC,Urine 2 /HPF (0-4)
[2022-06-27 05:11] LABS: Bilirubin,Urine Negative (Negative); Blood, Urine Trace mg/dL (Negative); Glucose,Urine (UA) 500 mg/dL (Negative); Ketones,Urine Negative (Negative); Nitrite,Urine Negative (Negative); Protein,Urine Negative (Negative); Urine Appearance Clear (Clear); Urine Color Straw (Yellow); Urine Specific Gravity < 1.005 (1.001-1.035); Urine Urobilinogen 0.2 eU/dL (<2.0)
[2022-06-27 05:12] LABS: ABG Base Excess -2.1 MMOL/L (-2.5-2.5); ABG HCO3 22.7 MMOL/L (20-26); ABG Oxygen Saturation 98.3 % (95-100); ABG PCO2 44.3 MM HG (35-48); ABG PH 7.342 (7.35-7.45); ABG TCO2 20.3 MMOL/L (23-27)
[2022-06-27 05:17] LABS: Basophils % 0.3 % (0.0-0.8); Eosinophils # 0.2 10*3/uL (0.0-0.87); Eosinophils % 1.2 % (0.00-10.9); Hematocrit 50.3 VOL% (42.0-52.0); Hemoglobin 15.8 GM/DL (14.0-18.0); Immature Granulocytes % 0.5 %; Immature Granulocytes Absolute 0.07 #; Lymphocytes # 1.1 10*3/uL (1.4-4.0); Lymphocytes % 7.1 % (21.2-54.2); Mean Corpuscular HGB Conc 31.4 GM/DL (32-36); Mean Corpuscular Volume 83.1 FL (87-102); Monocytes # 0.5 10*3/uL (0.11-0.8); Monocytes % 3.5 % (1.7-12.7); Neutrophils % 87.4 % (38.7-73.9); Platelet Count 106 T/CUMM (130-400); Red Blood Count 6.05 MC/CUMM (3.8-5.5); Red Cell Distribution Width 17.6 % (9.3-17.3); White Blood Count 14.7 T/CUMM (4-12)
[2022-06-27] MEDS: fentaNYL INJ 1,250 MCG in SODIUM CHLORIDE 0.9% 225 ML IV PRN ×4 (05:22→21:30)
[2022-06-27 05:26] LABS: INR 1.1; PT Patient Result 12.1 SECS (10.1-12.1); Partial Thromboplastin Time 76.3 SECS (23.7-32.9)
[2022-06-27 05:40] LABS: Calcium 8.2 MG/DL (8.5-10.1); Potassium 3.7 MMOL/L (3.5-5.1); Risk Ratio 5.52; Thyroid Stimulating Hormone 1.62 uIU/ml (0.358-3.74); VLDL Cholesterol 54.2 MG/DL
[2022-06-27 05:45] LABS: Blood Urea Nitrogen 28 MG/DL (7-18); Carbon Dioxide 24 MMOL/L (21-32); Chloride 107 MMOL/L (98-107); Glucose 274 MG/DL (74-106); Osmolality,Calculated 288.8 MOS/KG (273-304); Potassium 3.8 MMOL/L (3.5-5.1); Sodium 137 MMOL/L (136-145)
[2022-06-27 06:13] LABS: Platelet Estimate Normal
[2022-06-27] MEDS: carvediloL 12.5 MG TABLET PO SCH ×2 (08:11→21:31)
[2022-06-27] MEDS: ASPIRIN CHEW 81 MG TABLET PO SCH (08:26)
[2022-06-27] MEDS: CLINDAMYCIN INJ 600 MG/50 ML PREMIX IV SCH ×2 (10:15→17:49)
[2022-06-27 11:13] LABS: Basophils # 0.1 10*3/uL (0.0-0.2); Basophils % 0.5 % (0.0-0.8); Eosinophils # 0.2 10*3/uL (0.0-0.87); Eosinophils % 1.8 % (0.00-10.9); Hemoglobin 15.2 GM/DL (14.0-18.0); Immature Granulocytes % 0.6 %; Immature Granulocytes Absolute 0.08 #; Lymphocytes # 0.8 10*3/uL (1.4-4.0); Lymphocytes % 5.9 % (21.2-54.2); Mean Corpuscular HGB Conc 31.7 GM/DL (32-36); Mean Corpuscular Volume 83.5 FL (87-102); Mean Platelet Volume 12.3 FL (9.6-12.0); Monocytes # 0.6 10*3/uL (0.11-0.8); Monocytes % 4.3 % (1.7-12.7); Neutrophils % 86.9 % (38.7-73.9); Platelet Count 96 T/CUMM (130-400); Red Blood Count 5.75 MC/CUMM (3.8-5.5); Red Cell Distribution Width 16.8 % (9.3-17.3); White Blood Count 13.3 T/CUMM (4-12)
[2022-06-27 11:29] LABS: Blood Urea Nitrogen 28 MG/DL (7-18); Carbon Dioxide 28 MMOL/L (21-32); Chloride 105 MMOL/L (98-107); Glucose 281 MG/DL (74-106); Osmolality,Calculated 292.5 MOS/KG (273-304); Potassium 3.8 MMOL/L (3.5-5.1); Sodium 139 MMOL/L (136-145)
[2022-06-27 11:38] LABS: INR 1.1; PT Patient Result 11.9 SECS (10.1-12.1); Partial Thromboplastin Time 99.1 SECS (23.7-32.9)
[2022-06-27] MEDS: HEPARIN DRIP 25,000 UNITS/500 ML PREMIX IV SCH ×2 (11:44→15:38)
[2022-06-27] MEDS: MEPERIDINE 25 MG/1 ML VIAL IV PRN ×3 (13:09→23:32)
[2022-06-27] MEDS: NOREPINEPHRINE 8 MG in SODIUM CHLORIDE 0.9% 242 ML IV PRN (17:29)
[2022-06-27 17:35] LABS: Basophils # 0.1 10*3/uL (0.0-0.2); Basophils % 0.4 % (0.0-0.8); Eosinophils # 0.3 10*3/uL (0.0-0.87); Eosinophils % 2.5 % (0.00-10.9); Hematocrit 48.4 VOL% (42.0-52.0); Hemoglobin 15.1 GM/DL (14.0-18.0); Immature Granulocytes % 0.6 %; Immature Granulocytes Absolute 0.07 #; Lymphocytes # 0.7 10*3/uL (1.4-4.0); Mean Corpuscular HGB Conc 31.2 GM/DL (32-36); Mean Corpuscular Volume 83.6 FL (87-102); Monocytes # 0.5 10*3/uL (0.11-0.8); Monocytes % 4.3 % (1.7-12.7); Neutrophils % 86.2 % (38.7-73.9); Platelet Count 88 T/CUMM (130-400); Red Blood Count 5.79 MC/CUMM (3.8-5.5); Red Cell Distribution Width 16.8 % (9.3-17.3); White Blood Count 11.5 T/CUMM (4-12)
[2022-06-27] MEDS: PANTOPRAZOLE 40 MG VIAL IV SCH (17:49)
[2022-06-27 17:52] LABS: Blood Urea Nitrogen 28 MG/DL (7-18); Calcium 8.3 MG/DL (8.5-10.1); Carbon Dioxide 28 MMOL/L (21-32); Chloride 104 MMOL/L (98-107); Glucose 210 MG/DL (74-106); Osmolality,Calculated 284.8 MOS/KG (273-304); Potassium 3.9 MMOL/L (3.5-5.1); Sodium 137 MMOL/L (136-145)
[2022-06-27 17:59] LABS: INR 1.1
[2022-06-27 18:03] LABS: Partial Thromboplastin Time 101.9 SECS (23.7-32.9)
[2022-06-27] MEDS: MINERAL OIL/PETROLATUM OPH OINT 3.5 GM TUBE BOTH EYES SCH (20:10)
[2022-06-27] MEDS: ATORVASTATIN 40 MG TABLET PO SCH (20:25)
[2022-06-27 23:58] LABS: Basophils # 0.1 10*3/uL (0.0-0.2); Basophils % 0.5 % (0.0-0.8); Eosinophils # 0.2 10*3/uL (0.0-0.87); Hematocrit 48.1 VOL% (42.0-52.0); Hemoglobin 15.1 GM/DL (14.0-18.0); Immature Granulocytes % 0.6 %; Immature Granulocytes Absolute 0.06 #; Lymphocytes # 0.5 10*3/uL (1.4-4.0); Lymphocytes % 4.4 % (21.2-54.2); Mean Corpuscular HGB Conc 31.4 GM/DL (32-36); Mean Corpuscular Volume 83.5 FL (87-102); Monocytes # 0.4 10*3/uL (0.11-0.8); Monocytes % 3.9 % (1.7-12.7); Neutrophils % 88.6 % (38.7-73.9); Platelet Count 86 T/CUMM (130-400); Red Blood Count 5.76 MC/CUMM (3.8-5.5); Red Cell Distribution Width 17.2 % (9.3-17.3); White Blood Count 10.4 T/CUMM (4-12)
[2022-06-28 00:12] LABS: INR 1.1; PT Patient Result 11.7 SECS (10.1-12.1); Partial Thromboplastin Time 36.5 SECS (23.7-32.9)
[2022-06-28 00:20] LABS: Blood Urea Nitrogen 29 MG/DL (7-18); Calcium 7.9 MG/DL (8.5-10.1); Carbon Dioxide 27 MMOL/L (21-32); Chloride 107 MMOL/L (98-107); Glucose 176 MG/DL (74-106); Osmolality,Calculated 288.4 MOS/KG (273-304); Potassium 4.1 MMOL/L (3.5-5.1); Sodium 140 MMOL/L (136-145)
[2022-06-28 00:31] LABS: Eosinophils 3 % (0-10); Lymphocytes 5 % (20-55); Platelet Estimate Decreased; Total Cells Counted 100
[2022-06-28] MEDS: INSULIN REGULAR 100 UNIT/ML IV SCH ×4 (00:31→12:00)
[2022-06-28] MEDS ORDERED: HEPARIN 5,000 UNIT/1 ML VIAL IV ONE (01:00)
[2022-06-28] MEDS: CLINDAMYCIN INJ 600 MG/50 ML PREMIX IV SCH ×3 (01:01→17:00)
[2022-06-28] MEDS: fentaNYL INJ 1,250 MCG in SODIUM CHLORIDE 0.9% 225 ML IV PRN ×2 (02:16→07:58)
[2022-06-28 04:41] LABS: Basophils # 0.1 10*3/uL (0.0-0.2); Basophils % 0.4 % (0.0-0.8); Eosinophils # 0.3 10*3/uL (0.0-0.87); Eosinophils % 2.1 % (0.00-10.9); Hematocrit 44.6 VOL% (42.0-52.0); Hemoglobin 14.1 GM/DL (14.0-18.0); Immature Granulocytes % 0.6 %; Immature Granulocytes Absolute 0.08 #; Lymphocytes # 0.5 10*3/uL (1.4-4.0); Lymphocytes % 4.3 % (21.2-54.2); Mean Corpuscular HGB Conc 31.6 GM/DL (32-36); Mean Corpuscular Volume 83.4 FL (87-102); Monocytes # 0.6 10*3/uL (0.11-0.8); Monocytes % 4.5 % (1.7-12.7); Neutrophils % 88.1 % (38.7-73.9); Platelet Count 94 T/CUMM (130-400); Red Blood Count 5.35 MC/CUMM (3.8-5.5); Red Cell Distribution Width 16.8 % (9.3-17.3); White Blood Count 12.6 T/CUMM (4-12)
[2022-06-28 04:43] LABS: ABG Base Excess -1.9 MMOL/L (-2.5-2.5); ABG HCO3 22.9 MMOL/L (20-26); ABG Oxygen Saturation 98.2 % (95-100); ABG PCO2 51.2 MM HG (35-48); ABG PH 7.304 (7.35-7.45); ABG TCO2 22.1 MMOL/L (23-27)
[2022-06-28 04:56] LABS: Calcium 8.1 MG/DL (8.5-10.1); Osmolality,Calculated 284.8 MOS/KG (273-304); Potassium 3.6 MMOL/L (3.5-5.1)
[2022-06-28 05:06] LABS: Band Neutrophils 1 % (0-10); Eosinophils 2 % (0-10); Lymphocytes 5 % (20-55); Total Cells Counted 100
[2022-06-28 05:07] LABS: Platelet Estimate Decreased
[2022-06-28 06:04] LABS: INR 1.1; PT Patient Result 12.2 SECS (10.1-12.1); Partial Thromboplastin Time 77.2 SECS (23.7-32.9)
[2022-06-28 06:09] LABS: CKMB % 3.66 %; Osmolality,Calculated 285.7 MOS/KG (273-304); Potassium 3.7 MMOL/L (3.5-5.1)
[2022-06-28 06:12] LABS: High Sensitive Troponin I* 980.9 ng/L (0-78)
[2022-06-28] MEDS: MIDAZOLAM 100 MG in SODIUM CHLORIDE 0.9% 80 ML IV PRN (06:31)
[2022-06-28 08:20] LABS: ABG Base Excess -1.8 MMOL/L (-2.5-2.5); ABG HCO3 22.9 MMOL/L (20-26); ABG Oxygen Saturation 97.6 % (95-100); ABG PCO2 43.8 MM HG (35-48); ABG PH 7.347 (7.35-7.45); ABG TCO2 20.9 MMOL/L (23-27)
[2022-06-28 08:24] LABS: Basophils % 0.4 % (0.0-0.8); Eosinophils # 0.3 10*3/uL (0.0-0.87); Eosinophils % 2.5 % (0.00-10.9); Hematocrit 43.1 VOL% (42.0-52.0); Hemoglobin 13.4 GM/DL (14.0-18.0); Immature Granulocytes % 0.6 %; Immature Granulocytes Absolute 0.07 #; Lymphocytes # 0.7 10*3/uL (1.4-4.0); Lymphocytes % 5.8 % (21.2-54.2); Mean Corpuscular HGB Conc 31.1 GM/DL (32-36); Mean Corpuscular Volume 83.5 FL (87-102); Monocytes # 0.5 10*3/uL (0.11-0.8); Monocytes % 4.2 % (1.7-12.7); Neutrophils % 86.5 % (38.7-73.9); Platelet Count 90 T/CUMM (130-400); Red Blood Count 5.16 MC/CUMM (3.8-5.5); Red Cell Distribution Width 16.5 % (9.3-17.3); White Blood Count 11.4 T/CUMM (4-12)
[2022-06-28 08:33] LABS: INR 1.1; PT Patient Result 12.4 SECS (10.1-12.1)
[2022-06-28 08:44] LABS: Anisocytosis 1+; Band Neutrophils 26 % (0-10); Eosinophils 6 % (0-10); Lymphocytes 8 % (20-55); Metamyelocytes 1 %; Platelet Estimate Decreased; Total Cells Counted 100
[2022-06-28 08:45] LABS: Burr Cells Few
[2022-06-28 08:48] LABS: CKMB % 4.34 %
[2022-06-28 08:50] LABS: High Sensitive Troponin I* 3138.5 ng/L (0-78)
[2022-06-28] MEDS: ASPIRIN CHEW 81 MG TABLET PO SCH (08:50)
[2022-06-28] MEDS: carvediloL 12.5 MG TABLET PO SCH ×2 (08:51→20:08)
[2022-06-28 08:52] LABS: Albumin 2.5 G/DL (3.4-5.0); Bilirubin,Total 0.7 MG/DL (0.20-1.00); Calcium 7.6 MG/DL (8.5-10.1); Osmolality,Calculated 294.1 MOS/KG (273-304); Potassium 3.6 MMOL/L (3.5-5.1)
[2022-06-28] MEDS: PANTOPRAZOLE 40 MG VIAL IV SCH (08:55)
[2022-06-28 11:19] LABS: Basophils % 0.3 % (0.0-0.8); Eosinophils # 0.2 10*3/uL (0.0-0.87); Eosinophils % 2.1 % (0.00-10.9); Hematocrit 41.8 VOL% (42.0-52.0); Hemoglobin 13.1 GM/DL (14.0-18.0); Immature Granulocytes % 0.4 %; Immature Granulocytes Absolute 0.05 #; Lymphocytes # 0.6 10*3/uL (1.4-4.0); Lymphocytes % 5.3 % (21.2-54.2); Mean Corpuscular HGB Conc 31.3 GM/DL (32-36); Mean Corpuscular Volume 83.8 FL (87-102); Monocytes # 0.6 10*3/uL (0.11-0.8); Monocytes % 5.3 % (1.7-12.7); Neutrophils % 86.6 % (38.7-73.9); Platelet Count 94 T/CUMM (130-400); Red Blood Count 4.99 MC/CUMM (3.8-5.5); Red Cell Distribution Width 16.6 % (9.3-17.3); White Blood Count 11.2 T/CUMM (4-12)
[2022-06-28 11:28] LABS: INR 1.1; PT Patient Result 12.3 SECS (10.1-12.1); Partial Thromboplastin Time 54.4 SECS (23.7-32.9)
[2022-06-28 11:36] LABS: CKMB % 4.57 %; Calcium 7.5 MG/DL (8.5-10.1); Osmolality,Calculated 291.4 MOS/KG (273-304); Potassium 3.7 MMOL/L (3.5-5.1)
[2022-06-28 11:38] LABS: High Sensitive Troponin I* 4359.3 ng/L (0-78)
[2022-06-28 12:06] LABS: Platelet Estimate Decreased
[2022-06-28 12:07] LABS: Anisocytosis Slight; Macrocytosis Slight
[2022-06-28] MEDS: HEPARIN DRIP 25,000 UNITS/500 ML PREMIX IV SCH ×2 (12:30→16:27)
[2022-06-28] MEDS: NOREPINEPHRINE 8 MG in SODIUM CHLORIDE 0.9% 242 ML IV PRN (16:22)
[2022-06-28] MEDS: INSULIN REGULAR 100 UNIT/ML SUBCUT SCH ×2 (16:33→20:07)
[2022-06-28 17:16] LABS: Calcium 7.9 MG/DL (8.5-10.1); Osmolality,Calculated 289.5 MOS/KG (273-304); Potassium 3.8 MMOL/L (3.5-5.1)
[2022-06-28 17:18] LABS: High Sensitive Troponin I* 5569.4 ng/L (0-78)
[2022-06-28] MEDS: MINERAL OIL/PETROLATUM OPH OINT 3.5 GM TUBE BOTH EYES SCH (20:08)
[2022-06-28] MEDS: ATORVASTATIN 40 MG TABLET PO SCH (20:08)
[2022-06-28 23:28] LABS: Calcium 7.6 MG/DL (8.5-10.1); Osmolality,Calculated 291.4 MOS/KG (273-304); Potassium 3.7 MMOL/L (3.5-5.1)
[2022-06-29] MEDS: INSULIN REGULAR 100 UNIT/ML SUBCUT SCH ×7 (00:40→23:29)
[2022-06-29] MEDS: CLINDAMYCIN INJ 600 MG/50 ML PREMIX IV SCH ×3 (01:55→17:00)
[2022-06-29] MEDS: ACETAMINOPHEN 325 MG TABLET PO PRN ×2 (02:52→11:43)
[2022-06-29 04:16] LABS: ABG Oxygen Saturation 98.6 % (95-100); ABG PCO2 38.2 MM HG (35-48); ABG PH 7.368 (7.35-7.45); ABG TCO2 19.6 MMOL/L (23-27)
[2022-06-29 04:30] LABS: Basophils % 0.3 % (0.0-0.8); Eosinophils # 0.2 10*3/uL (0.0-0.87); Eosinophils % 2.2 % (0.00-10.9); Hematocrit 36.9 VOL% (42.0-52.0); Hemoglobin 11.3 GM/DL (14.0-18.0); Immature Granulocytes % 1.2 %; Immature Granulocytes Absolute 0.08 #; Lymphocytes # 0.6 10*3/uL (1.4-4.0); Lymphocytes % 8.5 % (21.2-54.2); Mean Corpuscular HGB Conc 30.6 GM/DL (32-36); Mean Corpuscular Volume 84.2 FL (87-102); Monocytes # 0.4 10*3/uL (0.11-0.8); Monocytes % 5.1 % (1.7-12.7); Neutrophils % 82.7 % (38.7-73.9); Platelet Count 68 T/CUMM (130-400); Red Blood Count 4.38 MC/CUMM (3.8-5.5); Red Cell Distribution Width 16.7 % (9.3-17.3); White Blood Count 6.9 T/CUMM (4-12)
[2022-06-29 04:34] LABS: Calcium 7.2 MG/DL (8.5-10.1); Osmolality,Calculated 296.1 MOS/KG (273-304); Potassium 3.4 MMOL/L (3.5-5.1)
[2022-06-29] MEDS ORDERED: MAGNESIUM SULF RIDER 2 GM/50 ML PREMIX IV PRN (04:50)
[2022-06-29] MEDS ORDERED: MAGNESIUM SULF RIDER 4 GM/100 ML PREMIX IV PRN (04:50)
[2022-06-29] MEDS: POTASSIUM CHLORIDE RIDER 20 MEQ/100 ML PREMIX IV PRN ×4 (05:00→20:55)
[2022-06-29 05:31] LABS: Eosinophils 5 % (0-10); Hypochromia Slight; Lymphocytes 7 % (20-55); Microcytosis Slight; Platelet Estimate Decreased; Total Cells Counted 100
[2022-06-29] MEDS: POTASSIUM CHLORIDE RIDER 10 MEQ/100 ML PREMIX IV PRN ×2 (06:22→23:28)
[2022-06-29] MEDS ORDERED: AMIODARONE INJ 150 MG in DEXTROSE 5% 100 ML IV ONE ×2 (07:04→07:50)
[2022-06-29] MEDS ORDERED: AMIODARONE INJ 450 MG in DEXTROSE 5% 241 ML IV SCH (07:30)
[2022-06-29 08:05] LABS: Calcium 7.4 MG/DL (8.5-10.1); Osmolality,Calculated 295.1 MOS/KG (273-304); Potassium 3.8 MMOL/L (3.5-5.1)
[2022-06-29] MEDS: PANTOPRAZOLE 40 MG VIAL IV SCH (08:31)
[2022-06-29] MEDS: carvediloL 12.5 MG TABLET PO SCH ×2 (08:32→20:55)
[2022-06-29] MEDS: ASPIRIN CHEW 81 MG TABLET PO SCH (08:32)
[2022-06-29 12:01] LABS: Basophils % 0.2 % (0.0-0.8); Eosinophils # 0.1 10*3/uL (0.0-0.87); Eosinophils % 1.9 % (0.00-10.9); Hematocrit 34.9 VOL% (42.0-52.0); Hemoglobin 10.8 GM/DL (14.0-18.0); Immature Granulocytes % 0.9 %; Immature Granulocytes Absolute 0.05 #; Lymphocytes # 0.7 10*3/uL (1.4-4.0); Lymphocytes % 12.7 % (21.2-54.2); Mean Corpuscular HGB Conc 30.9 GM/DL (32-36); Mean Corpuscular Volume 84.7 FL (87-102); Monocytes # 0.3 10*3/uL (0.11-0.8); Monocytes % 5.1 % (1.7-12.7); Neutrophils % 79.2 % (38.7-73.9); Platelet Count 62 T/CUMM (130-400); Red Blood Count 4.12 MC/CUMM (3.8-5.5); Red Cell Distribution Width 16.8 % (9.3-17.3); White Blood Count 5.7 T/CUMM (4-12)
[2022-06-29 12:16] LABS: Calcium 7.3 MG/DL (8.5-10.1); Osmolality,Calculated 293.3 MOS/KG (273-304); Potassium 3.7 MMOL/L (3.5-5.1)
[2022-06-29] MEDS: AMIODARONE INJ 450 MG in DEXTROSE 5% 241 ML IV SCH (14:00)
[2022-06-29 17:14] LABS: Calcium 7.8 MG/DL (8.5-10.1); Osmolality,Calculated 290.3 MOS/KG (273-304); Potassium 3.5 MMOL/L (3.5-5.1)
[2022-06-29] MEDS ORDERED: CLOPIDOGREL 300 MG TABLET PO ONE (18:00)
[2022-06-29] MEDS: ENOXAPARIN 40 MG/0.4 ML SYRINGE SUBCUT SCH (18:54)
[2022-06-29] MEDS: MINERAL OIL/PETROLATUM OPH OINT 3.5 GM TUBE BOTH EYES SCH (20:55)
[2022-06-29] MEDS: ATORVASTATIN 40 MG TABLET PO SCH (20:55)
[2022-06-29 23:45] LABS: Calcium 8.1 MG/DL (8.5-10.1); Osmolality,Calculated 286.4 MOS/KG (273-304)
[2022-06-30] MEDS: ACETAMINOPHEN 325 MG TABLET PO PRN (00:47)
[2022-06-30] MEDS: CLINDAMYCIN INJ 600 MG/50 ML PREMIX IV SCH ×2 (02:37→09:18)
[2022-06-30 03:58] LABS: ABG Base Excess -4.9 MMOL/L (-2.5-2.5); ABG HCO3 20.4 MMOL/L (20-26); ABG Oxygen Saturation 98.7 % (95-100); ABG PCO2 34.7 MM HG (35-48); ABG PH 7.364 (7.35-7.45)
[2022-06-30 04:04] LABS: Basophils % 0.3 % (0.0-0.8); Eosinophils # 0.2 10*3/uL (0.0-0.87); Hematocrit 35.5 VOL% (42.0-52.0); Hemoglobin 10.9 GM/DL (14.0-18.0); Immature Granulocytes % 0.8 %; Immature Granulocytes Absolute 0.05 #; Lymphocytes # 0.6 10*3/uL (1.4-4.0); Mean Corpuscular HGB Conc 30.7 GM/DL (32-36); Mean Corpuscular Volume 85.3 FL (87-102); Monocytes # 0.4 10*3/uL (0.11-0.8); Neutrophils % 79.9 % (38.7-73.9); Platelet Count 63 T/CUMM (130-400); Red Blood Count 4.16 MC/CUMM (3.8-5.5); Red Cell Distribution Width 16.6 % (9.3-17.3)
[2022-06-30] MEDS: INSULIN REGULAR 100 UNIT/ML SUBCUT SCH ×5 (04:05→20:42)
[2022-06-30 04:21] LABS: Platelet Estimate Decreased
[2022-06-30] MEDS: AMIODARONE INJ 450 MG in DEXTROSE 5% 241 ML IV SCH ×2 (04:58→19:32)
[2022-06-30] MEDS: PANTOPRAZOLE 40 MG VIAL IV SCH (08:22)
[2022-06-30] MEDS: CLOPIDOGREL 75 MG TABLET PO SCH (08:23)
[2022-06-30] MEDS: AMIODARONE 200 MG TABLET PO SCH ×2 (08:23→20:42)
[2022-06-30] MEDS: ASPIRIN CHEW 81 MG TABLET PO SCH (08:23)
[2022-06-30] MEDS: carvediloL 12.5 MG TABLET PO SCH ×2 (08:23→20:42)
[2022-06-30 09:01] LABS: Calcium 7.9 MG/DL (8.5-10.1); Osmolality,Calculated 286.4 MOS/KG (273-304); Potassium 3.8 MMOL/L (3.5-5.1)
[2022-06-30] MEDS ORDERED: DEXTROSE 50% 25 GM/50 ML SYRINGE IV PRN (12:01)
[2022-06-30] MEDS: LEVOFLOXACIN INJ 750 MG/150 ML PREMIX IV SCH (12:37)
[2022-06-30] MEDS: ENOXAPARIN 40 MG/0.4 ML SYRINGE SUBCUT SCH (18:23)
[2022-06-30 20:31] LABS: HIT Interpretation Negative (Negative)
[2022-06-30] MEDS: MINERAL OIL/PETROLATUM OPH OINT 3.5 GM TUBE BOTH EYES SCH (20:42)
[2022-06-30] MEDS: ATORVASTATIN 40 MG TABLET PO SCH (20:42)
[2022-07-01] MEDS: ACETAMINOPHEN 325 MG TABLET PO PRN ×4 (00:05→20:18)
[2022-07-01] MEDS: INSULIN REGULAR 100 UNIT/ML SUBCUT SCH ×6 (00:05→20:18)
[2022-07-01 03:41] LABS: ABG Base Excess -3.3 MMOL/L (-2.5-2.5); ABG HCO3 21.7 MMOL/L (20-26); ABG Oxygen Saturation 97.6 % (95-100); ABG PCO2 39.9 MM HG (35-48); ABG TCO2 19.9 MMOL/L (23-27)
[2022-07-01 03:47] LABS: Basophils % 0.3 % (0.0-0.8); Eosinophils # 0.1 10*3/uL (0.0-0.87); Eosinophils % 2.1 % (0.00-10.9); Hematocrit 36.4 VOL% (42.0-52.0); Hemoglobin 11.1 GM/DL (14.0-18.0); Immature Granulocytes Absolute 0.06 #; Lymphocytes # 0.5 10*3/uL (1.4-4.0); Lymphocytes % 8.4 % (21.2-54.2); Mean Corpuscular HGB Conc 30.5 GM/DL (32-36); Mean Platelet Volume 11.4 FL (9.6-12.0); Monocytes # 0.5 10*3/uL (0.11-0.8); Neutrophils % 80.2 % (38.7-73.9); Platelet Count 79 T/CUMM (130-400); Red Blood Count 4.28 MC/CUMM (3.8-5.5); Red Cell Distribution Width 16.1 % (9.3-17.3); White Blood Count 5.7 T/CUMM (4-12)
[2022-07-01 03:56] LABS: Phosphorous 3.4 MG/DL (2.5-4.9)
[2022-07-01 04:06] LABS: Hypochromia Slight; Microcytosis Slight
[2022-07-01 07:23] LABS: Albumin 2.4 G/DL (3.4-5.0); Bilirubin,Total 0.5 MG/DL (0.20-1.00); Calcium 8.6 MG/DL (8.5-10.1); Osmolality,Calculated 294.1 MOS/KG (273-304); Total Protein 6.7 G/DL (6.4-8.2)
[2022-07-01] MEDS: PANTOPRAZOLE 40 MG VIAL IV SCH (08:12)
[2022-07-01] MEDS: CLOPIDOGREL 75 MG TABLET PO SCH (08:15)
[2022-07-01] MEDS: VALSARTAN 80 MG TABLET PO SCH (08:15)
[2022-07-01] MEDS: ASPIRIN CHEW 81 MG TABLET PO SCH (08:15)
[2022-07-01] MEDS: carvediloL 12.5 MG TABLET PO SCH ×2 (08:15→20:19)
[2022-07-01] MEDS: AMIODARONE 200 MG TABLET PO SCH ×2 (08:15→20:19)
[2022-07-01] MEDS: LEVOFLOXACIN INJ 750 MG/150 ML PREMIX IV SCH (09:36)
[2022-07-01] MEDS: DEXMEDETOMIDINE 200 MCG in SODIUM CHLORIDE 0.9% 48 ML IV PRN ×2 (10:03→12:10)
[2022-07-01] MEDS ORDERED: MIDAZOLAM 2 MG/2 ML VIAL IV ONE (12:15)
[2022-07-01] MEDS ORDERED: MORPHINE 2 MG/1 ML SYRINGE IV ONE (12:15)
[2022-07-01] MEDS: DEXMEDETOMIDINE 400 MCG in SODIUM CHLORIDE 0.9% 96 ML IV PRN ×2 (15:15→20:45)
[2022-07-01] MEDS: ENOXAPARIN 40 MG/0.4 ML SYRINGE SUBCUT SCH (16:01)
[2022-07-01] MEDS: ATORVASTATIN 40 MG TABLET PO SCH (20:19)
[2022-07-01] MEDS: MINERAL OIL/PETROLATUM OPH OINT 3.5 GM TUBE BOTH EYES SCH (22:24)
[2022-07-02] MEDS: hydrALAZINE 20 MG/1 ML VIAL IV PRN (00:04)
[2022-07-02] MEDS: INSULIN REGULAR 100 UNIT/ML SUBCUT SCH ×6 (00:49→20:35)
[2022-07-02 04:25] LABS: ABG Base Excess 0.3 MMOL/L (-2.5-2.5); ABG HCO3 24.7 MMOL/L (20-26); ABG Oxygen Saturation 98.5 % (95-100); ABG PCO2 37.1 MM HG (35-48); ABG PH 7.426 (7.35-7.45); ABG TCO2 22.1 MMOL/L (23-27)
[2022-07-02 04:31] LABS: Basophils % 0.6 % (0.0-0.8); Eosinophils # 0.2 10*3/uL (0.0-0.87); Eosinophils % 2.8 % (0.00-10.9); Hematocrit 35.2 VOL% (42.0-52.0); Hemoglobin 10.7 GM/DL (14.0-18.0); Immature Granulocytes % 1.7 %; Immature Granulocytes Absolute 0.09 #; Lymphocytes # 0.9 10*3/uL (1.4-4.0); Lymphocytes % 15.9 % (21.2-54.2); Mean Corpuscular HGB Conc 30.4 GM/DL (32-36); Mean Platelet Volume 11.9 FL (9.6-12.0); Monocytes # 0.6 10*3/uL (0.11-0.8); Monocytes % 11.1 % (1.7-12.7); Neutrophils % 67.9 % (38.7-73.9); Platelet Count 88 T/CUMM (130-400); Red Blood Count 4.24 MC/CUMM (3.8-5.5); Red Cell Distribution Width 15.9 % (9.3-17.3); White Blood Count 5.4 T/CUMM (4-12)
[2022-07-02 04:45] LABS: Albumin 2.2 G/DL (3.4-5.0); Bilirubin,Total 0.4 MG/DL (0.20-1.00); Calcium 8.8 MG/DL (8.5-10.1); Osmolality,Calculated 299.1 MOS/KG (273-304); Phosphorous 3.4 MG/DL (2.5-4.9); Potassium 3.8 MMOL/L (3.5-5.1); Total Protein 6.5 G/DL (6.4-8.2)
[2022-07-02 05:06] LABS: Hypochromia Slight; Microcytosis Slight; Platelet Estimate Decreased
[2022-07-02] MEDS: PANTOPRAZOLE 40 MG VIAL IV SCH (08:02)
[2022-07-02] MEDS: VALSARTAN 80 MG TABLET PO SCH (08:05)
[2022-07-02] MEDS: CLOPIDOGREL 75 MG TABLET PO SCH (08:05)
[2022-07-02] MEDS: ASPIRIN CHEW 81 MG TABLET PO SCH (08:05)
[2022-07-02] MEDS: AMIODARONE 200 MG TABLET PO SCH ×2 (08:05→20:35)
[2022-07-02] MEDS: carvediloL 12.5 MG TABLET PO SCH ×2 (08:05→20:35)
[2022-07-02] MEDS ORDERED: FUROSEMIDE 40 MG/4 ML VIAL IV ONE (08:20)
[2022-07-02] MEDS: POTASSIUM CHLORIDE RIDER 20 MEQ/100 ML PREMIX IV PRN (08:54)
[2022-07-02] MEDS: LEVOFLOXACIN INJ 750 MG/150 ML PREMIX IV SCH (09:32)
[2022-07-02] MEDS ORDERED: MORPHINE 2 MG/1 ML SYRINGE IV PRN (10:31)
[2022-07-02] MEDS: DEXMEDETOMIDINE 400 MCG in SODIUM CHLORIDE 0.9% 96 ML IV PRN (10:56)
[2022-07-02] MEDS: ALPRAZolam 0.5 MG TABLET PO PRN (11:00)
[2022-07-02] MEDS: ACETAMINOPHEN 325 MG TABLET PO PRN (11:45)
[2022-07-02] MEDS ORDERED: RACEPINEPHRINE 0.5 ML NEB RESP TX ONE ×2 (13:51→13:54)
[2022-07-02] MEDS ORDERED: methylPREDNISolone SOD SUC 40 MG/1 ML VIAL ONE (13:53)
[2022-07-02] MEDS: methylPREDNISolone SOD SUC 40 MG/1 ML VIAL IV SCH (13:56)
[2022-07-02] MEDS: ENOXAPARIN 40 MG/0.4 ML SYRINGE SUBCUT SCH (16:02)
[2022-07-02] MEDS: ATORVASTATIN 40 MG TABLET PO SCH (20:35)
[2022-07-02] MEDS: OLANZapine 5 MG TABLET PO SCH (20:35)
[2022-07-02] MEDS: MINERAL OIL/PETROLATUM OPH OINT 3.5 GM TUBE BOTH EYES SCH (20:35)
[2022-07-03] MEDS: INSULIN REGULAR 100 UNIT/ML SUBCUT SCH ×7 (01:21→23:56)
[2022-07-03] MEDS: methylPREDNISolone SOD SUC 40 MG/1 ML VIAL IV SCH (02:27)
[2022-07-03 04:54] LABS: ABG Base Excess 1.2 MMOL/L (-2.5-2.5); ABG HCO3 25.4 MMOL/L (20-26); ABG Oxygen Saturation 95.3 % (95-100); ABG PCO2 41.5 MM HG (35-48); ABG PH 7.406 (7.35-7.45); ABG PO2 82.6 MM HG (80-95)
[2022-07-03 04:56] LABS: Basophils % 0.5 % (0.0-0.8); Eosinophils % 0.3 % (0.00-10.9); Hematocrit 38.8 VOL% (42.0-52.0); Hemoglobin 11.9 GM/DL (14.0-18.0); Immature Granulocytes % 4.1 %; Immature Granulocytes Absolute 0.26 #; Lymphocytes # 0.5 10*3/uL (1.4-4.0); Lymphocytes % 8.1 % (21.2-54.2); Mean Corpuscular HGB Conc 30.7 GM/DL (32-36); Mean Corpuscular Volume 83.1 FL (87-102); Mean Platelet Volume 11.2 FL (9.6-12.0); Monocytes # 0.3 10*3/uL (0.11-0.8); Monocytes % 5.3 % (1.7-12.7); Neutrophils % 81.7 % (38.7-73.9); Platelet Count 101 T/CUMM (130-400); Red Blood Count 4.67 MC/CUMM (3.8-5.5); Red Cell Distribution Width 15.9 % (9.3-17.3); White Blood Count 6.3 T/CUMM (4-12)
[2022-07-03 05:12] LABS: Calcium 9.3 MG/DL (8.5-10.1); Osmolality,Calculated 302.8 MOS/KG (273-304); Potassium 4.2 MMOL/L (3.5-5.1)
[2022-07-03] MEDS: hydrALAZINE 20 MG/1 ML VIAL IV PRN (06:34)
[2022-07-03] MEDS: VALSARTAN 80 MG TABLET PO SCH (08:11)
[2022-07-03] MEDS: AMIODARONE 200 MG TABLET PO SCH ×2 (08:11→20:17)
[2022-07-03] MEDS: carvediloL 12.5 MG TABLET PO SCH ×2 (08:11→20:16)
[2022-07-03] MEDS: CLOPIDOGREL 75 MG TABLET PO SCH (08:11)
[2022-07-03] MEDS: ASPIRIN CHEW 81 MG TABLET PO SCH (08:12)
[2022-07-03] MEDS: PANTOPRAZOLE 40 MG VIAL IV SCH (08:14)
[2022-07-03] MEDS: LEVOFLOXACIN INJ 750 MG/150 ML PREMIX IV SCH (10:44)
[2022-07-03] MEDS ORDERED: DOCUSATE SODIUM 100 MG CAPSULE PO PRN (13:45)
[2022-07-03] MEDS ORDERED: POLYETHYLENE GLYCOL POWDER 17 GM PACK PO PRN (13:50)
[2022-07-03] MEDS: ENOXAPARIN 40 MG/0.4 ML SYRINGE SUBCUT SCH (17:26)
[2022-07-03] MEDS: INSULIN GLARGINE 100 UNIT/ML SUBCUT SCH (20:15)
[2022-07-03] MEDS: ASCORBIC ACID 500 MG TABLET PO SCH (20:16)
[2022-07-03] MEDS: GABAPENTIN 600 MG TABLET PO SCH (20:16)
[2022-07-03] MEDS: OLANZapine 5 MG TABLET PO SCH (20:16)
[2022-07-03] MEDS: ATORVASTATIN 40 MG TABLET PO SCH (20:25)
[2022-07-03] MEDS: MINERAL OIL/PETROLATUM OPH OINT 3.5 GM TUBE BOTH EYES SCH (20:25)
[2022-07-03] MEDS: ALPRAZolam 0.5 MG TABLET PO PRN (22:42)
[2022-07-04 03:55] LABS: Arterial Base Excess iSTAT 4 MMOL/L (-2.5-2.5); Arterial Bicarbonate iSTAT 28.6 MMOL/L (20-26); Arterial O2 Saturation iSTAT 92 % (95-100); Arterial PCO2 iSTAT 41 MM HG (35-48); Arterial PO2 iSTAT 62 MM HG (80-95); Arterial Total CO2 iSTAT 30 MMO/L (23-27); Arterial pH iSTAT 7.454 (7.35-7.45)
[2022-07-04] MEDS: INSULIN REGULAR 100 UNIT/ML SUBCUT SCH ×6 (04:10→23:33)
[2022-07-04 04:21] LABS: Basophils % 0.5 % (0.0-0.8); Eosinophils # 0.3 10*3/uL (0.0-0.87); Eosinophils % 3.3 % (0.00-10.9); Hematocrit 40.3 VOL% (42.0-52.0); Hemoglobin 12.5 GM/DL (14.0-18.0); Immature Granulocytes % 4.1 %; Immature Granulocytes Absolute 0.31 #; Lymphocytes # 1.3 10*3/uL (1.4-4.0); Lymphocytes % 16.9 % (21.2-54.2); Mean Corpuscular Volume 83.1 FL (87-102); Mean Platelet Volume 11.7 FL (9.6-12.0); Monocytes # 0.7 10*3/uL (0.11-0.8); Monocytes % 8.7 % (1.7-12.7); Neutrophils % 66.5 % (38.7-73.9); Platelet Count 121 T/CUMM (130-400); Red Blood Count 4.85 MC/CUMM (3.8-5.5); Red Cell Distribution Width 15.8 % (9.3-17.3); White Blood Count 7.5 T/CUMM (4-12)
[2022-07-04 04:47] LABS: Calcium 8.9 MG/DL (8.5-10.1); Osmolality,Calculated 292.3 MOS/KG (273-304); Potassium 3.3 MMOL/L (3.5-5.1)
[2022-07-04] MEDS: POTASSIUM CHLORIDE RIDER 20 MEQ/100 ML PREMIX IV PRN ×2 (05:11→07:26)
[2022-07-04] MEDS: ASPIRIN CHEW 81 MG TABLET PO SCH (08:25)
[2022-07-04] MEDS: VALSARTAN 80 MG TABLET PO SCH (08:25)
[2022-07-04] MEDS: GABAPENTIN 600 MG TABLET PO SCH ×2 (08:25→20:21)
[2022-07-04] MEDS: CLOPIDOGREL 75 MG TABLET PO SCH (08:25)
[2022-07-04] MEDS: PANTOPRAZOLE 40 MG VIAL IV SCH (08:26)
[2022-07-04] MEDS: SERTRALINE 100 MG TABLET PO SCH (08:26)
[2022-07-04] MEDS: ASCORBIC ACID 500 MG TABLET PO SCH ×2 (08:26→20:20)
[2022-07-04] MEDS: FOLIC ACID 1 MG TABLET PO SCH (08:26)
[2022-07-04] MEDS: carvediloL 12.5 MG TABLET PO SCH ×2 (08:26→20:21)
[2022-07-04] MEDS: AMIODARONE 200 MG TABLET PO SCH ×2 (08:26→20:21)
[2022-07-04] MEDS: predniSONE 5 MG TABLET PO SCH (08:26)
[2022-07-04] MEDS: LEVOFLOXACIN INJ 750 MG/150 ML PREMIX IV SCH (11:31)
[2022-07-04] MEDS: ENOXAPARIN 40 MG/0.4 ML SYRINGE SUBCUT SCH (16:52)
[2022-07-04] MEDS: ATORVASTATIN 40 MG TABLET PO SCH (20:20)
[2022-07-04] MEDS: OLANZapine 5 MG TABLET PO SCH (20:21)
[2022-07-04] MEDS: MINERAL OIL/PETROLATUM OPH OINT 3.5 GM TUBE BOTH EYES SCH (20:22)
[2022-07-04] MEDS: INSULIN GLARGINE 100 UNIT/ML SUBCUT SCH (20:22)
[2022-07-05] MEDS: INSULIN REGULAR 100 UNIT/ML SUBCUT SCH ×6 (03:56→23:54)
[2022-07-05 03:57] LABS: Basophils % 0.4 % (0.0-0.8); Eosinophils # 0.3 10*3/uL (0.0-0.87); Eosinophils % 3.4 % (0.00-10.9); Hematocrit 41.2 VOL% (42.0-52.0); Hemoglobin 12.7 GM/DL (14.0-18.0); Immature Granulocytes % 2.5 %; Lymphocytes # 1.4 10*3/uL (1.4-4.0); Lymphocytes % 17.1 % (21.2-54.2); Mean Corpuscular HGB Conc 30.8 GM/DL (32-36); Mean Corpuscular Volume 82.9 FL (87-102); Mean Platelet Volume 11.6 FL (9.6-12.0); Monocytes # 0.7 10*3/uL (0.11-0.8); Monocytes % 8.4 % (1.7-12.7); Neutrophils % 68.2 % (38.7-73.9); Platelet Count 142 T/CUMM (130-400); Red Blood Count 4.97 MC/CUMM (3.8-5.5); Red Cell Distribution Width 15.6 % (9.3-17.3)
[2022-07-05 04:21] LABS: Platelet Estimate Adequate
[2022-07-05 04:35] LABS: Osmolality,Calculated 290.4 MOS/KG (273-304); Potassium 3.5 MMOL/L (3.5-5.1)
[2022-07-05 05:08] LABS: Arterial Base Excess iSTAT 2 MMOL/L (-2.5-2.5); Arterial Bicarbonate iSTAT 25.5 MMOL/L (20-26); Arterial O2 Saturation iSTAT 91 % (95-100); Arterial PCO2 iSTAT 37 MM HG (35-48); Arterial PO2 iSTAT 58 MM HG (80-95); Arterial Total CO2 iSTAT 27 MMO/L (23-27); Arterial pH iSTAT 7.444 (7.35-7.45)
[2022-07-05] MEDS: POTASSIUM CHLORIDE RIDER 20 MEQ/100 ML PREMIX IV PRN (06:18)
[2022-07-05] MEDS: POTASSIUM CHLORIDE RIDER 10 MEQ/100 ML PREMIX IV PRN (07:23)
[2022-07-05] MEDS: GABAPENTIN 600 MG TABLET PO SCH ×2 (08:40→20:02)
[2022-07-05] MEDS: CLOPIDOGREL 75 MG TABLET PO SCH (08:40)
[2022-07-05] MEDS: ASPIRIN CHEW 81 MG TABLET PO SCH (08:40)
[2022-07-05] MEDS: VALSARTAN 80 MG TABLET PO SCH (08:40)
[2022-07-05] MEDS: FOLIC ACID 1 MG TABLET PO SCH (08:41)
[2022-07-05] MEDS: SERTRALINE 100 MG TABLET PO SCH (08:41)
[2022-07-05] MEDS: ASCORBIC ACID 500 MG TABLET PO SCH ×2 (08:41→20:02)
[2022-07-05] MEDS: predniSONE 5 MG TABLET PO SCH (08:41)
[2022-07-05] MEDS: PANTOPRAZOLE 40 MG VIAL IV SCH (08:41)
[2022-07-05] MEDS: AMIODARONE 200 MG TABLET PO SCH ×2 (08:41→20:02)
[2022-07-05] MEDS: carvediloL 12.5 MG TABLET PO SCH ×2 (08:41→20:02)
[2022-07-05] MEDS: LEVOFLOXACIN INJ 750 MG/150 ML PREMIX IV SCH (09:45)
[2022-07-05] MEDS: ENOXAPARIN 40 MG/0.4 ML SYRINGE SUBCUT SCH (16:06)
[2022-07-05] MEDS: INSULIN GLARGINE 100 UNIT/ML SUBCUT SCH (20:02)
[2022-07-05] MEDS: ATORVASTATIN 40 MG TABLET PO SCH (20:02)
[2022-07-05] MEDS: OLANZapine 5 MG TABLET PO SCH (20:03)
[2022-07-05] MEDS: MINERAL OIL/PETROLATUM OPH OINT 3.5 GM TUBE BOTH EYES SCH (20:03)
[2022-07-06] MEDS: INSULIN REGULAR 100 UNIT/ML SUBCUT SCH ×5 (04:02→20:48)
[2022-07-06 04:20] LABS: Basophils % 0.3 % (0.0-0.8); Eosinophils # 0.2 10*3/uL (0.0-0.87); Eosinophils % 2.6 % (0.00-10.9); Hematocrit 38.5 VOL% (42.0-52.0); Immature Granulocytes % 3.1 %; Immature Granulocytes Absolute 0.27 #; Lymphocytes # 1.3 10*3/uL (1.4-4.0); Lymphocytes % 14.4 % (21.2-54.2); Mean Corpuscular HGB Conc 31.2 GM/DL (32-36); Mean Corpuscular Volume 82.8 FL (87-102); Mean Platelet Volume 11.1 FL (9.6-12.0); Monocytes # 0.6 10*3/uL (0.11-0.8); Neutrophils % 72.6 % (38.7-73.9); Platelet Count 122 T/CUMM (130-400); Red Blood Count 4.65 MC/CUMM (3.8-5.5); Red Cell Distribution Width 15.7 % (9.3-17.3); White Blood Count 8.9 T/CUMM (4-12)
[2022-07-06 04:38] LABS: Phosphorous 3.6 MG/DL (2.5-4.9)
[2022-07-06 05:18] LABS: Calcium 8.1 MG/DL (8.5-10.1); Osmolality,Calculated 295.3 MOS/KG (273-304); Potassium 3.8 MMOL/L (3.5-5.1)
[2022-07-06] MEDS: PANTOPRAZOLE 40 MG VIAL IV SCH (09:11)
[2022-07-06] MEDS: carvediloL 12.5 MG TABLET PO SCH ×2 (09:31→20:49)
[2022-07-06] MEDS: FOLIC ACID 1 MG TABLET PO SCH (09:31)
[2022-07-06] MEDS: VALSARTAN 80 MG TABLET PO SCH (09:31)
[2022-07-06] MEDS: CLOPIDOGREL 75 MG TABLET PO SCH (09:31)
[2022-07-06] MEDS: AMIODARONE 200 MG TABLET PO SCH ×2 (09:31→20:49)
[2022-07-06] MEDS: GABAPENTIN 600 MG TABLET PO SCH ×2 (09:31→20:49)
[2022-07-06] MEDS: ASPIRIN CHEW 81 MG TABLET PO SCH (09:31)
[2022-07-06] MEDS: ASCORBIC ACID 500 MG TABLET PO SCH ×2 (09:32→20:49)
[2022-07-06] MEDS: SERTRALINE 100 MG TABLET PO SCH (09:32)
[2022-07-06] MEDS: LEVOFLOXACIN INJ 750 MG/150 ML PREMIX IV SCH (09:32)
[2022-07-06] MEDS: predniSONE 5 MG TABLET PO SCH (09:32)
[2022-07-06] MEDS: ENOXAPARIN 40 MG/0.4 ML SYRINGE SUBCUT SCH (17:10)
[2022-07-06] MEDS: ATORVASTATIN 40 MG TABLET PO SCH (20:48)
[2022-07-06] MEDS: INSULIN GLARGINE 100 UNIT/ML SUBCUT SCH (20:48)
[2022-07-06] MEDS: MINERAL OIL/PETROLATUM OPH OINT 3.5 GM TUBE BOTH EYES SCH (20:49)
[2022-07-06] MEDS: OLANZapine 5 MG TABLET PO SCH (20:49)
[2022-07-07] MEDS: INSULIN REGULAR 100 UNIT/ML SUBCUT SCH ×7 (00:49→23:35)
[2022-07-07 03:58] LABS: Basophils % 0.4 % (0.0-0.8); Eosinophils # 0.3 10*3/uL (0.0-0.87); Eosinophils % 2.4 % (0.00-10.9); Hematocrit 37.5 VOL% (42.0-52.0); Hemoglobin 11.5 GM/DL (14.0-18.0); Immature Granulocytes % 2.8 %; Immature Granulocytes Absolute 0.29 #; Lymphocytes # 1.4 10*3/uL (1.4-4.0); Lymphocytes % 13.6 % (21.2-54.2); Mean Corpuscular HGB Conc 30.7 GM/DL (32-36); Mean Corpuscular Volume 82.4 FL (87-102); Mean Platelet Volume 11.5 FL (9.6-12.0); Monocytes # 0.7 10*3/uL (0.11-0.8); Monocytes % 6.2 % (1.7-12.7); Neutrophils % 74.6 % (38.7-73.9); Platelet Count 137 T/CUMM (130-400); Red Blood Count 4.55 MC/CUMM (3.8-5.5); Red Cell Distribution Width 15.6 % (9.3-17.3); White Blood Count 10.4 T/CUMM (4-12)
[2022-07-07 04:21] LABS: Hypochromia 1+
[2022-07-07 04:22] LABS: Calcium 8.5 MG/DL (8.5-10.1); Microcytosis 1+; Osmolality,Calculated 290.4 MOS/KG (273-304); Ovalocytes Slight; Platelet Estimate Adequate; Potassium 3.8 MMOL/L (3.5-5.1)
[2022-07-07] MEDS: SODIUM CHLORIDE 0.9% 1,000 ML IV SCH ×4 (05:15→23:07)
[2022-07-07] MEDS: PANTOPRAZOLE 40 MG VIAL IV SCH (09:31)
[2022-07-07] MEDS: ASCORBIC ACID 500 MG TABLET PO SCH ×2 (09:35→21:11)
[2022-07-07] MEDS: FOLIC ACID 1 MG TABLET PO SCH (09:35)
[2022-07-07] MEDS: VALSARTAN 80 MG TABLET PO SCH (09:35)
[2022-07-07] MEDS: GABAPENTIN 600 MG TABLET PO SCH ×2 (09:35→21:10)
[2022-07-07] MEDS: SERTRALINE 100 MG TABLET PO SCH (09:35)
[2022-07-07] MEDS: ASPIRIN CHEW 81 MG TABLET PO SCH (09:39)
[2022-07-07] MEDS: predniSONE 5 MG TABLET PO SCH (09:39)
[2022-07-07] MEDS: carvediloL 12.5 MG TABLET PO SCH ×2 (09:39→21:11)
[2022-07-07] MEDS: CLOPIDOGREL 75 MG TABLET PO SCH (09:39)
[2022-07-07] MEDS: AMIODARONE 200 MG TABLET PO SCH ×2 (09:39→21:11)
[2022-07-07] MEDS: LEVOFLOXACIN INJ 750 MG/150 ML PREMIX IV SCH (09:45)
[2022-07-07] MEDS ORDERED: DIAZEPAM 5 MG TABLET PO ONE ×2 (13:00)
[2022-07-07] MEDS ORDERED: diphenhydrAMINE CAP 25 MG CAPSULE PO ONE (13:00)
[2022-07-07] MEDS ORDERED: diphenhydrAMINE CAP 50 MG CAPSULE PO ONE (13:00)
[2022-07-07] MEDS ORDERED: HEPARIN/NACL 0.9% 2 UNITS/ML 2,000 UNIT/1,000 ML BAG IV ONE (13:20)
[2022-07-07] MEDS ORDERED: MIDAZOLAM 2 MG/2 ML VIAL ONE (14:02)
[2022-07-07] MEDS ORDERED: fentaNYL 100 MCG/2 ML VIAL ONE (14:02)
[2022-07-07] MEDS ORDERED: HEPARIN 5,000 UNIT/1 ML VIAL ONE (14:19)
[2022-07-07] MEDS ORDERED: NITROGLYCERIN DRIP 50 MG/250 ML BOTTLE IV ONE (14:42)
[2022-07-07] MEDS ORDERED: HEPARIN/NACL 0.9% 2 UNITS/ML 1,000 UNIT/500 ML BAG IV ONE (14:48)
[2022-07-07] MEDS ORDERED: CLOPIDOGREL 300 MG TABLET ONE (15:17)
[2022-07-07] MEDS: INSULIN GLARGINE 100 UNIT/ML SUBCUT SCH (21:10)
[2022-07-07] MEDS: OLANZapine 5 MG TABLET PO SCH (21:11)
[2022-07-07] MEDS: MINERAL OIL/PETROLATUM OPH OINT 3.5 GM TUBE BOTH EYES SCH (21:11)
[2022-07-07] MEDS: ATORVASTATIN 40 MG TABLET PO SCH (21:11)
[2022-07-08] MEDS: SODIUM CHLORIDE 0.9% 1,000 ML IV SCH (03:25)
[2022-07-08] MEDS: INSULIN REGULAR 100 UNIT/ML SUBCUT SCH ×5 (03:50→21:27)
[2022-07-08 03:51] LABS: Basophils # 0.1 10*3/uL (0.0-0.2); Basophils % 0.5 % (0.0-0.8); Eosinophils # 0.3 10*3/uL (0.0-0.87); Eosinophils % 2.6 % (0.00-10.9); Hematocrit 33.7 VOL% (42.0-52.0); Hemoglobin 10.4 GM/DL (14.0-18.0); Immature Granulocytes % 1.6 %; Immature Granulocytes Absolute 0.16 #; Lymphocytes # 0.9 10*3/uL (1.4-4.0); Lymphocytes % 8.6 % (21.2-54.2); Mean Corpuscular HGB Conc 30.9 GM/DL (32-36); Mean Corpuscular Volume 82.8 FL (87-102); Mean Platelet Volume 11.3 FL (9.6-12.0); Monocytes # 0.5 10*3/uL (0.11-0.8); Monocytes % 5.4 % (1.7-12.7); Neutrophils % 81.3 % (38.7-73.9); Platelet Count 145 T/CUMM (130-400); Red Blood Count 4.07 MC/CUMM (3.8-5.5); Red Cell Distribution Width 15.7 % (9.3-17.3); White Blood Count 9.9 T/CUMM (4-12)
[2022-07-08 04:05] LABS: Osmolality,Calculated 290.1 MOS/KG (273-304); Potassium 3.8 MMOL/L (3.5-5.1)
[2022-07-08] MEDS: PANTOPRAZOLE 40 MG VIAL IV SCH (08:29)
[2022-07-08] MEDS: ASPIRIN CHEW 81 MG TABLET PO SCH (08:30)
[2022-07-08] MEDS: VALSARTAN 80 MG TABLET PO SCH (08:30)
[2022-07-08] MEDS: predniSONE 5 MG TABLET PO SCH (08:30)
[2022-07-08] MEDS: GABAPENTIN 600 MG TABLET PO SCH ×2 (08:30→21:26)
[2022-07-08] MEDS: SERTRALINE 100 MG TABLET PO SCH (08:30)
[2022-07-08] MEDS: carvediloL 12.5 MG TABLET PO SCH ×2 (08:30→21:27)
[2022-07-08] MEDS: FOLIC ACID 1 MG TABLET PO SCH (08:30)
[2022-07-08] MEDS: CLOPIDOGREL 75 MG TABLET PO SCH (08:30)
[2022-07-08] MEDS: ASCORBIC ACID 500 MG TABLET PO SCH ×2 (08:30→21:27)
[2022-07-08] MEDS ORDERED: INSULIN REGULAR 100 UNIT/ML SUBCUT SCH (16:30)
[2022-07-08] MEDS: ENOXAPARIN 40 MG/0.4 ML SYRINGE SUBCUT SCH (17:00)
[2022-07-08] MEDS: ATORVASTATIN 40 MG TABLET PO SCH (21:26)
[2022-07-08] MEDS: INSULIN GLARGINE 100 UNIT/ML SUBCUT SCH (21:27)
[2022-07-08] MEDS: OLANZapine 5 MG TABLET PO SCH (21:27)
[2022-07-08] MEDS: MINERAL OIL/PETROLATUM OPH OINT 3.5 GM TUBE BOTH EYES SCH (21:34)
[2022-07-09] MEDS: INSULIN REGULAR 100 UNIT/ML SUBCUT SCH ×2 (09:44→11:57)
[2022-07-09] MEDS: PANTOPRAZOLE 40 MG VIAL IV SCH (10:05)
[2022-07-09] MEDS: GABAPENTIN 600 MG TABLET PO SCH (10:06)
[2022-07-09] MEDS: FOLIC ACID 1 MG TABLET PO SCH (10:06)
[2022-07-09] MEDS: CLOPIDOGREL 75 MG TABLET PO SCH (10:06)
[2022-07-09] MEDS: ASCORBIC ACID 500 MG TABLET PO SCH (10:06)
[2022-07-09] MEDS: SERTRALINE 100 MG TABLET PO SCH (10:07)
[2022-07-09] MEDS: ASPIRIN CHEW 81 MG TABLET PO SCH (10:07)
[2022-07-09] MEDS: VALSARTAN 80 MG TABLET PO SCH (10:07)
[2022-07-09] MEDS: carvediloL 12.5 MG TABLET PO SCH (10:07)
[2022-07-09 14:17] VITALS: BP 108/48
== END 2022-07-09 13:45 | DRG 246 ==
LOC: EDUNIT# → EDBD → N.ED 13:41 → N.CC 17:01 → SUATTDRO 17:01 → N.CC 17:02 → N.TELES 07-08 18:28
PROVIDERS: ADMIT Internal Medicine Cardiovascular Disease; ATTEND Internal Medicine Cardiovascular Disease